=== PATIENT | male | born 1945 | race Caucasian/White ===

== ENCOUNTER → 2019-07-17 00:01 | Outpatient (RCR) | payer MEDICARE, OTHER, SELFPAY | LOC: ONCMED 06-28 06:11 | PROVIDERS: Family Provider Family Medicine; Visit Provider Nurse Practitioner | DX: Z51.12 Encounter for antineoplastic immunotherapy (principal); Z51.11 Encounter for antineoplastic chemotherapy; C83.33 Diffuse large B-cell lymphoma, intra-abdominal lymph nodes; D70.1 Agranulocytosis secondary to cancer chemotherapy; T45.1X5A Adverse effect of antineoplastic and immunosuppressive drugs, initial encounter; Z45.2 Encounter for adjustment and management of vascular access device; E78.5 Hyperlipidemia, unspecified; I10 Essential (primary) hypertension; E03.9 Hypothyroidism, unspecified; Z96.652 Presence of left artificial knee joint | CPT/HCPCS: 36415; 36592; 80053 ×3; 85025 ×3; 96367; 96368; 96372; 96411; 96413; 96415; 96417; 99214; J1100; J1453; J1642; J2469; J2505; J7040 ×2; J9000; J9070 ×2; J9312 ×2; J9370 ==

== ENCOUNTER → 2019-08-16 10:15 | Day surgery (SDC) | payer MEDICARE, OTHER, SELFPAY ==
--- NOTE | 2019-08-16 11:20 | XR_ITS ---
WS: [id number] CHEST XRAY TECHNIQUE: Portable chest. CLINICAL INFORMATION: picc placement COMPARISON: June 27, 2019 FINDINGS: Right PICC line in the proximal to mid SVC in good position. No pneumothorax. XR/XR chest 1V portable [id number] IMPRESSION: Right PICC line in the proximal to mid SVC in good position. No pneumothorax.
[2019-08-16 13:33] VITALS: PULSE 70; RESP 16; TEMP 36.7; O2SAT 97
== END ==
PROVIDERS: Family Provider Registered Nurse; PCP Registered Nurse; Visit Provider Internal Medicine Medical Oncology
DX: C83.33 Diffuse large B-cell lymphoma, intra-abdominal lymph nodes (principal)
CPT/HCPCS: 71045

== ENCOUNTER 2019-08-17 09:23 | Outpatient (RCR) | payer MEDICARE, OTHER, SELFPAY ==
[2019-07-19] MEDS: acetaminophen 325 mg Tablet 650 MG PO (11:09)
--- NOTE | 2019-07-19 17:18 | ONC FU_ITS ---
[facility] Patient Note Patient: Mauro Otero Unit #: [id number]: 1945 Dictated By: Silvano ElliottDate of Visit: Jul 19, 2019 Onc MED Follow-Up/Prog Note Chief Complaint: Lymphoma. History of Present Illness: Mr Otero is a 74-year-old man with diffuse large B-cell lymphoma. He has a known history of abdominal aortic aneurysm for which he underwent abdominal aortic aneurysm repair using bifurcation graft in 2015. On his surveillance CT angiogram in April 2019 he was incidentally noted to have left periaortic lymphadenopathy. He then underwent CT directed needle biopsy of the left periaortic lymph node on 06/05/2019. Pathology was consistent with diffuse large B-cell lymphoma. The tumor cells were noted to be positive for CD45, CD20, CD10, CD23, BCL-2, and BCL-6. They were negative for CD3, CD5, CD21, CD30, and cyclin D1. The staining pattern by IHC was found to be consistent with diffuse large B-cell lymphoma, germinal center type. He was seen by Dr Hoffman for further management. He indicated that he has been feeling pretty good, though his energy had been down a touch, and he had not been very active. It was recommended that he pursue treatment with R-CHOP. He began his first cycle on 06/28/2019. He did have chemo induced neutropenia with ANC of 600 on day 8 of cycle 1. He was given Neulasta support on day 2 and his ANC recovered by day 15 with an ANC of 4400. He did not have any fever during the neutropenic episode. He states he is feeling good overall. He did have some diarrhea after the last chemotherapy treatment. We reviewed when in how much Imodium to start with. Mrs. Otero believes to have some on hand at home. If not they are encouraged to obtain it. He states he is eating good. His energy is fair. He is able to do some activities outside when the weather is good . He denies any pain. He denies any nausea or vomiting. He denies any depression although his seems to disagree. There is some concern about whether he is actually taking the Celexa or not when asked directly if he is taking it, he states he is but when the medication review was obtained they are uncertain if he was taking it or not. He was encouraged to bring his medication bottles with him on his next visit. His ECOG is 2. Past Medical History: Abdominal aortic aneurysm Hyperlipidemia Hypertension Hypothyroidism Past Surgical History: Abdominal aortic aneurysm repair in 2015 Left total knee arthroplasty in 2011 Arthroscopic left knee surgery in 2010 Allergies: No Known Allergies. Medications: ALPRAZolam 1 Tablet (of 0.25 mg) Oral t.i.d. PRN amLODIPine Besylate 1 Tablet (of 5 mg) Oral daily CeleXA 1 Tablet (of 20 mg) Oral daily Levothyroxine Sodium 1 Tablet (of 50 mcg) Oral daily LORazepam 0.5 - 1 Tablet (of 1 mg) Oral t.i.d. PRN Prochlorperazine Maleate 1 Tablet (of 10 mg) Oral q 4 hours PRN Simvastatin 1 Tablet (of 40 mg) Oral daily Family History: Mr. Otero's mother at age 70: brain cancer. Mr. Otero's father at age 85. Mr. Otero has 2 brothers: 1 alive, 1 . He has 2 sisters: 1 alive, 1 . Father at 85 with old age. Mother of brain cancer at age 70. A sister of lung disease and brother from complications related to an aneurysm. His other brother also has a history of aneurysm. Several paternal uncles dropped over . Social History: Mr. Oteor is and he is retired. Mr. Otero has never smoked. He has no history of drinking. Mr. Otero reports the following support systems: lives with spouse, significant other, family, or friends, lives in own house, supportive family/friends willing to assist with needs, and transportation problems exist and will require assistance. His diet consists of regular meals. He indicates his activity level as: light exercise. He is a nonsmoker. He does not drink alcohol. Review Of Symptoms: Constitutional Denies fevers, chills, night sweats, excessive fatigue or weight loss. Allergic/Immunologic No reactions. Eyes Denies significant visual changes. No diplopia. No amaurosis. ENMT Denies changes in hearing, sore throat, mouth sores, difficulty or changes in swallowing ability, and/or sinus drainage. Endocrine No diabetes, thyroid disease or hormone replacement. Denies hot flashes or night sweats. Hematologic/Lymphatic Denies easy bruising or bleeding. The patient denies any tender or palpable lymph nodes. Respiratory Denies dyspnea on exertion, chest pain, cough or hemoptysis. Denies orthopnea. Cardiovascular Denies anginal chest pain, palpitations or orthopnea. Gastrointestinal Denies nausea, vomiting, GI bleeding, or constipation. Denies change in bowel habits and/or stool color, no heartburn or early satiety. He states he did have diarrhea after the last treatment but has not tried anything for it. His does think they have Imodium on hand at home Genitourinary (M) Denies hematuria, dysuria, increased frequency, urgency, hesitancy or incontinence. Musculoskeletal Denies joint pain, swelling or redness. No decreased range of motion. Integumentary Denies chronic rashes, inflammation, ulcerations or skin changes. Neurologic Denies headache, blurred vision, and no areas of focal weakness or numbness. Normal gait. No sensory problems. Psychiatric Denies insomnia, depression, mj or mood swings. When asked about depression or mood swings he states I am okay . He denies depression. His seems to disagree but he is adamant in that he is not having depression and I am okay . Vital Signs: Performed on Jul 19, 2019 09:35 Height - 71.00 in Weight - 204.4 lbs (LOW) BSA - 2.13 sq.m BMI - 28.51 Temperature - 97.4 F (LOW) Pulse - 74 /min Respiration - 22 /min BP - 125/74 mm(hg) O2 Sat - 97 % Pain - 0,2 - Ambulatory/capable of all self-care, unable to perform any work activities. Up and about more than 50% of waking hours. (ECOG) Physical Examination: Constitutional Alert, oriented, no acute distress. Skin pink, warm and dry. Head Normocephalic; atraumatic. Eyes Conjunctivae and sclerae are clear and without icterus. Pupils are reactive and equal. ENMT No oral exudates, ulcers, masses, thrush or mucositis. Oropharynx clear. Tongue normal. Neck Supple without masses or thyromegaly. No jugular venous distension. Hematologic/Lymphatic No petechiae or purpura. No tender or palpable lymph nodes in the cervical or supraclavicular areas. Respiratory Lungs are clear to auscultation without rhonchi or wheezing. Cardiovascular Regular rate and rhythm of heart without murmurs,clicks, gallops or rubs. Abdomen Non-tender, non-distended, no masses or ascites. Good bowel sounds noted in all quads. No guarding or rebound tenderness. No pulsatile masses. Back/Spine Non-tender to palpation. Extremities No visible deformities, no cyanosis, clubbing or edema. Musculoskeletal No tenderness or swelling, normal range of motion without obvious weakness. Integumentary No rashes or lesions. Neurologic No sensory or motor deficits, normal cerebellar function, normal gait. Psychiatric Alert and oriented times three. Coherent speech. Verbalizes understanding of our discussions today. Laboratory:Test performed on Jul 04, 2019 07:50 Sodium 138 mmol/L Potassium 4.2 mmol/L Chloride 101 mmol/L CO2 27 mmol/L Anion Gap 14.2 BUN 15 mg/dL Creatinine 0.6 mg/dL Cr Clearance (Est) 144.2100 mL/min Glucose 142 mg/dl Calcium 8.5 mg/dL Protein, Total 7.1 g/dL Albumin 4.2 g/dL Globulin 2.9 gm/dL Bilirubin, Total 0.4 mg/dL ALT (SGPT) 12 U/L AST (SGOT) 15 U/L Alkaline Phosphatase 77 U/L WBC 1.1 10 3/uL RBC 3.81 10 6/uL HGB 11.6 g/dL HCT 35.6 % MCV 93.4 fl MCH 30.4 pg MCHC 32.6 g/dl RDW 13.1 % Platelet Count 100 10 3/cmm MPV 9.7 fl Neutrophils 0.6 10 3/uL Lymphocytes 0.2 10 3/uL Monocytes 0.0 10 3/uL Eosinophils 0.0 10 3/uL Basophils 0.0 10 3/uL Neutrophil % 56.6 % Lymphocyte % 20.8 % Monocyte % 0.9 % Eosinophil % 1.9 % Basophils % 0.0 % CBC Slide Review SLIDE REVIEW PERFORM SLIDE REVIEW AGREES WITH AUTOMATED RESULTS ST Test performed on Jun 26, 2019 13:45 Hepatitis B Surf Antigen Non-Reactive Hepatitis B Surface Ab < 3.5 STATUS of IMMUINITY Inconsistent with Immunity 0.0 - 8.5 mIU/mL Consistent with Immunity >8.5 mIU/mL Hepatitis B Core Ab, Total Non-Reactive Test performed on Jun 20, 2019 16:05 LDH (Total) 302 U/L Uric Acid 5.2 mg/dl PT 14.2 SECONDS INR 1.06 Impression: 1. Patient with diffuse large B-cell lymphoma, germinal center subtype, presenting with CT evidence of left periaortic lymphadenopathy. Staging is incomplete. 2. He underwent CT-directed needle biopsy of a left periaortic lymph node on 06/05/2019. His other medical illnesses include: 3. Hypertension. 4. Hyperlipidemia. 5. Hypothyroidism. 6. He underwent abdominal aortic aneurysm repair with bifurcation graft in 2016. /The pathology results and clinical implications were reviewed with the patient and his . He has newly diagnosed diffuse large B-cell lymphoma. Thus far the only known site of involvement is a left periaortic lymph node, but he will need to complete staging with PET/CT and possibly bone marrow aspiration/biopsy. We discussed the fact that lymphomas /are generally responsive to chemotherapy and with an intermediate grade lymphoma the disease would potentially be curable. The major limitation in treating elderly patients is the potential for chemotherapy related toxicity, particularly the risk of neutropenic fever. The standard treatment, though, would be 6 cycles of CHOP chemotherapy in combination with rituximab. PiCC line insertion due unable to placement complications of port a cath. His first chemo stated on 06/28/19. Plan: 1. Proceed with cycle 2 R-CHOP. He will also continue growth factor. He also continue the same anti-medics as they are working well for him. 2. He was advised to make sure he has Imodium on hand in case he has recurrent diarrhea. He is advised to take it at the first loose stool and call if he is continues to have problems after 6-8 tablets in a day. He would need Lomotil at that time. 3. Labs from 07/17/2019 were reviewed in detail and discussed with and Mrs. Otero and a copy was given to them. WBC 6.1, hemoglobin 10.8, platelets 3 and 29,000 ANC is 4800 potassium 4.3 creatinine is 0.7 LFTs are normal. 4. He will need to refill his antibiotics and have them on hand if he use them at all last cycle. He had neutropenia on day 8 with an ANC of 600. He recovered well with an ANC of 4400 the following week. 5. We will plan for CBC/CMP weekly for chemo monitoring 6. . Mrs. Otero instructed to call in the interim if any questions or problems arise. 7. He states the Celexa to 20 mg po daily is controlling his depression. However when the medication review was obtained Mr. Mrs. Otero was uncertain if he was taking the Celexa at that time. He is adamant in denying that he is having any worsening of depression. Signed By: Silvano Elliott-, [facility] Murray Hoffman MD <<Signature on File>>
[2019-08-08 16:02] LABS: Basophils % 0.9 %; Eosinophils % 0.5 %; Hematocrit 34.7 % (42.0-52.0); Lymphocytes # 0.6 10^3/uL (0.8-4.8); Lymphocytes % 14.7 %; Mean Corpuscular HGB Conc 31.7 g/dL (30.0-36.0); Mean Corpuscular Hemoglobin 29.2 pg (28.0-34.0); Mean Platelet Volume 9.1 fL (7.4-10.4); Monocytes # 0.4 10^3/uL (0.2-0.9); Neutrophils # 3.1 10^3/uL (1.8-7.7); Nucleated Red Blood Cells % 0 %; Platelet Count 204 10^3/cmm (130-400); Red Blood Count 3.77 10^6/uL (4.1-5.3); Red Cell Distribution Width 16.3 % (12.1-15.1); White Blood Count 4.3 10^3/uL (4.0-10.0)
[2019-08-08 19:00] LABS: Alanine Aminotransferase 11 U/L (0-41); Albumin Level 3.9 g/dL (3.5-5.2); Alkaline Phosphatase 78 IU/L (40-130); Anion Gap 15.3 (5-19); Aspartate Amino Transferase 17 U/L (0-40); Blood Urea Nitrogen 9 mg/dL (8-23); Calcium 9.5 mg/Dl (8.8-10.2); Carbon Dioxide 26 mmol/L (22-29); Chloride 103 mmol/L (98-107); Globulin 3.1 g/dL (1.3-4.6); Glucose 85 mg/dL (74-106); Lactate Dehydrogenase 184 U/L (135-225); Potassium 4.3 mmol/L (3.5-5.1); Sodium 140 mmol/L (136-145); Total Bilirubin 0.3 mg/dL (0.15-1.2)
[2019-08-09] MEDS: acetaminophen 325 mg Tablet 650 MG PO (10:07)
[2019-08-09] MEDS: sodium chloride 0.9% 500 ML 999 ML IV (10:07)
--- NOTE | 2019-08-11 15:48 | ONC FU_ITS ---
Dr. Hoffman Patient Follow-Up Note Patient: Mauro Otero Unit #: [id number]: 1945 Dicatated By: Murray Hoffman M.D.Date of Visit:Aug 09, 2019 Onc Med Follow-up/Prog Note Chief Complaint: Lymphoma. History of Present Illness: This is a 74-year-old man with diffuse large B-cell lymphoma, by clinical evaluation at least stage III and IPI at least 3. He has a known history of abdominal aortic aneurysm for which he underwent abdominal aortic aneurysm repair using bifurcation graft in 2015. On his surveillance CT angiogram in April 2019 he was incidentally noted to have left periaortic lymphadenopathy. He then underwent CT directed needle biopsy of the left periaortic lymph node on 06/05/2019. Pathology was consistent with diffuse large B-cell lymphoma. The tumor cells were noted to be positive for CD45, CD20, CD10, CD23, BCL-2, and BCL-6. They were negative for CD3, CD5, CD21, CD30, and cyclin D1. The staining pattern by IHC was found to be consistent with diffuse large B-cell lymphoma, germinal center type. I had seen him initially on 06/18/2019. Staging PET/CT on 06/23/2019 showed a 1.9 x 1.3 cm left upper lobe pulmonary nodule with SUV 23.8, consistent with extranodal disease. Also noted were FDG positive lymph nodes in the posterior mediastinum and left hilar region with SUVs up to 9.4. Bilateral retrocrural lymph nodes were also FDG positive. A complex retroperitoneal mass was noted to envelop the aortic aneurysm, roughly measuring 12.9 x 9.9 cm with SUV 34.4. There were positive mesenteric lymph nodes, consistent with lymphoma. His baseline echocardiogram showed normal left ventricular systolic function with ejection fraction estimated at 65%. With those findings and with relatively good performance status, he was recommended to undergo treatment with R-CHOP chemotherapy. His other medical illnesses, in addition to the abdominal aortic aneurysm, include hypertension, hyperlipidemia, hypothyroidism, and degenerative arthritis. He is a non-smoker. INTERIM HISTORY: He began cycle 1 of R-CHOP chemotherapy on 06/28/2019. He tolerated the treatment with acceptable toxicity, and he was able to continue with cycle 2 on 07/19/2019. He is seen for a follow-up visit. He has been feeling good generally. He has been tolerating the chemotherapy surprisingly well. He says his energy has been good, and he is doing normal stuff . ECOG score is 1. He has good appetite. He has no fever or night sweats. He has had no mouth sores. He has no shortness of breath, cough, or chest pain. He has no GI complaints other than 1 or 2 episodes of diarrhea following his first treatment. He has had none since then. Bladder function has been okay. He has no significant joint or bone pain. He has no numbness/paresthesia or other focal neurologic symptoms. Medications: ALPRAZolam 1 Tablet (of 0.25 mg) Oral t.i.d. PRN, amLODIPine Besylate 1 Tablet (of 5 mg) Oral daily, CeleXA 1 Tablet (of 20 mg) Oral daily, Levothyroxine Sodium 1 Tablet (of 50 mcg) Oral daily, LORazepam 0.5 - 1 Tablet (of 1 mg) Oral t.i.d. PRN, Prochlorperazine Maleate 1 Tablet (of 10 mg) Oral q 4 hours PRN, Simvastatin 1 Tablet (of 40 mg) Oral daily Allergies: No Known Allergies. Review of Systems: Constitutional - His energy is pretty good. He is able to do light work. His appetite is good. He has lost weight. He has had no fever or night sweats. ECOG score is 1, ENMT - No sinus congestion/drainage. No mouth sores. No sore throat or difficulty swallowing, Hematologic/Lymphatic - No abnormal bruising or bleeding, Respiratory - No shortness of breath. No cough. No pleuritic pain or hemoptysis, Cardiovascular - No angina pain. No palpitations, Gastrointestinal - No nausea or vomiting. No heartburn or acid reflux. He had diarrhea once or twice after his first treatment, but none since then. No blood in the stool or black stools, Genitourinary (M) - No dysuria or hematuria. No urinary frequency. No urgency or incontinence, Musculoskeletal - He currently has no joint or bone pain, Integumentary - No skin complications, Neurologic - No headache or dizziness. No numbness/paresthesias or other focal neurologic symptoms, Psychiatric - No anxiety or depression. No insomnia. Vital Signs: Performed on Aug 09, 2019 09:05 Height - 71.00 in Weight - 203.2 lbs (LOW) BSA - 2.12 sq.m BMI - 28.34 Temperature - 98.1 F (LOW) Pulse - 68 /min Respiration - 16 /min BP - 121/70 mm(hg) O2 Sat - 98 % Pain - 0 Fatigue - 8 Physical Examination: Constitutional - He looks pretty good generally, Eyes - Sclerae nonicteric. Conjunctivae clear, ENMT - No lesions noted in the oral cavity, Hematologic/Lymphatic - No cervical, clavicular, or axillary adenopathy, Respiratory - Lungs are clear with good air movement bilaterally, Cardiovascular - Heart rhythm is regular. There is no murmur, gallop, or rub noted, Abdomen - Soft. He has a large ventral hernia. Liver and spleen are not enlarged. There is no abdominal mass or ascites noted and there is no inguinal adenopathy, Extremities - No edema, Neurologic - No focal neurologic deficits noted. Lab/Imaging: CBC shows hemoglobin 11.0 g, white blood cell count 4300, and platelet count 204,000. Comprehensive metabolic profile is unremarkable. LDH is normal at 184 U/L. Impression: 1. Patient with diffuse large B-cell lymphoma, germinal center subtype, presenting with CT evidence of left periaortic lymphadenopathy. By clinical evaluation his disease was at least stage III with IPI score 3. 2. There was also PET/CT evidence of FDG avid left upper lobe pulmonary nodule, possibly indicative of extranodal lymphoma (stage IV) versus other primary malignancy. 3. He underwent CT-directed needle biopsy of a left periaortic lymph node on 06/05/2019. His other medical illnesses include: 4. Hypertension. 5. Hyperlipidemia. 6. Hypothyroidism. 7. Degenerative arthritis. 8. He underwent abdominal aortic aneurysm repair with bifurcation graft in 2015. He began treatment with R-CHOP chemotherapy, cycle 1 day 1 on 06/28/2019. He tolerated the treatment well, and he continued with cycle 2 on 07/19/2019. Thus far he continues to have very minimal toxicity with the chemotherapy. He has not yet been evaluated for response. Plan: He will proceed now with cycle 3 of R-CHOP chemotherapy. The dosages will remain the same. He returns in 3 weeks. He will have a restaging PET/CT prior to that visit. Signed By: Murray Hoffman M.D. <<Signature on File>>
== END 2019-08-17 23:59 | disposition home or self-care (01) ==
LOC: ONCMED 09:23
PROVIDERS: Nurse Practitioner; Family Provider Registered Nurse; PCP Registered Nurse; Visit Provider Internal Medicine Medical Oncology
DX: Z51.12 Encounter for antineoplastic immunotherapy (principal); C83.33 Diffuse large B-cell lymphoma, intra-abdominal lymph nodes; D70.1 Agranulocytosis secondary to cancer chemotherapy; T45.1X5A Adverse effect of antineoplastic and immunosuppressive drugs, initial encounter; E78.5 Hyperlipidemia, unspecified; I10 Essential (primary) hypertension; E03.9 Hypothyroidism, unspecified; Z96.652 Presence of left artificial knee joint
CPT/HCPCS: 80053; 83615; 85025; 87070; 87205; 96367; 96372; 96411; 96413; 96415; 96417; 99214; J1100; J1200; J1453; J2469; J2505; J7040; J9000; J9070; J9312; J9370

== ENCOUNTER 2019-09-11 13:42 | Outpatient (RCR) | payer MEDICARE, OTHER, SELFPAY ==
[2019-08-29 12:39] LABS: Basophils % 0.3 %; Hematocrit 35.4 % (42.0-52.0); Hemoglobin 11.3 g/dL (11.7-16.6); Lymphocytes # 0.7 10^3/uL (0.8-4.8); Lymphocytes % 11.9 %; Mean Corpuscular HGB Conc 31.9 g/dL (30.0-36.0); Mean Corpuscular Hemoglobin 30.1 pg (28.0-34.0); Mean Corpuscular Volume 94.1 fL (80-94); Mean Platelet Volume 9.1 fL (7.4-10.4); Monocytes # 0.5 10^3/uL (0.2-0.9); Monocytes % 8.5 %; Neutrophils # 4.7 10^3/uL (1.8-7.7); Neutrophils % 77.8 %; Nucleated Red Blood Cells % 0 %; Platelet Count 209 10^3/cmm (130-400); Red Blood Count 3.76 10^6/uL (4.1-5.3); Red Cell Distribution Width 17.7 % (12.1-15.1)
[2019-08-29 12:49] LABS: Alanine Aminotransferase 15 U/L (0-41); Albumin Level 4.2 g/dL (3.5-5.2); Alkaline Phosphatase 63 IU/L (40-130); Aspartate Amino Transferase 16 U/L (0-40); Carbon Dioxide 28 mmol/L (22-29); Chloride 104 mmol/L (98-107); Globulin 2.8 g/dL (1.3-4.6); Glucose 73 mg/dL (65-115); Lactate Dehydrogenase 171 U/L (135-225); Sodium 141 mmol/L (136-145); Total Bilirubin 0.2 mg/dL (0.15-1.2)
[2019-08-29 13:36] LABS: Blood Urea Nitrogen 17 mg/dL (8-23)
[2019-08-29 14:15] LABS: Calcium 9.3 mg/dL (8.5-10.5)
[2019-09-05] MEDS: sodium chloride 0.9% 1,000 ML 999 ML IV (10:54)
[2019-09-05] MEDS: acetaminophen 325 mg Tablet 650 MG PO (11:14)
--- NOTE | 2019-09-09 16:57 | ONC FU_ITS ---
Dr. Hoffman Patient Follow-Up Note Patient: Mauro Otero Unit #: [id number]: 1945 Dicatated By: Murray Hoffman M.D.Date of Visit:Sep 05, 2019 Onc Med Follow-up/Prog Note Chief Complaint: Lymphoma. History of Present Illness: This is a 74-year-old man with diffuse large B-cell lymphoma, by clinical evaluation at least stage III and IPI at least 3. He has a known history of abdominal aortic aneurysm for which he underwent abdominal aortic aneurysm repair using bifurcation graft in 2015. On his surveillance CT angiogram in April 2019 he was incidentally noted to have left periaortic lymphadenopathy. He then underwent CT directed needle biopsy of the left periaortic lymph node on 06/05/2019. Pathology was consistent with diffuse large B-cell lymphoma. The tumor cells were noted to be positive for CD45, CD20, CD10, CD23, BCL-2, and BCL-6. They were negative for CD3, CD5, CD21, CD30, and cyclin D1. The staining pattern by IHC was found to be consistent with diffuse large B-cell lymphoma, germinal center type. I had seen him initially on 06/18/2019. Staging PET/CT on 06/23/2019 showed a 1.9 x 1.3 cm left upper lobe pulmonary nodule with SUV 23.8, consistent with extranodal disease. Also noted were FDG positive lymph nodes in the posterior mediastinum and left hilar region with SUVs up to 9.4. Bilateral retrocrural lymph nodes were also FDG positive. A complex retroperitoneal mass was noted to envelop the aortic aneurysm, roughly measuring 12.9 x 9.9 cm with SUV 34.4. There were positive mesenteric lymph nodes, consistent with lymphoma. His baseline echocardiogram showed normal left ventricular systolic function with ejection fraction estimated at 65%. With those findings and with relatively good performance status, he was recommended to undergo treatment with R-CHOP chemotherapy. His other medical illnesses, in addition to the abdominal aortic aneurysm, include hypertension, hyperlipidemia, hypothyroidism, and degenerative arthritis. He is a non-smoker. INTERIM HISTORY: He began cycle 1 of R-CHOP chemotherapy on 06/28/2019. He tolerated the treatment with acceptable toxicity. He was then able to continue with cycle 2 on 07/19/2019 and with cycle 3 on 08/09/2019. Restaging PET/CT on 09/01/2019 showed residual abdominal mass encasing the aorta measuring 8.6 x 8.7 cm but with only minimal FDG activity. Mediastinal lymph nodes were noted to be subcentimeter in size and FDG negative. Retrocrural and lymph nodes were also subcentimeter in size and FDG negative. The left upper lobe pulmonary nodule was noted to measure 1.0 cm and it was no longer clearly solid. It was entirely FDG negative. Overall, the findings were consistent with a near complete response to therapy (Deauville Criteria 2). He is seen for a scheduled visit. He says he is feeling pretty good, though his family indicates that he has had a definite decline in his activity since his last treatment. They also have noticed significant changes in memory and cognitive function. He is still up and around. His ECOG score is 2. He has good appetite. His weight is stable. He has no fever or night sweats. He has had no mouth sores. He does have some hoarseness. He does not complain of shortness of breath, cough, or chest pain. He has had no nausea/vomiting. He has had some loose stools, and he occasionally has had difficulty controlling them, but he has been insistent on taking a laxative every day. He has frequent urination. He has no significant joint or bone pain. He does not complain of headache. He has having some difficulty with balance. He has no numbness/paresthesia or other focal neurologic symptoms. Medications: ALPRAZolam 1 Tablet (of 0.25 mg) Oral t.i.d. PRN, amLODIPine Besylate 1 Tablet (of 5 mg) Oral daily, CeleXA 1 Tablet (of 20 mg) Oral daily, Levothyroxine Sodium 1 Tablet (of 50 mcg) Oral daily, LORazepam 0.5 - 1 Tablet (of 1 mg) Oral t.i.d. PRN, Prochlorperazine Maleate 1 Tablet (of 10 mg) Oral q 4 hours PRN, Simvastatin 1 Tablet (of 40 mg) Oral daily Allergies: No Known Allergies. Review of Systems: Constitutional - His energy is pretty good generally. He does not do much physical activity, but he is up and around at home. His appetite is good and his weight is holding stable. No fever, chills, hot flashes, or night sweats. ECOG score is 2, ENMT - No sinus congestion/drainage. No mouth sores. No sore throat or difficulty swallowing, Hematologic/Lymphatic - No abnormal bruising or bleeding, Respiratory - No shortness of breath. No cough. No pleuritic pain or hemoptysis, Cardiovascular - No angina pain. No palpitations, Gastrointestinal - No nausea or vomiting. No heartburn or acid reflux. No diarrhea or constipation. He sometimes has incontinence. No blood in the stool or black stools, Genitourinary (M) - No dysuria or hematuria. He has urinary frequency. No urgency or incontinence, Musculoskeletal - No joint or bone pain, Integumentary - No skin complications, Neurologic - No headache. His balance is worse. No numbness/paresthesias or other focal neurologic symptoms. He has trouble with his memory, Psychiatric - No anxiety or depression. No insomnia. Vital Signs: Performed on Sep 05, 2019 09:48 Height - 71.00 in Weight - 201.2 lbs (HIGH) BSA - 2.11 sq.m BMI - 28.06 Temperature - 98.4 F Pulse - 74 /min Respiration - 24 /min BP - 134/80 mm(hg) O2 Sat - 99 % Pain - 0 Physical Examination: Constitutional - He appears somewhat weaker generally, Eyes - Sclerae nonicteric. Conjunctivae clear, ENMT - No lesions noted in the oral cavity, Hematologic/Lymphatic - No cervical, clavicular, or axillary adenopathy, Respiratory - Lungs are clear with good air movement bilaterally, Cardiovascular - Heart rhythm is regular. There is no murmur, gallop, or rub noted, Abdomen - Soft. He has a large ventral hernia. Liver and spleen are not enlarged. There is no abdominal mass or ascites noted and there is no inguinal adenopathy, Extremities - No edema, Neurologic - He does appear to have some decline in cognitive function, and he has somewhat of a shuffling gait. There are no focal neurologic deficits noted. Lab/Imaging: Test performed on Aug 29, 2019 07:50 LDH (Total) 171 U/L Sodium 141 mmol/L Potassium 4.0 mmol/L Chloride 104 mmol/L CO2 28 mmol/L Anion Gap 13.0 BUN 17 mg/dL Creatinine 0.7 mg/dL Cr Clearance (Est) 121.5400 mL/min Glucose 73 mg/dL Calcium 9.3 mg/dL Protein, Total 7.0 g/dL Albumin 4.2 g/dL Globulin 2.8 g/dL Bilirubin, Total 0.2 mg/dL ALT (SGPT) 15 U/L AST (SGOT) 16 U/L Alkaline Phosphatase 63 IU/L WBC 6.0 10 3/uL RBC 3.76 10 6/uL HGB 11.3 g/dL HCT 35.4 % MCV 94.1 fL MCH 30.1 pg MCHC 31.9 g/dL RDW 17.7 % Platelet Count 209 10 3/cmm MPV 9.1 fL Neutrophils 4.7 10 3/uL Lymphocytes 0.7 10 3/uL Monocytes 0.5 10 3/uL Eosinophils 0.0 10 3/uL Basophils 0.0 10 3/uL Neutrophil % 77.8 % Lymphocyte % 11.9 % Monocyte % 8.5 % Eosinophil % 0.0 % Basophils % 0.3 % Impression: 1. Patient with diffuse large B-cell lymphoma, germinal center subtype, presenting with CT evidence of left periaortic lymphadenopathy. By clinical evaluation his disease was at least stage III with IPI score 3. 2. There was also PET/CT evidence of FDG avid left upper lobe pulmonary nodule, possibly indicative of extranodal lymphoma (stage IV) versus other primary malignancy. 3. He underwent CT-directed needle biopsy of a left periaortic lymph node on 06/05/2019. His other medical illnesses include: 4. Hypertension. 5. Hyperlipidemia. 6. Hypothyroidism. 7. Degenerative arthritis. 8. He underwent abdominal aortic aneurysm repair with bifurcation graft in 2015. He began treatment with R-CHOP chemotherapy, cycle 1 day 1 on 06/28/2019. He tolerated the treatment well. He continued with cycle 2 on 07/19/2019 and with cycle 3 on 08/09/2019. Following his last cycle of treatment there has been definite decline in his performance status and a significant change in his cognitive function and memory. He does have a very good response by restaging PET/CT. Plan: I reviewed the PET/CT findings with the patient and his family. We discussed the clinical implications. He has had a very good response to the chemotherapy, but it does not appear to be a complete response. Ideally he should complete 6 cycles of treatment. However, he has had a significant decline in his performance status and his cognitive function following his last treatment, and I feel that there will be significant risks with continuing further chemotherapy. However, at a minimum, I think he should complete 1 more cycle, as he is otherwise tolerating it well. They are agreeable, so that he will proceed today with cycle 4 of R-CHOP. He will then be followed on observation/expectant management. Signed By: Murray Hoffman M.D. <<Signature on File>>
[2019-09-11 14:47] LABS: Basophils % 1.1 %; Eosinophils # 0.1 10^3/uL (0.0-0.8); Eosinophils % 1.8 %; Hematocrit 33.1 % (42.0-52.0); Hemoglobin 10.6 g/dL (11.7-16.6); Lymphocytes # 0.4 10^3/uL (0.8-4.8); Lymphocytes % 12.7 %; Mean Corpuscular Hemoglobin 30.4 pg (28.0-34.0); Mean Corpuscular Volume 94.8 fL (80-94); Mean Platelet Volume 9.8 fL (7.4-10.4); Monocytes # 0.1 10^3/uL (0.2-0.9); Monocytes % 4.2 %; Neutrophils # 2.2 10^3/uL (1.8-7.7); Neutrophils % 78.8 %; Nucleated Red Blood Cells % 0 %; Platelet Count 79 10^3/cmm (130-400); Red Blood Count 3.49 10^6/uL (4.1-5.3); Red Cell Distribution Width 16.7 % (12.1-15.1); White Blood Count 2.8 10^3/uL (4.0-10.0)
[2019-09-11 15:23] LABS: Slide Review Slide Review Perform
== END 2019-09-15 23:59 | disposition home or self-care (01) ==
LOC: ONCMED 13:42
PROVIDERS: Family Provider Registered Nurse; PCP Registered Nurse; Visit Provider Internal Medicine Medical Oncology
DX: Z51.12 Encounter for antineoplastic immunotherapy (principal); C83.33 Diffuse large B-cell lymphoma, intra-abdominal lymph nodes; D70.1 Agranulocytosis secondary to cancer chemotherapy; T45.1X5A Adverse effect of antineoplastic and immunosuppressive drugs, initial encounter; I10 Essential (primary) hypertension; E78.5 Hyperlipidemia, unspecified; E03.9 Hypothyroidism, unspecified; M19.90 Unspecified osteoarthritis, unspecified site; Z79.899 Other long term (current) drug therapy
CPT/HCPCS: 36592; 80053; 83615; 85025; 96367; 96372; 96411; 96413; 96415; 96417; 99214; J1100; J1200; J1453; J2469; J2505; J7030; J7040; J9000; J9070; J9312; J9370

== ENCOUNTER 2019-09-20 06:08 | Outpatient (RCR) | payer MEDICARE, OTHER, SELFPAY ==
--- NOTE | 2019-09-20 08:22 | MR_ITS ---
WS: [id number] MRI HEAD WITH CONTRAST TECHNIQUE: Sagittal T1, T2 axial, T2 axial FLAIR, axial susceptibility weighted imaging, axial diffus ion weighted images, and coronal T2 images were obtained. Pre and post-T1 axial and post T1 coronal i mages. ADC and FSPGR images. CLINICAL INFORMATION: CONFUSION;MEMORY LOSS;EVAL OF NEW SYMPTOMS;HX OF CANCER COMPARISON: None. FINDINGS: Large heterogeneous enhancing left frontal mass. Large left frontal mass with internal necrosis and c ystic change. Left frontal mass measures approximately 7.1 x 3.3 x 5.5 CM. Large amount of surroundin g edema and mass effect on the left lateral ventricle. Left to right midline shift measures approxima tely 1.7 CM. No significant hydrocephalus. No significant ventricular trapping. Additional peripheral enhancement involving the left frontal mass extending to the left ventricular m argin with ependymal enhancement. Suspect leptomeningeal and CSF dissemination of disease. Mass effec t and flattening of the adjacent corpus callosum. Small amount of enhancement crosses midline along t he right frontal horn. In addition peripheral enhancement extends to the cortical surface with leptom eningeal involvement. A few small foci of hemosiderin within the left frontal mass. No large hematoma . No evidence of acute ischemia. Moderate parenchymal volume loss. Mild small vessel changes. Normal va scular flow voids at the skull base. Heterogeneous bone marrow signal in the upper cervical spine and clivus consistent with history of lymphoma. No other abnormal foci of enhancement. Paranasal sinuses and mastoid air cells are well aerated. Notified Rosita ALVARADO at 09/20/2019 10:00 AM MR/MR head wo/w con [id number] IMPRESSION: 1. Large heterogeneously enhancing left frontal mass consistent with metastati c disease measuring 7.1 x 3.3 x 5.5 cm described above. Large amount of surroun ding edema. 2. Left to right midline shift measuring 1.7 CM. 3. Enhancement extends to the ventricular surface and cortical surface suspici ous for leptomeningeal spread of disease 4. Effacement of the left lateral ventricle and partial effacement right later al ventricle. No significant trapping or hydrocephalus. 5. Heterogeneous bone marrow signal in the upper cervical spine and clivus con sistent with history of lymphoma. 6. No other abnormal intracranial enhancing foci.
[2019-09-20] MEDS: sodium chloride 0.9% 1,000 ML 999 ML IV (09:00)
[2019-09-20 09:19] LABS: Basophils % 0.3 %; Eosinophils # 0.1 10^3/uL (0.0-0.8); Eosinophils % 0.9 %; Hematocrit 33.5 % (42.0-52.0); Hemoglobin 10.8 g/dL (11.7-16.6); Lymphocytes # 0.6 10^3/uL (0.8-4.8); Lymphocytes % 9.4 %; Mean Corpuscular HGB Conc 32.2 g/dL (30.0-36.0); Mean Corpuscular Hemoglobin 30.6 pg (28.0-34.0); Mean Corpuscular Volume 94.9 fL (80-94); Monocytes # 0.6 10^3/uL (0.2-0.9); Monocytes % 8.8 %; Neutrophils # 5.1 10^3/uL (1.8-7.7); Neutrophils % 79.5 %; Nucleated Red Blood Cells % 0 %; Platelet Count 155 10^3/cmm (130-400); Red Blood Count 3.53 10^6/uL (4.1-5.3); Red Cell Distribution Width 16.8 % (12.1-15.1); White Blood Count 6.4 10^3/uL (4.0-10.0)
[2019-09-20 11:24] LABS: Alanine Aminotransferase 9 U/L (0-41); Albumin Level 3.9 g/dL (3.5-5.2); Alkaline Phosphatase 87 IU/L (40-130); Anion Gap 15.2 (5-19); Aspartate Amino Transferase 18 U/L (0-40); Blood Urea Nitrogen 13 mg/dL (8-23); Calcium 9.6 mg/dL (8.5-10.5); Carbon Dioxide 25 mmol/L (22-29); Chloride 103 mmol/L (98-107); Globulin 3.5 g/dL (1.3-4.6); Glucose 90 mg/dL (65-115); Potassium 4.2 mmol/L (3.5-5.1); Sodium 139 mmol/L (136-145); Total Bilirubin 0.2 mg/dL (0.15-1.2); Total Protein 7.4 g/dL (6.6-8.7)
--- NOTE | 2019-10-10 17:18 | N.ONRAD NP_ITS ---
Radiation Oncology New Patient Visit Patient: Mauor Otero MR#: [id number] : 1945> Age: 74> Sex: Male> Dictated by: Dr. Xavier Lewis Date of Service: 10/10/2019 Referring Physician(s) : Dr. Murray Hoffman Diagnosis: 1) C83.33 - diffuse large b-cell lymphoma, intra-abdominal lymph nodes, Diagnosed 06/18/2019 (active), stage iiia, iii, a. 2) Brain, Glioblastoma Radiotherapy to date: Summary > No prior radiation therapy. Chief Complaint / History of Present Illness: Mr. Otero is a 74-year-old man who was undergoing chemotherapy for diffuse large B-cell lymphoma. He developed neurologic symptoms and an MRI of the brain showed a large left frontal lobe mass. He was referred to [facility]. He underwent surgery 09/24/2019. A gross resection was accomplished. The pathology is returned glioblastoma. Mr. Otero spent several days in rehab. His artemio removed and he was discharged today. He is referred for evaluation for postoperative radiation. At this time Mr. Otero denies headaches, nausea, dizziness, double vision, altered vision, or lack of coordination. He is experiencing some weakness and his gait is more stable if he uses a walker. However, he can walk without a walker. He has no troublesome pulmonary symptoms such as dyspnea, cough, sputum production, or chest discomfort. He is eating well and has no troublesome upper GI or lower GI symptoms. Current Medications: Acetaminophen, aLPRAZolam, aLPRAZolam, amLODIPine Besylate, celeXA, celeXA, cyclophosphamide, dexamethasone Sodium Phosphate, diphenhydrAMINE HCl, dOXOrubicin HCl, emend, hYDROcodone-Acetaminophen, levothyroxine Sodium, lORazepam, lORazepam, neulasta, palonosetron HCl, predniSONE, prochlorperazine Maleate, prochlorperazine Maleate, riTUXimab, simvastatin, sodium Chloride, vinCRIStine Sulfate, zithromax Z-Ronn. Allergies: No Known Allergies Medical History: - Abdominal aortic aneurysm, - hyperlipidemia, - hypertension, - hypothyroidism. No history of collagen vascular disease. No previous radiation therapy. Surgical History: Abdominal aortic aneurysm repair in 2015, arthroscopic left knee surgery in 2010 and left total knee arthroplasty in 2011. Family History: Father is at age 85. Mother is at age 70 having experienced brain cancer. Brother is alive. Brother is . Sister is alive. Sister is . Father at 85 with old age. Mother of brain cancer at age 70. A sister of lung disease and brother from complications related to an aneurysm. His other brother also has a history of aneurysm. Several paternal uncles dropped over . Social History: Last screened on 08/30/2019 - Never smoked. Last screened on 08/30/2019 - Never drank. Patient indicated access to the following support systems: lives with spouse, significant other, family, or friends, lives in own house, supportive family/friends willing to assist with needs, and transportation problems exist and will require assistance. Patient indicated the following nutritional habits: regular meals. Patient indicated participation in the following forms of activity: light exercise. Current Complaints / Review of Systems: . Vital Signs: Physical Exam: Alert, oriented, in no acute distress. The incision on the left side of his scalp is intact. There is no evidence of infection. Cranial nerves are intact. Motor strength is diminished in the right upper extremity, particularly with proofsheet corrector. There is slight weakness in the right lower extremity on flexion at the hip. Otherwise strength is symmetrical. Finger-nose exam intact. Irdt-ci-glip intact. He has a slightly unsteady gait, though part of that was judged to be related to generalized weakness. Neck is supple. No cervical or supraclavicular lymphadenopathy. Lungs clear to percussion. On auscultation no rales, rhonchi, or wheezes. Heart rhythm regular. No murmur or gallop. Abdomen no distention. No organomegaly or mass or tenderness. Performance Status: KPS 40/100 Pathology: Primary, c83.33 - diffuse large b-cell lymphoma, intra-abdominal lymph nodes, Diagnosed 06/18/2019 (active) stage iiia, iii, a. Lab: Test performed on 09/20/2019 8:57 AM RBC - 3.53 10 6/ul (low), HGB - 10.8 g/dl (low), HCT - 33.5 % (low), MCV - 94.9 fl (high), RDW - 16.8 % (high) and Lymphocytes - 0.6 10 3/ul (low). Imaging: Preop and postop MRI is reviewed. The preop MRI showed a large left frontal lobe mass with significant edema and midline shift. The postop MR continued to show edema and midline shift. There has been a significant reduction in the bulk from the tumor mass, though the degree of resection was difficult to juvenile court judge. Impression: Mr. Otero is a 74-year-old man who is approximately 2 weeks postop from resection of a left frontal lobe glioblastoma. He is a candidate for postoperative radiation. I discussed his case with Dr. Hoffman and he is going to give concomitant Temodar. The patient is aware of that. We discussed a 6-week course of radiation. Reviewed side effects and possible complications. I discussed that the critical structures that we will need to protect are the optic chiasm, optic nerve, and brainstem. I discussed there is a small risk of debilitating brain injury. I discussed the acute side effects of treatment. I reviewed that sometimes worsening edema requires reinitiation or increasing the dose of steroids. I reviewed that these tumors almost always return. Mr. Otero wishes to proceed with simulation. Plan: We will attempt to schedule simulation for this week. Signed by: 10/10/2019 5:17:03 PM <<Signature on File>> Time spent with patient: CPT Code: CPT Code:
--- NOTE | 2019-10-10 19:17 | ONC FU_ITS ---
Dr. Hoffman Patient Follow-Up Note Patient: Mauro Otero Unit #: [id number]: 1945 Dicatated By: Murray Hoffman M.D.Date of Visit:Oct 10, 2019 Onc Med Follow-up/Prog Note Chief Complaint: Lymphoma/glioblastoma multiforme. History of Present Illness: This is a 74-year-old man with diffuse large B-cell lymphoma, by clinical evaluation at least stage III and IPI at least 3. He has now been found to have glioblastoma multiforme involving the left frontal lobe of the brain. He has a known history of abdominal aortic aneurysm for which he underwent abdominal aortic aneurysm repair using bifurcation graft in 2016. On his surveillance CT angiogram in April 2019 he was incidentally noted to have left periaortic lymphadenopathy. He then underwent CT directed needle biopsy of the left periaortic lymph node on 06/05/2019. Pathology was consistent with diffuse large B-cell lymphoma. The tumor cells were noted to be positive for CD45, CD20, CD10, CD23, BCL-2, and BCL-6. They were negative for CD3, CD5, CD21, CD30, and cyclin D1. The staining pattern by IHC was found to be consistent with diffuse large B-cell lymphoma, germinal center type. I had seen him initially on 06/18/2019. Staging PET/CT on 06/23/2019 showed a 1.9 x 1.3 cm left upper lobe pulmonary nodule with SUV 23.8, consistent with extranodal disease. Also noted were FDG positive lymph nodes in the posterior mediastinum and left hilar region with SUVs up to 9.4. Bilateral retrocrural lymph nodes were also FDG positive. A complex retroperitoneal mass was noted to envelop the aortic aneurysm, roughly measuring 12.9 x 9.9 cm with SUV 34.4. There were positive mesenteric lymph nodes, consistent with lymphoma. His baseline echocardiogram showed normal left ventricular systolic function with ejection fraction estimated at 65%. With those findings and with relatively good performance status, he was recommended to undergo treatment with R-CHOP chemotherapy. He began cycle 1 of R-CHOP chemotherapy on 06/28/2019. He tolerated the treatment with acceptable toxicity. He was then able to continue with cycle 2 on 07/19/2019 and with cycle 3 on 08/09/2019. Restaging PET/CT on 09/01/2019 showed residual abdominal mass encasing the aorta measuring 8.6 x 8.7 cm but with only minimal FDG activity. Mediastinal lymph nodes were noted to be subcentimeter in size and FDG negative. Retrocrural and lymph nodes were also subcentimeter in size and FDG negative. The left upper lobe pulmonary nodule was noted to measure 1.0 cm and it was no longer clearly solid. It was entirely FDG negative. Overall, the findings were consistent with a near complete response to therapy (Deauville Criteria 2). At that point he had reported increased memory loss and cognitive dysfunction, which I had assumed that it was chemotherapy related. I had encouraged him, though, to complete a least 1 more cycle of treatment, and he then continued with cycle 4 of R-CHOP on 09/05/2019. His cognitive function continued to worsen fairly dramatically. He then had evaluation with head MRI on 09/20/2019. It showed a large heterogeneously enhancing left frontal mass measuring 7.1 x 3.3 x 5.5 cm. There was a large amount of surrounding edema and there was associated left to right midline shift measuring 1.7 cm. Enhancement was noted to extend to the ventricular surface and cortical surface, suspicious for leptomeningeal spread of disease. There was effacement of the left lateral ventricle and partial effacement of the right lateral ventricle. He was transferred to [facility] for admission and on 09/24/2019 he underwent left frontal craniotomy with resection of the tumor. Pathology was consistent with glioblastoma multiforme. He tolerated the surgery well. He subsequently was transferred to the [facility] rehab facility in [place], and he is just now returning home today. His other medical illnesses, in addition to the abdominal aortic aneurysm, include hypertension, hyperlipidemia, hypothyroidism, and degenerative arthritis. He is a non-smoker. He has being seen today for radiation oncology consultation by Dr. Lewis, as he has been advised to have postoperative chemoradiation. He does appear to be recovering very well from his surgery. Medications: ALPRAZolam 1 Tablet (of 0.25 mg) Oral t.i.d. PRN, amLODIPine Besylate 1 Tablet (of 5 mg) Oral daily, CeleXA 1 Tablet (of 20 mg) Oral daily, Levothyroxine Sodium 1 Tablet (of 50 mcg) Oral daily, LORazepam 0.5 - 1 Tablet (of 1 mg) Oral t.i.d. PRN, Prochlorperazine Maleate 1 Tablet (of 10 mg) Oral q 4 hours PRN, Simvastatin 1 Tablet (of 40 mg) Oral daily Allergies: No Known Allergies. Vital Signs: Performed on Oct 10, 2019 16:52 Height - 71.00 in Weight - 191.6 lbs Temperature - 97.4 F Pulse - 84 Respiration - 18 BP - 112/70 mm(hg) O2 Sat - 96 % Pain - 0 Performed on Oct 10, 2019 16:52 BMI - 26.723 kg/m2 (HIGH) Impression: 1. Patient with diffuse large B-cell lymphoma, germinal center subtype, presenting with CT evidence of left periaortic lymphadenopathy. By clinical evaluation his disease was at least stage III with IPI score 3. He underwent CT-directed needle biopsy of a left periaortic lymph node on 06/05/2019. 2. There was also PET/CT evidence of FDG avid left upper lobe pulmonary nodule, possibly indicative of extranodal lymphoma (stage IV) versus other primary malignancy. 3. He underwent treatment with 4 cycles of R-CHOP chemotherapy from 06/28/2019 thru 09/05/2019. He had evidence of very good response by restaging PET/CT after 2 cycles. 4. He had worsening memory loss and cognitive dysfunction following his third and fourth cycles of chemotherapy. He was then found by brain MRI on 09/20/2019 to have a large left frontal lobe brain mass. 5. He underwent craniotomy/excision of the brain mass on 09/24/2019 with pathology consistent with glioblastoma multiforme. His other medical illnesses include: 6. Hypertension. 7. Hyperlipidemia. 8. Hypothyroidism. 9. Degenerative arthritis. 10. He underwent abdominal aortic aneurysm repair with bifurcation graft in 2015. Plan: Patient has been advised to undergo postoperative radiation concurrently with temozolomide chemotherapy. I reviewed anticipated side effects with the chemotherapy which may include nausea, fatigue, alopecia, and low blood counts, among others. The temozolomide will be administered at a standard dosage of 75 mg/m??? daily during radiation followed by temozolomide at 150 to 200 mg/m??? days 1 through 5 every 4 weeks for 6 cycles. Signed By: Murray Hoffman M.D. <<Signature on File>>
== END 2019-10-16 23:59 | disposition home or self-care (01) ==
LOC: ONCMED 06:08
PROVIDERS: Family Provider Registered Nurse; PCP Registered Nurse; Visit Provider Internal Medicine Medical Oncology
DX: C71.1 Malignant neoplasm of frontal lobe (principal); C83.33 Diffuse large B-cell lymphoma, intra-abdominal lymph nodes; I10 Essential (primary) hypertension; E78.5 Hyperlipidemia, unspecified; E03.9 Hypothyroidism, unspecified; M19.90 Unspecified osteoarthritis, unspecified site; Z86.79 Personal history of other diseases of the circulatory system
CPT/HCPCS: 70553; 80053; 85025; 96360; 99204; 99214; A9579; J7030

== ENCOUNTER 2019-09-20 11:08 | Emergency (ER) | payer MEDICARE, OTHER, SELFPAY ==
[2019-09-20 11:09] VITALS: BP 106/63; PULSE 71; RESP 16; TEMP 36.3; O2SAT 98; BMI 27.8
[2019-09-20 11:13] VITALS: BP 106/63; PULSE 65; RESP 17; O2SAT 98
--- NOTE | 2019-09-20 11:23 | ED_ITS ---
Entered by Roshni Reid, acting as scribe for Rick Arreola DO HPI - General Adult General: Chief complaint: General Medical Stated complaint: brain mass Time Seen by Provider: 09/20/19 11:22 Source: patient and family Mode of arrival: ambulatory Limitations: no limitations History of Present Illness: HPI narrative: 74 yo male presents with abnormal MRI. pt was seen yesterday for a MRI of the brain by Dr. Hoffman. pt was seen today and sent to the ED by Dr. Hoffman for abnormal findings with brain mets with midline shift. pt has lymphoma cancer. MD complaint: abnormal MRI Onset (ago): day(s) (yesterday) Location: head Radiation: non-radiation Severity: mild Pain Consistency: constant Relieving factors: none Exacerbating factors: none Associated symptoms: Reports headache(s); Deny chest pain, dyspnea, malaise, nausea, rash or vomiting Treatments prior to arrival: other (seen Dr. Hoffman sent to ED) Review of Systems General: Reports: 10 or more systems reviewed and unremarkable except in HPI and below Const: Denies: fever, chills, body aches, change in appetite, fatigue or malaise ENMT: Denies: throat pain, ear pain, nasal discharge or nasal congestion Card: Denies: chest pain, edema, shortness of breath on exertion or shortness of breath when lying down Resp: Denies: shortness of breath, productive cough or non-productive cough GI: Denies: abdominal pain, nausea, vomiting, vomiting blood, coffee grounds in vomit, diarrhea, constipation, bloating, blood in stool or black tarry stool : Denies: flank pain, painful urination, urinary frequency or urinary urgency Skin/Breast: Denies: rash or itching Neuro: Reports: headache PFS ED PFSH: Social History Smoking and tobacco status: former smoker Physical Exam Const: COMMON NORMALS: no apparent distress GENERAL APPEARANCE: cooperative and comfortable ORIENTATION/CONSCIOUSNESS: Yes awake, Yes oriented to person, Yes oriented to place and Yes oriented to time HENMT: COMMON NORMALS: normocephalic, head/scalp atraumatic, hearing grossly normal bilaterally, external ears normal, EAC's normal, TM's normal bilaterally, nasal mucous membranes and turbinates normal, moist oral mucous membranes and oropharynx normal HEAD & SCALP: normocephalic and atraumatic NOSE: nasal mucous membranes and turbinates normal EXTERNAL EAR: Yes external ears normal EXTERNAL AUDITORY CANAL: EAC's normal TYMPANIC MEMBRANE: TM's normal bilaterally Eye: COMMON NORMALS: PERRL, EOMs intact bilaterally, conjunctivae normal and no scleral icterus CONJUNCTIVA: Yes conjunctivae normal PUPIL: Yes PERRL Neck/C-Spine: COMMON NORMALS: full ROM, no lymphadenopathy, supple and no JVD Lymph: LYMPHATIC: no lymphadenopathy noted and no lymphedema noted Resp: COMMON NORMALS: normal respiratory effort, no retractions, no use of accessory muscles and clear to auscultation bilaterally AUSCULTATION: clear to auscultation bilaterally Cardio: COMMON NORMALS: no JVD, regular rate, regular rhythm and no murmurs RATE: regular rate RHYTHM: regular rhythm GI: COMMON NORMALS: soft to palpation and no hepatosplenomegaly AUSCULTATION: Yes normoactive bowel sounds PALPATION: Yes soft, No tender, No guarding and Yes no hepatosplenomegaly Extremity: COMMON NORMALS: normal to inspection, normal capillary refill, no clubbing, cyanosis or edema, no calf tenderness and no pedal edema Neuro: SENSORIUM/ORIENTATION: Yes oriented to person, Yes oriented to place and Yes oriented to time Skin: COMMON NORMALS: no rashes or lesions noted GENERAL SKIN EXAM: no rashes or lesions noted Course ED course: Patient is not having any focal neurologic deficits family reports is not having any personality changes. When he was given 10 of Decadron put him on some maintenance IV fluids and will transfer him to [facility] talk to the neurosurgeon they prefer to have him sent to ER to ER he will be transferred by ambulance. No further labs were done as they were done earlier today through Dr. Hoffman's office. Vital Signs: Vital signs: Vital Signs Temperature 97.4 F L 09/20/19 11:09 Pulse Rate 64 09/20/19 12:53 Respiratory Rate 17 09/20/19 12:53 Blood Pressure 121/68 09/20/19 12:53 Pulse Oximetry 97 09/20/19 12:53 Discharge Plan Discharge Patient Disposition: Xfer Short-Term Hosp Clinical Impression: Lymphoma, Brain metastases Referrals: Lisa Payne [Primary Care Provider] - Interventions: ED Discharge Assessment Last Done: 09/20/19 12:53 Discharge Date/Time: 09/20/19 13:35 Coding Level of Care Code ED Stamp Classifier for Chg Fwd Exam Comprehensive The documentation recorded by the Franklin chou Bridget Annette, accurately reflects the service I personally performed and the decisions made by Elba godinez Curtis L, DO Sep 20, 2019 11:08
[2019-09-20 11:38] VITALS: BP 106/63; PULSE 71; RESP 18; O2SAT 98
[2019-09-20 12:01] VITALS: BP 106/63; PULSE 67; RESP 17; O2SAT 96
[2019-09-20 12:41] VITALS: BP 121/68; PULSE 64; RESP 17; O2SAT 97
[2019-09-20] MEDS: dexamethasone 10 mg/mL INJ IVP (12:48)
[2019-09-20 12:53] VITALS: BP 121/68; PULSE 64; RESP 17; O2SAT 97
[2019-09-20] MEDS: sodium chlor 0.9% + KCl 20 mEq 20 MEQ/1,000 ML BAG 100 MEQ IV (13:16)
== END 2019-09-20 13:35 | disposition short-term general hospital (02) ==
PROVIDERS: Emergency Provider Family Medicine; Family Provider Registered Nurse; PCP Registered Nurse
DX: C85.90 Non-Hodgkin lymphoma, unspecified, unspecified site (principal); C79.31 Secondary malignant neoplasm of brain; Z87.891 Personal history of nicotine dependence; C71.1 Malignant neoplasm of frontal lobe; C83.33 Diffuse large B-cell lymphoma, intra-abdominal lymph nodes; E78.5 Hyperlipidemia, unspecified; E03.9 Hypothyroidism, unspecified; M19.90 Unspecified osteoarthritis, unspecified site; Z86.79 Personal history of other diseases of the circulatory system
CPT/HCPCS: 12345; 70553; 80053; 85025; 96360; 96365; 96374; 96375; 99282; 99285; A9579; J1100; J7030

== ENCOUNTER 2019-11-15 06:49 | Outpatient (RCR) | payer MEDICARE, OTHER, SELFPAY ==
--- NOTE | 2019-10-22 | CT_ITS ---
Radiation Therapy Planning CT images; total exam DLP: 730.27 mGy-cm MTDD
[2019-11-07 09:59] LABS: Basophils % 0.1 %; Eosinophils % 0.2 %; Hematocrit 41.3 % (42.0-52.0); Hemoglobin 13.3 g/dL (11.7-16.6); Lymphocytes # 0.5 10^3/uL (0.8-4.8); Lymphocytes % 6.4 %; Mean Corpuscular HGB Conc 32.2 g/dL (30.0-36.0); Mean Corpuscular Hemoglobin 32.2 pg (28.0-34.0); Mean Platelet Volume 8.7 fL (7.4-10.4); Monocytes # 0.3 10^3/uL (0.2-0.9); Neutrophils # 7.3 10^3/uL (1.8-7.7); Neutrophils % 88.1 %; Nucleated Red Blood Cells % 0 %; Platelet Count 112 10^3/cmm (130-400); Red Blood Count 4.13 10^6/uL (4.1-5.3); Red Cell Distribution Width 14.7 % (12.1-15.1); White Blood Count 8.3 10^3/uL (4.0-10.0)
[2019-11-07 10:18] LABS: Alanine Aminotransferase 19 U/L (0-41); Albumin Level 4.1 g/dL (3.5-5.2); Alkaline Phosphatase 68 IU/L (40-130); Anion Gap 15.1 (5-19); Aspartate Amino Transferase 18 U/L (0-40); Blood Urea Nitrogen 15 mg/dL (8-23); Calcium 9.4 mg/dL (8.5-10.5); Carbon Dioxide 27 mmol/L (22-29); Chloride 102 mmol/L (98-107); Glucose 64 mg/dL (65-115); Osmolality Calculated 284 mOsm/kg (285-295); Potassium 4.1 mmol/L (3.5-5.1); Sodium 140 mmol/L (136-145); Total Bilirubin 0.4 mg/dL (0.15-1.2); Total Protein 7.1 g/dL (6.6-8.7)
--- NOTE | 2019-11-07 13:57 | ONCRAD TMN_ITS ---
Radiation Oncology Weekly Treatment Management Patient: Mauro Otero MR#: [id number] : 1945> Age: 74> Sex: Male Dictated by: Shoaib Krishnamurthy Date of Service: 11/07/2019 Referring Physician(s) : Murray Hoffman M.D. 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 ID: [id number], Energy: 6X, Dose/Fx (cGy): 200, #Fx: , Dose Correction (cGy): 0, Total Dose (cGy): 1,200, Start Date: 10/31/2019, Elapsed Days: 7 Current Complaints/Interval History: He has irregular sleeping habits. Sleeps 9 pm to 1 am and then naps during the day. Prior trial of temazepam was unsuccessful. Tolerating Temodar well. NON,V, F,or C. No BAUER. Eating well. Modest activity at home. Currently on no steroid treatment. PE modest scalp erythema and tanning Constitutional Complains of mild fatigue. Denies lack of appetite, fever, night sweats and change in weight. Eyes Denies blurred vision and double vision. Integumentary Has no redness to the scalp Gastrointestinal Denies nausea and vomiting. Neurologic Complains of insomnia characterized by waking frequently during the night. Denies dizziness, headaches and seizure. Current Medications: Acetaminophen, aLPRAZolam, aLPRAZolam, amLODIPine Besylate, celeXA, celeXA, cyclophosphamide, decadron, dexamethasone Sodium Phosphate, diphenhydrAMINE HCl, dOXOrubicin HCl, emend, hYDROcodone-Acetaminophen, levothyroxine Sodium, lORazepam, lORazepam, neulasta, ondansetron, palonosetron HCl, predniSONE, prochlorperazine Maleate, prochlorperazine Maleate, riTUXimab, senna-S, simvastatin, sodium Chloride, vinCRIStine Sulfate, zithromax Z-Ronn. Allergies: No Known Allergies Vital Signs: Performed on 11/07/2019 9:59 AM BMI - 27.002 kg/m2 (high), Height - 71.00 in, Weight - 193.6 lbs, Temperature - 97.6 f, Pulse - 71, Respiration - 20, O2 Sat - 98 %, Pain - 0 and BP - 110/ 69 mm(hg). Physical Exam: Appears stable, no skin erythema or desquamation. Performance Status: 2 - Ambulatory/capable of all self-care, unable to perform any work activities. Up and about more than 50% of waking hours. (ECOG) Lab: None pending in Radiation Oncology. Test performed on 09/20/2019 8:57 AM RBC - 3.53 10 6/ul (low), HGB - 10.8 g/dl (low), HCT - 33.5 % (low), MCV - 94.9 fl (high), RDW - 16.8 % (high) and Lymphocytes - 0.6 10 3/ul (low). Imaging: No new diagnostic imaging was performed since the last weekly treatment visit. All radiation therapy related imaging (including but not limited to kV, MV, and CBCT generated images) was reviewed. Appropriate changes, if any, were made to assure accurate target localization. Impression/Plan: Tolerating treatment well with expected side effects. Continue treatment as planned. Will not add additional medications as he is doing well with current odd sleep pattern. CPT: 54886 Signed by: Dr. Shoaib Krishnamurthy>11/07/2019 1:55:51 PM <<Signature on File>>
--- NOTE | 2019-11-10 10:38 | ONC FU_ITS ---
Dr. Hoffman Patient Follow-Up Note Patient: Mauro Otero Unit #: [id number]: 1945 Dicatated By: Murray Hoffman M.D.Date of Visit:Nov 08, 2019 Onc Med Follow-up/Prog Note Chief Complaint: Lymphoma/glioblastoma multiforme. History of Present Illness: This is a 74-year-old man with diffuse large B-cell lymphoma, by clinical evaluation at least stage III and IPI at least 3. He has now been found to have glioblastoma multiforme involving the left frontal lobe of the brain. He has a known history of abdominal aortic aneurysm for which he underwent abdominal aortic aneurysm repair using bifurcation graft in 2016. On his surveillance CT angiogram in April 2019 he was incidentally noted to have left periaortic lymphadenopathy. He then underwent CT directed needle biopsy of the left periaortic lymph node on 06/05/2019. Pathology was consistent with diffuse large B-cell lymphoma. The tumor cells were noted to be positive for CD45, CD20, CD10, CD23, BCL-2, and BCL-6. They were negative for CD3, CD5, CD21, CD30, and cyclin D1. The staining pattern by IHC was found to be consistent with diffuse large B-cell lymphoma, germinal center type. I had seen him initially on 06/18/2019. Staging PET/CT on 06/23/2019 showed a 1.9 x 1.3 cm left upper lobe pulmonary nodule with SUV 23.8, consistent with extranodal disease. Also noted were FDG positive lymph nodes in the posterior mediastinum and left hilar region with SUVs up to 9.4. Bilateral retrocrural lymph nodes were also FDG positive. A complex retroperitoneal mass was noted to envelop the aortic aneurysm, roughly measuring 12.9 x 9.9 cm with SUV 34.4. There were positive mesenteric lymph nodes, consistent with lymphoma. His baseline echocardiogram showed normal left ventricular systolic function with ejection fraction estimated at 65%. With those findings and with relatively good performance status, he was recommended to undergo treatment with R-CHOP chemotherapy. He began cycle 1 of R-CHOP chemotherapy on 06/28/2019. He tolerated the treatment with acceptable toxicity. He was then able to continue with cycle 2 on 07/19/2019 and with cycle 3 on 08/09/2019. Restaging PET/CT on 09/01/2019 showed residual abdominal mass encasing the aorta measuring 8.6 x 8.7 cm but with only minimal FDG activity. Mediastinal lymph nodes were noted to be subcentimeter in size and FDG negative. Retrocrural and lymph nodes were also subcentimeter in size and FDG negative. The left upper lobe pulmonary nodule was noted to measure 1.0 cm and it was no longer clearly solid. It was entirely FDG negative. Overall, the findings were consistent with a near complete response to therapy (Deauville Criteria 2). At that point he had reported increased memory loss and cognitive dysfunction, which I had assumed that it was chemotherapy related. I had encouraged him, though, to complete a least 1 more cycle of treatment, and he then continued with cycle 4 of R-CHOP on 09/05/2019. His cognitive function continued to worsen fairly dramatically. He then had evaluation with head MRI on 09/20/2019. It showed a large heterogeneously enhancing left frontal mass measuring 7.1 x 3.3 x 5.5 cm. There was a large amount of surrounding edema and there was associated left to right midline shift measuring 1.7 cm. Enhancement was noted to extend to the ventricular surface and cortical surface, suspicious for leptomeningeal spread of disease. There was effacement of the left lateral ventricle and partial effacement of the right lateral ventricle. He was transferred to [facility] for admission and on 09/24/2019 he underwent left frontal craniotomy with resection of the tumor. Pathology was consistent with glioblastoma multiforme. He tolerated the surgery well. He subsequently was transferred to the [facility] rehab facility in [place]. He returned home on 10/10/2019. He was then seen here for postoperative chemoradiation. His other medical illnesses, in addition to the abdominal aortic aneurysm, include hypertension, hyperlipidemia, hypothyroidism, and degenerative arthritis. He is a non-smoker. INTERIM HISTORY: He began radiation, concurrently with temozolomide chemotherapy on 10/31/2019. Prior to that, he had recurrence of HOUSEFELLOW symptoms after being tapered off dexamethasone, and I did have him restart it at 4 mg daily. He is seen for a scheduled visit. He has been feeling pretty good generally. Says he has good energy. He still has limited activity. He is able to do a little bit of light work at home. His ECOG score is 2. He has good appetite on the dexamethasone. He does not have fever or night sweats. He has had no mouth sores. He has no shortness of breath, cough, or chest pain. He has not been having any nausea. He is having some constipation. He has no complaints. He has no significant joint or bone pain. He does not complain of headache. He says his balance is okay, though he does have some difficulty walking. He has no numbness/paresthesia or other focal neurologic symptoms. His son indicates that he is still having problems with cognitive function. Medications: ALPRAZolam 1 Tablet (of 0.25 mg) Oral t.i.d. PRN, amLODIPine Besylate 1 Tablet (of 5 mg) Oral daily, Levothyroxine Sodium 1 Tablet (of 50 mcg) Oral daily, LORazepam 0.5 - 1 Tablet (of 1 mg) Oral t.i.d. PRN, Spearman-3 Fatty Acids 1 Capsule (of 1000 mg) Oral daily, Ondansetron 1 Tablet (of 8 mg) Tablet Dispersable Oral t.i.d. PRN, Prochlorperazine Maleate 1 Tablet (of 10 mg) Oral q 4 hours PRN, Senna 2 Capsule (of 8.6 mg) Oral b.i.d., Simvastatin 1 Tablet (of 40 mg) Oral daily, Temozolomide (5 mg) Capsule Oral Take as Directed, Vitamin D3 2 Tablet (of 1000 Units) Oral daily Allergies: No Known Allergies. Review of Systems: Constitutional - His energy is good. He does a little bit of light work around the house. His appetite is good and weight is stable. No fever, chills, hot flashes, or night sweats. ECOG score is 2, ENMT - No sinus congestion/drainage. No mouth sores. No sore throat or difficulty swallowing, Hematologic/Lymphatic - No abnormal bruising or bleeding, Respiratory - No shortness of breath. No cough. No pleuritic pain or hemoptysis, Cardiovascular - No angina pain. No palpitations, Gastrointestinal - No nausea or vomiting. No heartburn or acid reflux. No diarrhea. He is having constipation. He is currently taking Senna-S 1 tablet twice daily without complete relief. No blood in the stool or black stools, Genitourinary (M) - No dysuria or hematuria. No urinary frequency. No urgency or incontinence, Musculoskeletal - No joint or bone pain, Integumentary - No skin complications, Neurologic - No headache or dizziness. No numbness/paresthesias or other focal neurologic symptoms, Psychiatric - No anxiety or depression. He has some difficulty sleeping. Vital Signs: Performed on Nov 08, 2019 11:20 Height - 71.00 in Weight - 194.6 lbs (HIGH) BSA - 2.08 sq.m BMI - 27.14 Temperature - 97.3 F (LOW) Pulse - 62 /min Respiration - 22 /min BP - 127/71 mm(hg) O2 Sat - 98 % Pain - 0 Physical Examination: Constitutional - He appears somewhat weak generally, Eyes - Sclerae nonicteric. Conjunctivae clear, ENMT - No lesions noted in the oral cavity, Hematologic/Lymphatic - No cervical, clavicular, or axillary adenopathy, Respiratory - Lungs are clear with good air movement bilaterally, Cardiovascular - Heart rhythm is regular. There is no murmur, gallop, or rub noted, Abdomen - Soft. Liver and spleen are not enlarged. There is no abdominal mass or ascites noted and there is no inguinal adenopathy, Extremities - No edema, Neurologic - He still has some difficulty with balance/gait. He does not appear to have any focal neurologic deficit. Lab/Imaging: CBC shows hemoglobin 13.3 g, white blood cell count 8300, and platelet count 112,000. Comprehensive metabolic profile is unremarkable. Impression: 1. Patient with diffuse large B-cell lymphoma, germinal center subtype, presenting with CT evidence of left periaortic lymphadenopathy. By clinical evaluation his disease was at least stage III with IPI score 3. He underwent CT-directed needle biopsy of a left periaortic lymph node on 06/05/2019. 2. There was also PET/CT evidence of FDG avid left upper lobe pulmonary nodule, possibly indicative of extranodal lymphoma (stage IV) versus other primary malignancy. 3. He underwent treatment with 4 cycles of R-CHOP chemotherapy from 06/28/2019 thru 09/05/2019. He had evidence of very good response by restaging PET/CT after 2 cycles. 4. He had worsening memory loss and cognitive dysfunction following his third and fourth cycles of chemotherapy. He was then found by brain MRI on 09/20/2019 to have a large left frontal lobe brain mass. 5. He underwent craniotomy/excision of the brain mass on 09/24/2019 with pathology consistent with glioblastoma multiforme. His other medical illnesses include: 6. Hypertension. 7. Hyperlipidemia. 8. Hypothyroidism. 9. Degenerative arthritis. 10. He underwent abdominal aortic aneurysm repair with bifurcation graft in 2015. He had significant improvement in his neurologic symptoms following the surgery. On 10/31/2019 he began postoperative radiation concurrently with temozolomide chemotherapy. Thus far he has been tolerating the treatment extremely well. Plan: He continues radiation concurrennlty with temozolomide at 75 mg/m??? daily. I will recheck a blood count in 1 week and I will plan a follow-up visit in 2 weeks. In the meantime, he is to increase senna/docusate to 2 tablets twice daily. Signed By: Murray Hoffman M.D. <<Signature on File>>
--- NOTE | 2019-11-13 13:49 | ONCRAD TMN_ITS ---
Radiation Oncology Weekly Treatment Management Patient: Mauro Otero MR#: [id number] : 1945> Age: 74> Sex: Male Dictated by: Dr. Shoaib Krishnamurthy Date of Service: 11/13/2019 Referring Physician(s) : Murray Hoffman M.D. 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 ID: [id number], Energy: 6X, Dose/Fx (cGy): 200, #Fx: , Dose Correction (cGy): 0, Total Dose (cGy): 2,000, Start Date: 10/31/2019, Elapsed Days: 13 Current Complaints/Interval History: He had stool urgency here today and had some stool incontinence on way to toilet. No BAUER, N or v. Eating ok. Sleeping ok. He did well over the weekend. Living independently with his . Constitutional Complains of mild fatigue. Denies lack of appetite, fever and night sweats. Eyes Denies blurred vision and double vision. ENMT Denies ear pain and altered taste. Gastrointestinal Denies nausea and vomiting. Neurologic Denies disorientation, dizziness but will feel off balanced with walking at times., headaches, insomnia, motor weakness and sensory problems. Current Medications: Acetaminophen, aLPRAZolam, aLPRAZolam, amLODIPine Besylate, celeXA, cyclophosphamide, decadron, dexamethasone Sodium Phosphate, diphenhydrAMINE HCl, dOXOrubicin HCl, emend, hYDROcodone-Acetaminophen, levothyroxine Sodium, lORazepam, lORazepam, neulasta, omega-3 Fatty Acids, ondansetron, ondansetron, palonosetron HCl, predniSONE, prochlorperazine Maleate, prochlorperazine Maleate, riTUXimab, senna, senna-S, simvastatin, sodium Chloride, temozolomide, traZODone HCl, vinCRIStine Sulfate, vitamin D3, zithromax Z-Ronn. Allergies: No Known Allergies Vital Signs: Performed on 11/13/2019 9:49 AM BMI - 27.504 kg/m2 (high), Height - 71.00 in, Weight - 197.2 lbs, Temperature - 97.7 f, Pulse - 80, Respiration - 20, O2 Sat - 96 %, Pain - 6 and BP - 102/ 67 mm(hg). Physical Exam: Appears stable, no skin erythema or desquamation. Minimal scalp tanning and erythema. Chronically bald. Performance Status: 2 - Ambulatory/capable of all self-care, unable to perform any work activities. Up and about more than 50% of waking hours. (ECOG) Lab: None pending in Radiation Oncology. Test performed on 09/20/2019 8:57 AM RBC - 3.53 10 6/ul (low), HGB - 10.8 g/dl (low), HCT - 33.5 % (low), MCV - 94.9 fl (high), RDW - 16.8 % (high) and Lymphocytes - 0.6 10 3/ul (low). Imaging: No new diagnostic imaging was performed since the last weekly treatment visit. All radiation therapy related imaging (including but not limited to kV, MV, and CBCT generated images) was reviewed. Appropriate changes, if any, were made to assure accurate target localization. Impression/Plan: Tolerating treatment well with expected side effects. Continue treatment as planned. CPT: 86897 Signed by: Dr. Shoaib Krishnamurthy>11/13/2019 1:47:51 PM <<Signature on File>>
[2019-11-14 10:13] LABS: Basophils % 0.2 %; Eosinophils % 0.6 %; Hematocrit 35.3 % (42.0-52.0); Hemoglobin 11.4 g/dL (11.7-16.6); Lymphocytes # 0.4 10^3/uL (0.8-4.8); Lymphocytes % 8.2 %; Mean Corpuscular HGB Conc 32.3 g/dL (30.0-36.0); Mean Corpuscular Hemoglobin 32.1 pg (28.0-34.0); Mean Corpuscular Volume 99.4 fL (80-94); Monocytes # 0.2 10^3/uL (0.2-0.9); Monocytes % 3.9 %; Neutrophils # 4.1 10^3/uL (1.8-7.7); Neutrophils % 84.8 %; Nucleated Red Blood Cells % 0 %; Platelet Count 88 10^3/cmm (130-400); Red Blood Count 3.55 10^6/uL (4.1-5.3); Red Cell Distribution Width 14.5 % (12.1-15.1); White Blood Count 4.9 10^3/uL (4.0-10.0)
== END 2019-11-15 23:59 | disposition home or self-care (01) ==
LOC: ONCMED 06:49
PROVIDERS: Internal Medicine Medical Oncology; Nurse Practitioner; Absent Provider Radiology Radiation Oncology; Family Provider Registered Nurse; PCP Family Medicine; Visit Provider Radiology Radiation Oncology
DX: Z51.0 Encounter for antineoplastic radiation therapy (principal); C71.1 Malignant neoplasm of frontal lobe; C83.33 Diffuse large B-cell lymphoma, intra-abdominal lymph nodes; R15.2 Fecal urgency; K59.00 Constipation, unspecified; I10 Essential (primary) hypertension; E78.5 Hyperlipidemia, unspecified; E03.9 Hypothyroidism, unspecified; M19.90 Unspecified osteoarthritis, unspecified site; Z86.79 Personal history of other diseases of the circulatory system; Z79.899 Other long term (current) drug therapy
CPT/HCPCS: 36415; 77300; 77301; 77334; 77336; 77338; 77386; 77470; 80053; 85025; 99214

== ENCOUNTER 2019-12-06 06:46 | Outpatient (RCR) | payer MEDICARE, OTHER, SELFPAY ==
--- NOTE | 2019-11-21 10:22 | ONCRAD TMN_ITS ---
Radiation Oncology Weekly Treatment Management Patient: Mauro Otero MR#: [id number] : 1945> Age: 74> Sex: Male Dictated by: Dr. Shoaib Krishnamurthy Date of Service: 11/21/2019 Referring Physician(s) : Murray Hoffman M.D. 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 ID: [id number], Energy: 6X, Dose/Fx (cGy): 200, #Fx: , Dose Correction (cGy): 0, Total Dose (cGy): 3,200, Start Date: 10/31/2019, Elapsed Days: 21 Current Complaints/Interval History: Tolerating Temodar and radiation well. No BAUER, N., V. Eating well. Mild fatigue after treatment. Constitutional Complains of mild fatigue. Denies lack of appetite, fever, night sweats and change in weight. Eyes Denies blurred vision. ENMT Denies altered taste. Gastrointestinal Denies nausea and vomiting. Neurologic Complains of abnormal gait in which occasionally feels off balanced with walking. Denies dizziness, headaches and insomnia. Current Medications: Acetaminophen, aLPRAZolam, aLPRAZolam, amLODIPine Besylate, celeXA, cyclophosphamide, decadron, dexamethasone Sodium Phosphate, diphenhydrAMINE HCl, dOXOrubicin HCl, emend, hYDROcodone-Acetaminophen, levothyroxine Sodium, lORazepam, lORazepam, neulasta, omega-3 Fatty Acids, ondansetron, ondansetron, palonosetron HCl, predniSONE, prochlorperazine Maleate, prochlorperazine Maleate, riTUXimab, senna, senna-S, simvastatin, sodium Chloride, temozolomide, traZODone HCl, vinCRIStine Sulfate, vitamin D3, zithromax Z-Ronn. Allergies: No Known Allergies Vital Signs: Performed on 11/21/2019 9:58 AM BMI - 27.197 kg/m2 (high), Height - 71.00 in, Weight - 195.0 lbs, Temperature - 97.4 f, Pulse - 58, Respiration - 18, O2 Sat - 99 %, Pain - 0 and BP - 120/ 76 mm(hg). Physical Exam: Erythema and tanning of left frontal scalp. Performance Status: 1 - No physically strenuous activity, but ambulatory and able to carry out light or sedentary work (e.g. office work, light house work). (ECOG) Lab: None pending in Radiation Oncology. Test performed on 09/20/2019 8:57 AM RBC - 3.53 10 6/ul (low), HGB - 10.8 g/dl (low), HCT - 33.5 % (low), MCV - 94.9 fl (high), RDW - 16.8 % (high) and Lymphocytes - 0.6 10 3/ul (low). Imaging: No new diagnostic imaging was performed since the last weekly treatment visit. All radiation therapy related imaging (including but not limited to kV, MV, and CBCT generated images) was reviewed. Appropriate changes, if any, were made to assure accurate target localization. Impression/Plan: Tolerating treatment well with expected side effects. Continue treatment as planned. CPT: 35247 Signed by: Dr. Shoaib Krishnamurthy>11/21/2019 10:20:23 AM <<Signature on File>>
[2019-11-21 11:26] LABS: Alanine Aminotransferase 19 U/L (0-41); Albumin Level 4.1 g/dL (3.5-5.2); Alkaline Phosphatase 54 IU/L (40-130); Anion Gap 13.5 (5-19); Aspartate Amino Transferase 19 U/L (0-40); Blood Urea Nitrogen 20 mg/dL (8-23); Calcium 9.2 mg/dL (8.5-10.5); Carbon Dioxide 27 mmol/L (22-29); Chloride 103 mmol/L (98-107); Globulin 2.8 g/dL (1.3-4.6); Glucose 124 mg/dL (65-115); Osmolality Calculated 286 mOsm/kg (285-295); Potassium 4.5 mmol/L (3.5-5.1); Sodium 139 mmol/L (136-145); Total Bilirubin 0.4 mg/dL (0.15-1.2); Total Protein 6.9 g/dL (6.6-8.7)
[2019-11-21 11:45] LABS: Basophils % 0.2 %; Hematocrit 38.3 % (42.0-52.0); Hemoglobin 12.5 g/dL (11.7-16.6); Lymphocytes # 0.6 10^3/uL (0.8-4.8); Lymphocytes % 10.6 %; Mean Corpuscular HGB Conc 32.6 g/dL (30.0-36.0); Mean Corpuscular Hemoglobin 32.5 pg (28.0-34.0); Mean Corpuscular Volume 99.5 fL (80-94); Monocytes # 0.2 10^3/uL (0.2-0.9); Monocytes % 3.4 %; Neutrophils # 4.5 10^3/uL (1.8-7.7); Neutrophils % 84.5 %; Nucleated Red Blood Cells % 0 %; Platelet Count 128 10^3/cmm (130-400); Red Blood Count 3.85 10^6/uL (4.1-5.3); Red Cell Distribution Width 14.4 % (12.1-15.1); White Blood Count 5.3 10^3/uL (4.0-10.0)
--- NOTE | 2019-11-25 12:56 | ONC FU_ITS ---
Dr. Hoffman Patient Follow-Up Note Patient: Mauro Otero Unit #: [id number]: 1945 Dicatated By: Murray Hoffman M.D.Date of Visit:November 22, 2019 Onc Med Follow-up/Prog Note Chief Complaint: Lymphoma/glioblastoma multiforme. History of Present Illness: This is a 74-year-old man with diffuse large B-cell lymphoma, by clinical evaluation at least stage III and IPI at least 3. He has now been found to have glioblastoma multiforme involving the left frontal lobe of the brain. He has a known history of abdominal aortic aneurysm for which he underwent abdominal aortic aneurysm repair using bifurcation graft in 2016. On his surveillance CT angiogram in April 2019 he was incidentally noted to have left periaortic lymphadenopathy. He then underwent CT directed needle biopsy of the left periaortic lymph node on 06/05/2019. Pathology was consistent with diffuse large B-cell lymphoma. The tumor cells were noted to be positive for CD45, CD20, CD10, CD23, BCL-2, and BCL-6. They were negative for CD3, CD5, CD21, CD30, and cyclin D1. The staining pattern by IHC was found to be consistent with diffuse large B-cell lymphoma, germinal center type. I had seen him initially on 06/18/2019. Staging PET/CT on 06/23/2019 showed a 1.9 x 1.3 cm left upper lobe pulmonary nodule with SUV 23.8, consistent with extranodal disease. Also noted were FDG positive lymph nodes in the posterior mediastinum and left hilar region with SUVs up to 9.4. Bilateral retrocrural lymph nodes were also FDG positive. A complex retroperitoneal mass was noted to envelop the aortic aneurysm, roughly measuring 12.9 x 9.9 cm with SUV 34.4. There were positive mesenteric lymph nodes, consistent with lymphoma. His baseline echocardiogram showed normal left ventricular systolic function with ejection fraction estimated at 65%. With those findings and with relatively good performance status, he was recommended to undergo treatment with R-CHOP chemotherapy. He began cycle 1 of R-CHOP chemotherapy on 06/28/2019. He tolerated the treatment with acceptable toxicity. He was then able to continue with cycle 2 on 07/19/2019 and with cycle 3 on 08/09/2019. Restaging PET/CT on 09/01/2019 showed residual abdominal mass encasing the aorta measuring 8.6 x 8.7 cm but with only minimal FDG activity. Mediastinal lymph nodes were noted to be subcentimeter in size and FDG negative. Retrocrural and lymph nodes were also subcentimeter in size and FDG negative. The left upper lobe pulmonary nodule was noted to measure 1.0 cm and it was no longer clearly solid. It was entirely FDG negative. Overall, the findings were consistent with a near complete response to therapy (Deauville Criteria 2). At that point he had reported increased memory loss and cognitive dysfunction, which I had assumed that it was chemotherapy related. I had encouraged him, though, to complete a least 1 more cycle of treatment, and he then continued with cycle 4 of R-CHOP on 09/05/2019. His cognitive function continued to worsen fairly dramatically. He then had evaluation with head MRI on 09/20/2019. It showed a large heterogeneously enhancing left frontal mass measuring 7.1 x 3.3 x 5.5 cm. There was a large amount of surrounding edema and there was associated left to right midline shift measuring 1.7 cm. Enhancement was noted to extend to the ventricular surface and cortical surface, suspicious for leptomeningeal spread of disease. There was effacement of the left lateral ventricle and partial effacement of the right lateral ventricle. He was transferred to [facility] for admission and on 09/24/2019 he underwent left frontal craniotomy with resection of the tumor. Pathology was consistent with glioblastoma multiforme. He tolerated the surgery well. He subsequently was transferred to the [facility] rehab facility in [place]. He returned home on 10/10/2019. He was then seen here for postoperative chemoradiation. His other medical illnesses, in addition to the abdominal aortic aneurysm, include hypertension, hyperlipidemia, hypothyroidism, and degenerative arthritis. He is a non-smoker. INTERIM HISTORY: He began radiation, concurrently with temozolomide chemotherapy on 10/31/2019. Prior to that, he had recurrence of [employer] M113 symptoms after being tapered off dexamethasone, and I did have him restart it at 4 mg daily. He is seen for a scheduled visit. He has been feeling good generally. He has had no nausea with the temozolomide. He says he has missed a couple of doses. He has pretty good energy, and he is able to do light work now. ECOG score is 1. He has good appetite. He has no fever or night sweats. He has had no mouth sores. He has no shortness of breath, cough, or chest pain. He currently has no GI/ complaints. His constipation is being managed adequately. He has no significant joint or bone pain. He does not complain of headache. He still has some balance issues. He has no focal neurologic symptoms. Medications: ALPRAZolam 1 Tablet (of 0.25 mg) Oral t.i.d. PRN, amLODIPine Besylate 1 Tablet (of 5 mg) Oral daily, Levothyroxine Sodium 1 Tablet (of 50 mcg) Oral daily, LORazepam 0.5 - 1 Tablet (of 1 mg) Oral t.i.d. PRN, [place]-3 Fatty Acids 1 Capsule (of 1000 mg) Oral daily, Ondansetron 1 Tablet (of 8 mg) Tablet Dispersable Oral t.i.d. PRN, Prochlorperazine Maleate 1 Tablet (of 10 mg) Oral q 4 hours PRN, Senna 2 Capsule (of 8.6 mg) Oral b.i.d., Simvastatin 1 Tablet (of 40 mg) Oral daily, Temozolomide (5 mg) Capsule Oral Take as Directed, traZODone HCl 1 - 2 Tablet (of 50 mg) Oral at bedtime, Vitamin D3 2 Tablet (of 1000 Units) Oral daily Allergies: No Known Allergies. Review of Systems: Constitutional - He is feeling pretty good. His energy is good. He is able to do light work. His appetite is good and weight is stable. No fever, chills, hot flashes, or night sweats. ECOG score is 1, ENMT - No sinus congestion/drainage. No mouth sores. No sore throat or difficulty swallowing, Hematologic/Lymphatic - No abnormal bruising or bleeding, Respiratory - No shortness of breath. No cough. No pleuritic pain or hemoptysis, Cardiovascular - No angina pain. No palpitations, Gastrointestinal - No nausea or vomiting. No heartburn or acid reflux. He is taking Senna-S for constipation, which is working. No blood in the stool or black stools, Genitourinary (M) - No dysuria or hematuria. No urinary frequency. No urgency or incontinence, Musculoskeletal - No joint or bone pain, Integumentary - No skin complications, Neurologic - No headache or dizziness. He feels a little off balance. No numbness/paresthesias or other focal neurologic symptoms, Psychiatric - No anxiety or depression. No insomnia. Vital Signs: Performed on November 22, 2019 10:00 Height - 71.00 in Weight - 194.8 lbs (LOW) BSA - 2.09 sq.m BMI - 27.17 Temperature - 97.8 F (LOW) Pulse - 57 /min (LOW) Respiration - 18 /min BP - 104/66 mm(hg) O2 Sat - 99 % Pain - 0 Physical Examination: Constitutional - He looks pretty good generally, Eyes - Sclerae nonicteric. Conjunctivae clear, ENMT - No lesions noted in the oral cavity, Hematologic/Lymphatic - No cervical, clavicular, or axillary adenopathy, Respiratory - Lungs are clear with good air movement bilaterally, Cardiovascular - Heart rhythm is regular. There is no murmur, gallop, or rub noted, Abdomen - Soft. Liver and spleen are not enlarged. There is no abdominal mass or ascites noted and there is no inguinal adenopathy, Extremities - No edema, Neurologic - He still has some difficulty with postural instability and gait. He does not appear to have any focal neurologic deficit. Lab/Imaging: Test performed on November 21, 2019 10:35 Sodium 139 mmol/L Potassium 4.5 mmol/L Chloride 103 mmol/L CO2 27 mmol/L Anion Gap 13.5 BUN 20 mg/dL Creatinine 0.8 mg/dL Cr Clearance (Est) 101.4000 mL/min Glucose 124 mg/dL Calcium 9.2 mg/dL Protein, Total 6.9 g/dL Albumin 4.1 g/dL Globulin 2.8 g/dL Bilirubin, Total 0.4 mg/dL ALT (SGPT) 19 U/L AST (SGOT) 19 U/L Alkaline Phosphatase 54 IU/L WBC 5.3 10 3/uL RBC 3.85 10 6/uL HGB 12.5 g/dL HCT 38.3 % MCV 99.5 fL MCH 32.5 pg MCHC 32.6 g/dL RDW 14.4 % Platelet Count 128 10 3/cmm MPV 9.0 fL Neutrophils 4.5 10 3/uL Lymphocytes 0.6 10 3/uL Monocytes 0.2 10 3/uL Eosinophils 0.0 10 3/uL Basophils 0.0 10 3/uL Neutrophil % 84.5 % Lymphocyte % 10.6 % Monocyte % 3.4 % Eosinophil % 0.0 % Basophils % 0.2 % Impression: 1. Patient with diffuse large B-cell lymphoma, germinal center subtype, presenting with CT evidence of left periaortic lymphadenopathy. By clinical evaluation his disease was at least stage III with IPI score 3. He underwent CT-directed needle biopsy of a left periaortic lymph node on 06/05/2019. 2. There was also PET/CT evidence of FDG avid left upper lobe pulmonary nodule, possibly indicative of extranodal lymphoma (stage IV) versus other primary malignancy. 3. He underwent treatment with 4 cycles of R-CHOP chemotherapy from 06/28/2019 thru 09/05/2019. He had evidence of very good response by restaging PET/CT after 2 cycles. 4. He had worsening memory loss and cognitive dysfunction following his third and fourth cycles of chemotherapy. He was then found by brain MRI on 09/20/2019 to have a large left frontal lobe brain mass. 5. He underwent craniotomy/excision of the brain mass on 09/24/2019 with pathology consistent with glioblastoma multiforme. His other medical illnesses include: 6. Hypertension. 7. Hyperlipidemia. 8. Hypothyroidism. 9. Degenerative arthritis. 10. He underwent abdominal aortic aneurysm repair with bifurcation graft in 2016. He had significant improvement in his neurologic symptoms following the surgery. On 10/31/2019 he began postoperative radiation concurrently with temozolomide chemotherapy. Thus far he has been tolerating the treatment extremely well. Plan: He continues radiation concurrently with temozolomide at 75 mg/m??? daily. His blood counts are being monitored weekly. He will be scheduled for a follow-up visit in 1 week. In the meantime, I will have him stop amlodipine, as his blood pressure is relatively low now. I also will have him try reducing the dexamethasone to 2 mg daily. Signed By: Murray Hoffman M.D. <<Signature on File>>
--- NOTE | 2019-11-27 13:44 | ONCRAD TMN_ITS ---
Radiation Oncology Weekly Treatment Management Patient: Mauro Otero MR#: [id number] : 1945> Age: 74> Sex: Male Dictated by: Dr. Shoaib Krishnamurthy Date of Service: 11/27/2019 Referring Physician(s) : Murray Hoffman M.D. 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 ID: [id number], Energy: 6X, Dose/Fx (cGy): 200, #Fx: 20 / 20, Dose Correction (cGy): 0, Total Dose (cGy): 4,000, Start Date: 10/31/2019, End Date: 11/27/2019, Elapsed Days: 27 Current Complaints/Interval History: Currently has no headache nausea or vomiting. He feels well. He did drive by himself to [place] over the weekend which he felt was a mistake as he was drifting and he plans not to drive again. He is eating well. Constitutional Complains of mild fatigue. Denies lack of appetite, fever, night sweats and change in weight. Eyes Denies blurred vision and double vision. Gastrointestinal Denies heartburn / dyspepsia, nausea and vomiting. Neurologic Complains of disorientation to time and place. Complains of abnormal gait in which he feels off balanced at times with walking. Denies dizziness and headaches. Current Medications: Acetaminophen, aLPRAZolam, aLPRAZolam, amLODIPine Besylate, celeXA, cyclophosphamide, decadron, dexamethasone Sodium Phosphate, diphenhydrAMINE HCl, dOXOrubicin HCl, emend, hYDROcodone-Acetaminophen, levothyroxine Sodium, lORazepam, lORazepam, neulasta, omega-3 Fatty Acids, ondansetron, ondansetron, palonosetron HCl, predniSONE, prochlorperazine Maleate, prochlorperazine Maleate, riTUXimab, senna, senna-S, simvastatin, sodium Chloride, temozolomide, traZODone HCl, vinCRIStine Sulfate, vitamin D3, zithromax Z-Ronn. Allergies: No Known Allergies Vital Signs: Performed on 11/27/2019 9:48 AM BMI - 27.365 kg/m2 (high), Height - 71.00 in, Weight - 196.2 lbs, Temperature - 98.0 f, Pulse - 76, Respiration - 20, O2 Sat - 97 %, Pain - 0 and BP - 113/ 69 mm(hg). Physical Exam: He had generalized scalp erythema and modest tanning no desquamation seen. Oral cavity was clear no oral candidiasis Performance Status: 1 - No physically strenuous activity, but ambulatory and able to carry out light or sedentary work (e.g. office work, light house work). (ECOG) Lab: None pending in Radiation Oncology. Test performed on 11/21/2019 10:35 AM RBC - 3.85 10 6/ul (low), HCT - 38.3 % (low), MCV - 99.5 fl (high), Platelet Count - 128 10 3/cmm (low), Lymphocytes - 0.6 10 3/ul (low) and Glucose - 124 mg/dl (high). Imaging: No new diagnostic imaging was performed since the last weekly treatment visit. All radiation therapy related imaging (including but not limited to kV, MV, and CBCT generated images) was reviewed. Appropriate changes, if any, were made to assure accurate target localization. Impression/Plan: Tolerating treatment well with expected side effects. Continue treatment as planned. We cautioned him to stop driving at this time. CPT: 72733 Signed by: Dr. Shoaib Krishnamurthy>11/27/2019 12:50:25 PM <<Signature on File>>
[2019-11-29 11:19] LABS: Basophils % 0.3 %; Eosinophils # 0.1 10^3/uL (0.0-0.8); Eosinophils % 1.3 %; Hematocrit 38.4 % (42.0-52.0); Hemoglobin 12.7 g/dL (11.7-16.6); Lymphocytes # 0.4 10^3/uL (0.8-4.8); Lymphocytes % 10.8 %; Mean Corpuscular HGB Conc 33.1 g/dL (30.0-36.0); Mean Corpuscular Hemoglobin 32.7 pg (28.0-34.0); Mean Platelet Volume 8.9 fL (7.4-10.4); Monocytes # 0.2 10^3/uL (0.2-0.9); Monocytes % 5.6 %; Neutrophils # 2.9 10^3/uL (1.8-7.7); Neutrophils % 77.5 %; Nucleated Red Blood Cells % 0 %; Platelet Count 113 10^3/cmm (130-400); Red Blood Count 3.88 10^6/uL (4.1-5.3); Red Cell Distribution Width 14.6 % (12.1-15.1); White Blood Count 3.8 10^3/uL (4.0-10.0)
--- NOTE | 2019-12-02 18:47 | ONC FU_ITS ---
[facility] Patient Note Patient: Mauro Otero Unit #: [id number]: 1945 Dictated By: Silvano ElliottDate of Visit: November 29, 2019 Onc MED Follow-Up/Prog Note Chief Complaint: Lymphoma/glioblastoma multiforme. History of Present Illness: Mr Otero is a 74-year-old man with diffuse large B-cell lymphoma, by clinical evaluation at least stage III and IPI at least 3. He has now been found to have glioblastoma multiforme involving the left frontal lobe of the brain. He has a known history of abdominal aortic aneurysm for which he underwent abdominal aortic aneurysm repair using bifurcation graft in 2016. On his surveillance CT angiogram in April 2019 he was incidentally noted to have left periaortic lymphadenopathy. He then underwent CT directed needle biopsy of the left periaortic lymph node on 06/05/2019. Pathology was consistent with diffuse large B-cell lymphoma. The tumor cells were noted to be positive for CD45, CD20, CD10, CD23, BCL-2, and BCL-6. They were negative for CD3, CD5, CD21, CD30, and cyclin D1. The staining pattern by IHC was found to be consistent with diffuse large B-cell lymphoma, germinal center type. Dr Hoffman had seen him initially on 06/18/2019. Staging PET/CT on 06/23/2019 showed a 1.9 x 1.3 cm left upper lobe pulmonary nodule with SUV 23.8, consistent with extranodal disease. Also noted were FDG positive lymph nodes in the posterior mediastinum and left hilar region with SUVs up to 9.4. Bilateral retrocrural lymph nodes were also FDG positive. A complex retroperitoneal mass was noted to envelop the aortic aneurysm, roughly measuring 12.9 x 9.9 cm with SUV 34.4. There were positive mesenteric lymph nodes, consistent with lymphoma. His baseline echocardiogram showed normal left ventricular systolic function with ejection fraction estimated at 65%. With those findings and with relatively good performance status, he was recommended to undergo treatment with R-CHOP chemotherapy. He began cycle 1 of R-CHOP chemotherapy on 06/28/2019. He tolerated the treatment with acceptable toxicity. He was then able to continue with cycle 2 on 07/19/2019 and with cycle 3 on 08/09/2019. Restaging PET/CT on 09/01/2019 showed residual abdominal mass encasing the aorta measuring 8.6 x 8.7 cm but with only minimal FDG activity. Mediastinal lymph nodes were noted to be subcentimeter in size and FDG negative. Retrocrural and lymph nodes were also subcentimeter in size and FDG negative. The left upper lobe pulmonary nodule was noted to measure 1.0 cm and it was no longer clearly solid. It was entirely FDG negative. Overall, the findings were consistent with a near complete response to therapy (Deauville Criteria 2). At that point he had reported increased memory loss and cognitive dysfunction, which had been assumed that it was chemotherapy related. Dr Hoffman had encouraged him, though, to complete a least 1 more cycle of treatment, and he then continued with cycle 4 of R-CHOP on 09/05/2019. His cognitive function continued to worsen fairly dramatically. He then had evaluation with head MRI on 09/20/2019. It showed a large heterogeneously enhancing left frontal mass measuring 7.1 x 3.3 x 5.5 cm. There was a large amount of surrounding edema and there was associated left to right midline shift measuring 1.7 cm. Enhancement was noted to extend to the ventricular surface and cortical surface, suspicious for leptomeningeal spread of disease. There was effacement of the left lateral ventricle and partial effacement of the right lateral ventricle. He was transferred to [facility] for admission and on 09/24/2019 he underwent left frontal craniotomy with resection of the tumor. Pathology was consistent with glioblastoma multiforme. He tolerated the surgery well. He subsequently was transferred to the [facility] rehab facility in [place]. He returned home on 10/10/2019. He was then seen here for postoperative chemoradiation. His other medical illnesses, in addition to the abdominal aortic aneurysm, include hypertension, hyperlipidemia, hypothyroidism, and degenerative arthritis. He is a non-smoker. INTERIM HISTORY: He began radiation, concurrently with temozolomide chemotherapy on 10/31/2019. 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 Mr. Otero is here today for follow-up. He is nearing completion of his radiation he thinks within the next week. He states he continues to do well overall. He admits to driving to [place] with just him and his over the weekend and states that he tolerated this poorly and we will try that again . He states that he was just washed out and worn out and did not feel safe driving. He denies any concerns today. He denies headaches or vision changes. He is tolerating the dexamethasone 2 mg well. He states he is eating good. His energy is fair. He has had no diarrhea or constipation. He denies any recurrent headaches or vision changes. He denies any chest pain, palpitations or any neuropathy symptoms. Overall he states that he is doing well. His ECOG is 2 just due to his generalized weakness. Past Medical History: Abdominal aortic aneurysm Hyperlipidemia Hypertension Hypothyroidism Past Surgical History: Craniotomy for excision of brain tumor in 2019 - left frontal Abdominal aortic aneurysm repair in 2015 Left total knee arthroplasty in 2011 Arthroscopic left knee surgery in 2010 Allergies: No Known Allergies. Medications: amLODIPine Besylate 1 Tablet (of 5 mg) Oral daily Levothyroxine Sodium 1 Tablet (of 50 mcg) Oral daily Grace-3 Fatty Acids 1 Capsule (of 1000 mg) Oral daily Ondansetron 1 Tablet (of 8 mg) Tablet Dispersable Oral t.i.d. PRN Senna 2 Capsule (of 8.6 mg) Oral b.i.d. Simvastatin 1 Tablet (of 40 mg) Oral daily Temozolomide (5 mg) Capsule Oral Take as Directed traZODone HCl 1 - 2 Tablet (of 50 mg) Oral at bedtime Vitamin D3 2 Tablet (of 1000 Units) Oral daily Family History: Mr. Otero's mother at age 70: brain cancer. Mr. Otero's father at age 85. Mr. Otero has 2 brothers: 1 alive, 1 . He has 2 sisters: 1 alive, 1 . Father at 85 with old age. Mother of brain cancer at age 70. A sister of lung disease and brother from complications related to an aneurysm. His other brother also has a history of aneurysm. Several paternal uncles dropped over . Social History: Mr. Otero is and he is retired. Mr. Otero has never smoked. He has no history of drinking. Mr. Otero reports the following support systems: lives with spouse, significant other, family, or friends, lives in own house, supportive family/friends willing to assist with needs, and transportation problems exist and will require assistance. His diet consists of regular meals. He indicates his activity level as: light exercise. He is a nonsmoker. He does not drink alcohol. Review Of Symptoms: Constitutional Denies fevers, chills, night sweats, excessive fatigue or weight loss. Allergic/Immunologic No reactions. Eyes Denies significant visual changes. No diplopia. No amaurosis. ENMT Denies changes in hearing, sore throat, mouth sores, difficulty or changes in swallowing ability, and/or sinus drainage. Endocrine No diabetes, thyroid disease or hormone replacement. Denies hot flashes or night sweats. Hematologic/Lymphatic Denies easy bruising or bleeding. The patient denies any tender or palpable lymph nodes. Respiratory Denies dyspnea on exertion, chest pain, cough or hemoptysis. Denies orthopnea. Cardiovascular Denies anginal chest pain, palpitations or orthopnea. Gastrointestinal Denies nausea, vomiting, GI bleeding, or constipation. Denies change in bowel habits and/or stool color, no heartburn or early satiety. Genitourinary (M) Denies hematuria, dysuria, increased frequency, urgency, hesitancy or incontinence. Musculoskeletal Denies joint pain, swelling or redness. No decreased range of motion. Integumentary Denies chronic rashes, inflammation, ulcerations or skin changes. Neurologic Denies headache, blurred vision, and no areas of focal weakness or numbness. Normal gait. No sensory problems. Psychiatric Denies insomnia, depression, mj or mood swings. Vital Signs: Performed on November 29, 2019 10:30 Height - 71.00 in Weight - 193.2 lbs (LOW) BSA - 2.08 sq.m BMI - 26.95 Temperature - 98.0 F (LOW) Pulse - 71 /min Respiration - 21 /min BP - 114/72 mm(hg) O2 Sat - 96 % Pain - 0,2 - Ambulatory/capable of all self-care, unable to perform any work activities. Up and about more than 50% of waking hours. (ECOG) Physical Examination: Constitutional Alert, oriented, no acute distress. Skin pink, warm and dry. Head Normocephalic; atraumatic. Eyes Conjunctivae and sclerae are clear and without icterus. Pupils are reactive and equal. ENMT No oral exudates, ulcers, masses, thrush or mucositis. Oropharynx clear. Tongue normal. Neck Supple without masses or thyromegaly. No jugular venous distension. Hematologic/Lymphatic No petechiae or purpura. No tender or palpable lymph nodes in the cervical or supraclavicular areas. Respiratory Lungs are clear to auscultation without rhonchi or wheezing. Cardiovascular Regular rate and rhythm of heart without murmurs,clicks, gallops or rubs. Abdomen Non-tender, non-distended, no masses or ascites. Good bowel sounds noted in all quads. No guarding or rebound tenderness. No pulsatile masses. Back/Spine Non-tender to palpation. Extremities No visible deformities, no cyanosis, clubbing or edema. Musculoskeletal No tenderness or swelling, normal range of motion without obvious weakness. Integumentary No rashes or lesions. Neurologic No sensory or motor deficits, normal cerebellar function, normal gait. Psychiatric Alert and oriented times three. Coherent speech. Verbalizes understanding of our discussions today. Laboratory:Test performed on November 29, 2019 11:00 WBC 3.8 10 3/uL RBC 3.88 10 6/uL HGB 12.7 g/dL HCT 38.4 % MCV 99.0 fL MCH 32.7 pg MCHC 33.1 g/dL RDW 14.6 % Platelet Count 113 10 3/cmm MPV 8.9 fL Neutrophils 2.9 10 3/uL Lymphocytes 0.4 10 3/uL Monocytes 0.2 10 3/uL Eosinophils 0.1 10 3/uL Basophils 0.0 10 3/uL Neutrophil % 77.5 % Lymphocyte % 10.8 % Monocyte % 5.6 % Eosinophil % 1.3 % Basophils % 0.3 % Test performed on November 21, 2019 10:35 Sodium 139 mmol/L Potassium 4.5 mmol/L Chloride 103 mmol/L CO2 27 mmol/L Anion Gap 13.5 BUN 20 mg/dL Creatinine 0.8 mg/dL Cr Clearance (Est) 101.4000 mL/min Glucose 124 mg/dL Calcium 9.2 mg/dL Protein, Total 6.9 g/dL Albumin 4.1 g/dL Globulin 2.8 g/dL Bilirubin, Total 0.4 mg/dL ALT (SGPT) 19 U/L AST (SGOT) 19 U/L Alkaline Phosphatase 54 IU/L Test performed on Sep 11, 2019 14:17 CBC Slide Review Slide Review Perform Test performed on Aug 29, 2019 07:50 LDH (Total) 171 U/L Impression: 1. Patient with diffuse large B-cell lymphoma, germinal center subtype, presenting with CT evidence of left periaortic lymphadenopathy. By clinical evaluation his disease was at least stage III with IPI score 3. He underwent CT-directed needle biopsy of a left periaortic lymph node on 06/05/2019. 2. There was also PET/CT evidence of FDG avid left upper lobe pulmonary nodule, possibly indicative of extranodal lymphoma (stage IV) versus other primary malignancy. 3. He underwent treatment with 4 cycles of R-CHOP chemotherapy from 06/28/2019 thru 09/05/2019. He had evidence of very good response by restaging PET/CT after 2 cycles. 4. He had worsening memory loss and cognitive dysfunction following his third and fourth cycles of chemotherapy. He was then found by brain MRI on 09/20/2019 to have a large left frontal lobe brain mass. 5. He underwent craniotomy/excision of the brain mass on 09/24/2019 with pathology consistent with glioblastoma multiforme. His other medical illnesses include: 6. Hypertension. 7. Hyperlipidemia. 8. Hypothyroidism. 9. Degenerative arthritis. 10. He underwent abdominal aortic aneurysm repair with bifurcation graft in 2016. He had significant improvement in his neurologic symptoms following the surgery. On 10/31/2019 he began postoperative radiation concurrently with temozolomide chemotherapy. Thus far he has been tolerating the treatment extremely well. Plan: 1. Proceed [facility] radiation concurrently with temozolomide at 75 mg/m??? daily as planned. 2. Continue dexamethasone to 2 mg daily until evaluation next week. 3. Labs from November 20 were reviewed. He did not have labs drawn prior to this visit today even though he was requested to do that several times yesterday at his radiation appointment. His labs from November 20 were stable. I did ask him to stop and have his labs drawn on the way out. 4. We will plan to see him back in 1 week as scheduled at which time he will have repeat CBC CMP. He should have his radiation complete at that time. We will be able to set up further appointments for monitoring after radiation and when or if he needs to resume Tem[place]ar post radiation. 5. . Mrs. Otero were instructed to contact us in the interim should questions or problems arise. 6. He has been cautioned against driving and advised not to do so. Signed By: Silvano Elliott-, [facility] Murray Hoffman MD <<Signature on File>>
[2019-12-05 11:06] LABS: Basophils % 0.7 %; Eosinophils % 1.4 %; Hematocrit 37.3 % (42.0-52.0); Hemoglobin 12.1 g/dL (11.7-16.6); Lymphocytes # 0.3 10^3/uL (0.8-4.8); Lymphocytes % 11.6 %; Mean Corpuscular HGB Conc 32.4 g/dL (30.0-36.0); Mean Corpuscular Hemoglobin 31.9 pg (28.0-34.0); Mean Corpuscular Volume 98.4 fL (80-94); Mean Platelet Volume 9.2 fL (7.4-10.4); Monocytes # 0.2 10^3/uL (0.2-0.9); Monocytes % 6.8 %; Neutrophils # 2.3 10^3/uL (1.8-7.7); Neutrophils % 76.8 %; Nucleated Red Blood Cells % 0 %; Platelet Count 149 10^3/cmm (130-400); Red Blood Count 3.79 10^6/uL (4.1-5.3); Red Cell Distribution Width 14.7 % (12.1-15.1); White Blood Count 2.9 10^3/uL (4.0-10.0)
[2019-12-05 11:19] LABS: Alanine Aminotransferase 19 U/L (0-41); Alkaline Phosphatase 63 IU/L (40-130); Anion Gap 15.7 (5-19); Aspartate Amino Transferase 27 U/L (0-40); Blood Urea Nitrogen 14 mg/dL (8-23); Calcium 10.2 mg/dL (8.5-10.5); Carbon Dioxide 27 mmol/L (22-29); Chloride 103 mmol/L (98-107); Globulin 2.7 g/dL (1.3-4.6); Glucose 84 mg/dL (65-115); Osmolality Calculated 289 mOsm/kg (285-295); Potassium 3.7 mmol/L (3.5-5.1); Sodium 142 mmol/L (136-145); Total Bilirubin 0.4 mg/dL (0.15-1.2); Total Protein 6.7 g/dL (6.6-8.7)
--- NOTE | 2019-12-05 11:19 | ONCRAD TMN_ITS ---
Radiation Oncology Weekly Treatment Management Patient: Mauro Otero MR#: [id number] : 1945> Age: 74> Sex: Male Dictated by: Dr. Shoaib Krishnamurthy Date of Service: 12/05/2019 Referring Physician(s) : Murray Hoffman M.D. 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 ID: [id number], Energy: 6X, Dose/Fx (cGy): 200, #Fx: 20 / 20, Dose Correction (cGy): 0, Total Dose (cGy): 4,000, Start Date: 10/31/2019, End Date: 11/27/2019, Elapsed Days: 27 Treatment Site: GBM 54Gy, Ref. ID: [id number], Energy: 6X, Dose/Fx (cGy): 200, #Fx: 6 / 7, Dose , Correction (cGy): 0, Total Dose (cGy): 1,200, Start Date: 11/28/2019, Elapsed Days: 7 Current Complaints/Interval History: He is eating well with no headaches nausea vomiting. His unsteady gait is unchanged. He has had no falls, energy level is good. He is using topical Aquaphor for his scalp erythema. Constitutional Complains of mild fatigue. Denies lack of appetite, fever, night sweats and change in weight. Eyes Denies blurred vision and double vision. Integumentary Has redness to the scalp Gastrointestinal Denies nausea and vomiting. Neurologic Complains of disorientation and abnormal gait with walking. Denies dizziness and headaches. Current Medications: Acetaminophen, aLPRAZolam, amLODIPine Besylate, celeXA, cyclophosphamide, decadron, dexamethasone Sodium Phosphate, diphenhydrAMINE HCl, dOXOrubicin HCl, emend, hYDROcodone-Acetaminophen, levothyroxine Sodium, lORazepam, neulasta, omega-3 Fatty Acids, ondansetron, ondansetron, palonosetron HCl, predniSONE, prochlorperazine Maleate, riTUXimab, senna, senna-S, simvastatin, sodium Chloride, temozolomide, traZODone HCl, vinCRIStine Sulfate, vitamin D3, zithromax Z-Ronn. Allergies: No Known Allergies Vital Signs: Performed on 12/05/2019 9:35 AM BMI - 27.281 kg/m2 (high), Height - 71.00 in, Weight - 195.6 lbs, Temperature - 97.8 f, Pulse - 78, Respiration - 20, O2 Sat - 99 %, Pain - 0 and BP - 111/ 73 mm(hg). Physical Exam: . Generalized scalp erythema and tanning no desquamation seen. Oral cavity was clear no candidiasis was seen Performance Status: 2 - Ambulatory/capable of all self-care, unable to perform any work activities. Up and about more than 50% of waking hours. (ECOG) Lab: None pending in Radiation Oncology. Test performed on 11/21/2019 10:35 AM Glucose - 124 mg/dl (high), Test performed on 11/29/2019 11:00 AM WBC - 3.8 10 3/ul (low), RBC - 3.88 10 6/ul (low), HCT - 38.4 % (low), MCV - 99.0 fl (high), Platelet Count - 113 10 3/cmm (low) and Lymphocytes - 0.4 10 3/ul (low). Imaging: No new diagnostic imaging was performed since the last weekly treatment visit. All radiation therapy related imaging (including but not limited to kV, MV, and CBCT generated images) was reviewed. Appropriate changes, if any, were made to assure accurate target localization. Impression/Plan: Tolerating treatment well with expected side effects. Continue treatment as planned. CPT: 02561 Signed by: Dr. Shoaib Krishnamurthy>12/05/2019 11:18:22 AM <<Signature on File>>
[2019-12-05 11:49] LABS: Slide Review Slide Review Perform
--- NOTE | 2019-12-09 13:28 | ONC FU_ITS ---
Dr. Hoffman Patient Follow-Up Note Patient: Mauro Otero Unit #: [id number]: 1945 Dicatated By: Murray Hoffman M.D.Date of Visit:December 06, 2019 Onc Med Follow-up/Prog Note Chief Complaint: Lymphoma/glioblastoma multiforme. History of Present Illness: This is a 74-year-old man with diffuse large B-cell lymphoma, by clinical evaluation at least stage III and IPI at least 3. He has now been found to have glioblastoma multiforme involving the left frontal lobe of the brain. He has a known history of abdominal aortic aneurysm for which he underwent abdominal aortic aneurysm repair using bifurcation graft in 2016. On his surveillance CT angiogram in April 2019 he was incidentally noted to have left periaortic lymphadenopathy. He then underwent CT directed needle biopsy of the left periaortic lymph node on 06/05/2019. Pathology was consistent with diffuse large B-cell lymphoma. The tumor cells were noted to be positive for CD45, CD20, CD10, CD23, BCL-2, and BCL-6. They were negative for CD3, CD5, CD21, CD30, and cyclin D1. The staining pattern by IHC was found to be consistent with diffuse large B-cell lymphoma, germinal center type. I had seen him initially on 06/18/2019. Staging PET/CT on 06/23/2019 showed a 1.9 x 1.3 cm left upper lobe pulmonary nodule with SUV 23.8, consistent with extranodal disease. Also noted were FDG positive lymph nodes in the posterior mediastinum and left hilar region with SUVs up to 9.4. Bilateral retrocrural lymph nodes were also FDG positive. A complex retroperitoneal mass was noted to envelop the aortic aneurysm, roughly measuring 12.9 x 9.9 cm with SUV 34.4. There were positive mesenteric lymph nodes, consistent with lymphoma. His baseline echocardiogram showed normal left ventricular systolic function with ejection fraction estimated at 65%. With those findings and with relatively good performance status, he was recommended to undergo treatment with R-CHOP chemotherapy. He began cycle 1 of R-CHOP chemotherapy on 06/28/2019. He tolerated the treatment with acceptable toxicity. He was then able to continue with cycle 2 on 07/19/2019 and with cycle 3 on 08/09/2019. Restaging PET/CT on 09/01/2019 showed residual abdominal mass encasing the aorta measuring 8.6 x 8.7 cm but with only minimal FDG activity. Mediastinal lymph nodes were noted to be subcentimeter in size and FDG negative. Retrocrural and lymph nodes were also subcentimeter in size and FDG negative. The left upper lobe pulmonary nodule was noted to measure 1.0 cm and it was no longer clearly solid. It was entirely FDG negative. Overall, the findings were consistent with a near complete response to therapy (Deauville Criteria 2). At that point he had reported increased memory loss and cognitive dysfunction, which I had assumed that it was chemotherapy related. I had encouraged him, though, to complete a least 1 more cycle of treatment, and he then continued with cycle 4 of R-CHOP on 09/05/2019. His cognitive function continued to worsen fairly dramatically. He then had evaluation with head MRI on 09/20/2019. It showed a large heterogeneously enhancing left frontal mass measuring 7.1 x 3.3 x 5.5 cm. There was a large amount of surrounding edema and there was associated left to right midline shift measuring 1.7 cm. Enhancement was noted to extend to the ventricular surface and cortical surface, suspicious for leptomeningeal spread of disease. There was effacement of the left lateral ventricle and partial effacement of the right lateral ventricle. He was transferred to [facility] for admission and on 09/24/2019 he underwent left frontal craniotomy with resection of the tumor. Pathology was consistent with glioblastoma multiforme. He tolerated the surgery well. He subsequently was transferred to the [facility] rehab facility in [place]. He returned home on 10/10/2019. He was then seen here for postoperative chemoradiation. His other medical illnesses, in addition to the abdominal aortic aneurysm, include hypertension, hyperlipidemia, hypothyroidism, and degenerative arthritis. He is a non-smoker. INTERIM HISTORY: He began radiation, concurrently with temozolomide chemotherapy on 10/31/2019. 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 His symptoms did improve, and during subsequent follow-up he was able to tolerate the temozolomide with no apparent adverse effects. He is seen for a scheduled visit. He is completing his radiation today to a total dose of 5400 cGy. During the past week or so he has not been feeling as good. He has been weaker generally and he has had some decline in his activity tolerance. His ECOG score is 2. He still has good appetite. He has no fever or night sweats. He has had no mouth sores. He has no shortness of breath, cough, or chest pain. He has no GI or complaints. He has been having pain in his left knee and in his left foot. He does not complain of headache or dizziness. He has no numbness/paresthesia or other focal neurologic symptoms. Medications: amLODIPine Besylate 1 Tablet (of 5 mg) Oral daily, Levothyroxine Sodium 1 Tablet (of 50 mcg) Oral daily, [place]-3 Fatty Acids 1 Capsule (of 1000 mg) Oral daily, Ondansetron 1 Tablet (of 8 mg) Tablet Dispersable Oral t.i.d. PRN, Senna 2 Capsule (of 8.6 mg) Oral b.i.d. PRN, Simvastatin 1 Tablet (of 40 mg) Oral daily, Temozolomide (5 mg) Capsule Oral Take as Directed, traZODone HCl 1 - 2 Tablet (of 50 mg) Oral at bedtime, Vitamin D3 1 Tablet (of 1500 Units) Oral daily Allergies: No Known Allergies. Review of Systems: Constitutional - He is not feeling as good generally. He is weaker and there has been decline in his activity. He still has good appetite. His weight is stable. He has no fever or night sweats. ECOG score is 2, ENMT - No sinus congestion/drainage. No mouth sores. No sore throat or difficulty swallowing, Hematologic/Lymphatic - No abnormal bruising or bleeding, Respiratory - No shortness of breath. No cough. No pleuritic pain or hemoptysis, Cardiovascular - No angina pain. No palpitations, Gastrointestinal - No nausea or vomiting. No heartburn or acid reflux. No diarrhea or constipation. No blood in the stool or black stools, Genitourinary (M) - No dysuria or hematuria. No urinary frequency. No urgency or incontinence, Musculoskeletal - He has been having pain in his left knee and foot, Integumentary - No skin complications, Neurologic - No headache or dizziness. No numbness/paresthesias or other focal neurologic symptoms, Psychiatric - No anxiety or depression. He is mostly sleeping okay. Vital Signs: Performed on December 06, 2019 08:41 Height - 71.00 in Weight - 195.8 lbs (HIGH) BSA - 2.09 sq.m BMI - 27.31 Temperature - 98.5 F Pulse - 85 /min Respiration - 20 /min BP - 99/61 mm(hg) O2 Sat - 95 % (LOW) Pain - 7 Physical Examination: Constitutional - He appears somewhat weak generally, Eyes - Sclerae nonicteric. Conjunctivae clear, ENMT - No lesions noted in the oral cavity, Hematologic/Lymphatic - No cervical, clavicular, or axillary adenopathy, Respiratory - Lungs are clear with good air movement bilaterally, Cardiovascular - Heart rhythm is regular. There is no murmur, gallop, or rub noted, Abdomen - Soft. Liver and spleen are not enlarged. There is no abdominal mass or ascites noted and there is no inguinal adenopathy, Extremities - No edema, Neurologic - He has some difficulty with ambulating. There are no focal neurologic deficits noted. Lab/Imaging: CBC shows hemoglobin 12.1 g, white blood cell count 2900, and platelet count 149,000. Comprehensive metabolic profile is unremarkable. Impression: 1. Patient with diffuse large B-cell lymphoma, germinal center subtype, presenting with CT evidence of left periaortic lymphadenopathy. By clinical evaluation his disease was at least stage III with IPI score 3. He underwent CT-directed needle biopsy of a left periaortic lymph node on 06/05/2019. 2. There was also PET/CT evidence of FDG avid left upper lobe pulmonary nodule, possibly indicative of extranodal lymphoma (stage IV) versus other primary malignancy. 3. He underwent treatment with 4 cycles of R-CHOP chemotherapy from 06/28/2019 thru 09/05/2019. He had evidence of very good response by restaging PET/CT after 2 cycles. 4. He had worsening memory loss and cognitive dysfunction following his third and fourth cycles of chemotherapy. He was then found by brain MRI on 09/20/2019 to have a large left frontal lobe brain mass. 5. He underwent craniotomy/excision of the brain mass on 09/24/2019 with pathology consistent with glioblastoma multiforme. His other medical illnesses include: 6. Hypertension. 7. Hyperlipidemia. 8. Hypothyroidism. 9. Degenerative arthritis. 10. He underwent abdominal aortic aneurysm repair with bifurcation graft in 2016. He had significant improvement in his neurologic symptoms following the surgery. On 10/31/2019 he began postoperative radiation concurrently with temozolomide chemotherapy. He had been tolerating the temozolomide with no apparent adverse effects until the past 1 to 2 weeks, during which time he has had some decline in his activity tolerance and in his blood counts. Overall, though, he has tolerated the treatment very well. He is completing radiation today to a total dose of 5400 cGy. Plan: He will take his final dose of daily temozolomide today. He will be scheduled for a follow-up visit in 4 weeks, at which time he will be due to start monthly cycles of temozolomide. In the meantime, his dexamethasone dosage will be further reduced to 1 mg daily. He also will be given a prescription for meloxicam 15 mg daily. I will coordinate the scheduling of his follow-up MRI with Dr. Krishnamurthy. Signed By: Murray Hoffman M.D. <<Signature on File>>
== END 2019-12-16 23:59 | disposition home or self-care (01) ==
LOC: ONCMED 06:46
PROVIDERS: Nurse Practitioner; Absent Provider Radiology Radiation Oncology; PCP Family Medicine; Visit Provider Internal Medicine Medical Oncology
DX: Z51.0 Encounter for antineoplastic radiation therapy (principal); C83.33 Diffuse large B-cell lymphoma, intra-abdominal lymph nodes; C71.1 Malignant neoplasm of frontal lobe; E78.5 Hyperlipidemia, unspecified; I10 Essential (primary) hypertension; E03.9 Hypothyroidism, unspecified; Z79.899 Other long term (current) drug therapy
CPT/HCPCS: 36415; 77336; 77386; 80053; 85025; 99214

== ENCOUNTER 2020-01-07 08:45 | Outpatient (RCR) | payer MEDICARE, OTHER, SELFPAY ==
[2019-12-24 08:56] LABS: Basophils % 0.3 %; Eosinophils % 0.2 %; Hematocrit 37.6 % (42.0-52.0); Hemoglobin 12.2 g/dL (11.7-16.6); Lymphocytes # 1.5 10^3/uL (0.8-4.8); Lymphocytes % 24.7 %; Mean Corpuscular HGB Conc 32.4 g/dL (30.0-36.0); Mean Corpuscular Hemoglobin 31.9 pg (28.0-34.0); Mean Corpuscular Volume 98.4 fL (80-94); Mean Platelet Volume 9.3 fL (7.4-10.4); Monocytes # 0.5 10^3/uL (0.2-0.9); Monocytes % 7.8 %; Neutrophils # 3.9 10^3/uL (1.8-7.7); Neutrophils % 65.7 %; Nucleated Red Blood Cells % 0 %; Platelet Count 140 10^3/cmm (130-400); Red Blood Count 3.82 10^6/uL (4.1-5.3); Red Cell Distribution Width 14.6 % (12.1-15.1)
[2019-12-24 09:08] LABS: Chloride 106 mmol/L (98-107); Potassium 3.9 mmol/L (3.5-5.1); Sodium 142 mmol/L (136-145)
[2019-12-24 09:34] LABS: Alanine Aminotransferase 14 U/L (0-41); Alkaline Phosphatase 56 IU/L (40-130); Anion Gap 15.9 (5-19); Aspartate Amino Transferase 17 U/L (0-40); Blood Urea Nitrogen 11 mg/dL (8-23); Calcium 9.8 mg/dL (8.5-10.5); Carbon Dioxide 24 mmol/L (22-29); Glucose 109 mg/dL (65-115); Lactate Dehydrogenase 203 U/L (135-225); Osmolality Calculated 291 mOsm/kg (285-295); Total Bilirubin 0.4 mg/dL (0.15-1.2); Total Protein 6.5 g/dL (6.6-8.7)
[2019-12-24 10:04] LABS: Albumin Level 4.2 g/dL (3.5-5.2); Globulin 2.3 g/dL (1.3-4.6)
--- NOTE | 2019-12-25 08:06 | ONC FU_ITS ---
Dr. Hoffman Patient Follow-Up Note Patient: Mauro Otero Unit #: [id number]: 1945 Dicatated By: Murray Hofmfan M.D.Date of Visit:Dec 24, 2019 Onc Med Follow-up/Prog Note Chief Complaint: Lymphoma/glioblastoma multiforme. History of Present Illness: This is a 74-year-old man with diffuse large B-cell lymphoma, by clinical evaluation at least stage III and IPI at least 3. He has now been found to have glioblastoma multiforme involving the left frontal lobe of the brain. He has a known history of abdominal aortic aneurysm for which he underwent abdominal aortic aneurysm repair using bifurcation graft in 2016. On his surveillance CT angiogram in April 2019 he was incidentally noted to have left periaortic lymphadenopathy. He then underwent CT directed needle biopsy of the left periaortic lymph node on 06/05/2019. Pathology was consistent with diffuse large B-cell lymphoma. The tumor cells were noted to be positive for CD45, CD20, CD10, CD23, BCL-2, and BCL-6. They were negative for CD3, CD5, CD21, CD30, and cyclin D1. The staining pattern by IHC was found to be consistent with diffuse large B-cell lymphoma, germinal center type. I had seen him initially on 06/18/2019. Staging PET/CT on 06/23/2019 showed a 1.9 x 1.3 cm left upper lobe pulmonary nodule with SUV 23.8, consistent with extranodal disease. Also noted were FDG positive lymph nodes in the posterior mediastinum and left hilar region with SUVs up to 9.4. Bilateral retrocrural lymph nodes were also FDG positive. A complex retroperitoneal mass was noted to envelop the aortic aneurysm, roughly measuring 12.9 x 9.9 cm with SUV 34.4. There were positive mesenteric lymph nodes, consistent with lymphoma. His baseline echocardiogram showed normal left ventricular systolic function with ejection fraction estimated at 65%. With those findings and with relatively good performance status, he was recommended to undergo treatment with R-CHOP chemotherapy. He began cycle 1 of R-CHOP chemotherapy on 06/28/2019. He tolerated the treatment with acceptable toxicity. He was then able to continue with cycle 2 on 07/19/2019 and with cycle 3 on 08/09/2019. Restaging PET/CT on 09/01/2019 showed residual abdominal mass encasing the aorta measuring 8.6 x 8.7 cm but with only minimal FDG activity. Mediastinal lymph nodes were noted to be subcentimeter in size and FDG negative. Retrocrural and lymph nodes were also subcentimeter in size and FDG negative. The left upper lobe pulmonary nodule was noted to measure 1.0 cm and it was no longer clearly solid. It was entirely FDG negative. Overall, the findings were consistent with a near complete response to therapy (Deauville Criteria 2). At that point he had reported increased memory loss and cognitive dysfunction, which I had assumed that it was chemotherapy related. I had encouraged him, though, to complete a least 1 more cycle of treatment, and he then continued with cycle 4 of R-CHOP on 09/05/2019. His cognitive function continued to worsen fairly dramatically. He then had evaluation with head MRI on 09/20/2019. It showed a large heterogeneously enhancing left frontal mass measuring 7.1 x 3.3 x 5.5 cm. There was a large amount of surrounding edema and there was associated left to right midline shift measuring 1.7 cm. Enhancement was noted to extend to the ventricular surface and cortical surface, suspicious for leptomeningeal spread of disease. There was effacement of the left lateral ventricle and partial effacement of the right lateral ventricle. He was transferred to [facility] for admission and on 09/24/2019 he underwent left frontal craniotomy with resection of the tumor. Pathology was consistent with glioblastoma multiforme. He tolerated the surgery well. He subsequently was transferred to the [facility] rehab facility in [place]. He returned home on 10/10/2019. He was then seen here for postoperative chemoradiation. His other medical illnesses, in addition to the abdominal aortic aneurysm, include hypertension, hyperlipidemia, hypothyroidism, and degenerative arthritis. He is a non-smoker. INTERIM HISTORY: He began radiation, concurrently with temozolomide chemotherapy on 10/31/2019. 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 His symptoms did improve, and during subsequent follow-up he was able to tolerate the temozolomide with no apparent adverse effects. He completed radiation on 12/06/2019 to a total dose of 5400 cGy. At that point his dexamethasone dosage was further tapered to 1 mg daily. He is seen for an unplanned visit. Llast he had reported that he was feeling a lot worse, mainly due to weakness/fatigue and to loss of appetite. As of Tuesday I had him try increasing the dexamethasone back up to 4 mg daily. He is really not feeling much better, though. He continues to have fatigue, and his says he sleeps a lot. His appetite is still not good, but his weight is stable. His balance is not real good, and he says he feels a little jumpy. He has no other specific complaints. Medications: Levothyroxine Sodium 1 Tablet (of 50 mcg) Oral daily, Meloxicam 1 Tablet (of 15 mg) Oral daily, [place]-3 Fatty Acids 1 Capsule (of 1000 mg) Oral daily, Ondansetron 1 Tablet (of 8 mg) Tablet Dispersable Oral t.i.d. PRN, Senna 2 Capsule (of 8.6 mg) Oral b.i.d. PRN, Simvastatin 1 Tablet (of 40 mg) Oral daily, Temozolomide (5 mg) Capsule Oral Take as Directed, traZODone HCl 1 - 2 Tablet (of 50 mg) Oral at bedtime, Vitamin D3 1 Tablet (of 1500 Units) Oral daily Allergies: No Known Allergies. Review of Systems: Constitutional - His energy was worsened, and he is sleeping more. He is still able to do some light work. His appetite is poor, but his weight is stable. No fever, night sweats, or hot flashes. ECOG score is 2, ENMT - No sinus congestion/drainage. No mouth sores. No sore throat or difficulty swallowing, Hematologic/Lymphatic - No abnormal bruising or bleeding, Respiratory - No shortness of breath. No cough. No pleuritic pain or hemoptysis, Cardiovascular - No angina pain. No palpitations, Gastrointestinal - No nausea or vomiting. No heartburn or acid reflux. No diarrhea or constipation. No blood in the stool or black stools, Genitourinary (M) - No dysuria or hematuria. No urinary frequency. No urgency or incontinence, Musculoskeletal - No joint or bone pain, Integumentary - No skin complications, Neurologic - No headache or dizziness. He has episodes of feeling off balance. No numbness or tingling. No other focal neurologic symptoms, Psychiatric - No anxiety or depression. No insomnia. He does feel a little jumpy. Vital Signs: Performed on Dec 24, 2019 08:16 Height - 71.00 in Weight - 196.2 lbs (HIGH) BSA - 2.09 sq.m BMI - 27.36 Temperature - 98.0 F (LOW) Pulse - 58 /min (LOW) Respiration - 20 /min BP - 144/88 mm(hg) (HIGH) O2 Sat - 98 % Pain - 0 Physical Examination: Constitutional - He appears somewhat weak generally, Eyes - Sclerae nonicteric. Conjunctivae clear, ENMT - No lesions noted in the oral cavity, Hematologic/Lymphatic - No cervical, clavicular, or axillary adenopathy, Respiratory - Lungs are clear with good air movement bilaterally, Cardiovascular - Heart rhythm is regular. There is no murmur, gallop, or rub noted, Abdomen - Soft. Liver and spleen are not enlarged. There is no abdominal mass or ascites noted and there is no inguinal adenopathy, Extremities - No edema, Neurologic - He still has a shuffling gait. He does not appear to have any focal neurologic deficit. Lab/Imaging: Test performed on Dec 24, 2019 08:05 LDH (Total) 203 U/L Sodium 142 mmol/L Potassium 3.9 mmol/L Chloride 106 mmol/L CO2 24 mmol/L Anion Gap 15.9 BUN 11 mg/dL Creatinine 0.7 mg/dL Cr Clearance (Est) 115.8900 mL/min Glucose 109 mg/dL Calcium 9.8 mg/dL Protein, Total 6.5 g/dL Albumin 4.2 g/dL Globulin 2.3 g/dL Bilirubin, Total 0.4 mg/dL ALT (SGPT) 14 U/L AST (SGOT) 17 U/L Alkaline Phosphatase 56 IU/L WBC 6.0 10 3/uL RBC 3.82 10 6/uL HGB 12.2 g/dL HCT 37.6 % MCV 98.4 fL MCH 31.9 pg MCHC 32.4 g/dL RDW 14.6 % Platelet Count 140 10 3/cmm MPV 9.3 fL Neutrophils 3.9 10 3/uL Lymphocytes 1.5 10 3/uL Monocytes 0.5 10 3/uL Eosinophils 0.0 10 3/uL Basophils 0.0 10 3/uL Neutrophil % 65.7 % Lymphocyte % 24.7 % Monocyte % 7.8 % Eosinophil % 0.2 % Basophils % 0.3 % Impression: 1. Patient with diffuse large B-cell lymphoma, germinal center subtype, presenting with CT evidence of left periaortic lymphadenopathy. By clinical evaluation his disease was at least stage III with IPI score 3. He underwent CT-directed needle biopsy of a left periaortic lymph node on 06/05/2019. 2. There was also PET/CT evidence of FDG avid left upper lobe pulmonary nodule, possibly indicative of extranodal lymphoma (stage IV) versus other primary malignancy. 3. He underwent treatment with 4 cycles of R-CHOP chemotherapy from 06/28/2019 thru 09/05/2019. He had evidence of very good response by restaging PET/CT after 2 cycles. 4. He had worsening memory loss and cognitive dysfunction following his third and fourth cycles of chemotherapy. He was then found by brain MRI on 09/20/2019 to have a large left frontal lobe brain mass. 5. He underwent craniotomy/excision of the brain mass on 09/24/2019 with pathology consistent with glioblastoma multiforme. His other medical illnesses include: 6. Hypertension. 7. Hyperlipidemia. 8. Hypothyroidism. 9. Degenerative arthritis. 10. He underwent abdominal aortic aneurysm repair with bifurcation graft in 2016. He had significant improvement in his neurologic symptoms following the surgery. On 10/31/2019 he began postoperative radiation concurrently with temozolomide chemotherapy. He completed radiation on 12/06/2019 to a total dose of 5400 cGy. Overall, he tolerated the treatment well, and he was able to continue the temozolomide with no dose reductions or interruptions. Recently has been showing some decline in performance status, mainly due to fatigue and anorexia. He continues to have some difficulty with balance and gait. His symptoms thus far have not improved significantly with an increase in his dexamethasone dosage, though he does complain of feeling a little jumpy on the higher steroid dosage. Plan: He will decrease the dexamethasone back to 4 mg daily. He will be scheduled for follow-up visit with repeat brain MRI in 2 weeks. Depending on the results, we will determine then whether to continue with the monthly temozolomide. Signed By: Murray Hoffman M.D. <<Signature on File>>
--- NOTE | 2020-01-07 08:38 | MR_ITS ---
WS: [id number] MRI BRAIN WITH AND WITHOUT CONTRAST HISTORY: BRAIN TUMOR, LYMPHOMA, status post radiation treatment and surgical excision. COMPARISON: 09/20/2019 and 09/25/2019 TECHNIQUE: Multiplanar imaging performed through the brain with Prohance 17 ml's IV. Significant improvement in the postsurgical changes in the LEFT frontal brain since 09/25/2019. Post o perative subdural collection with a maximum diameter of 8 mm over the LEFT frontal lobe significantly improved since 09/25/2019. There is marked improvement in the peritumoral edema and midline shift or mass effect. Less than 2 mm bowing of the midline structures to the RIGHT of midline. There is still a significant amount of edema which may be in part be postradiation. Postoperative collection in the center of the LEFT frontal lobe contains hemosiderin and necrosis with a maximum diameter 3.0 cm. On the post contrast imaging there are numerous foci of abnormal patchy enhancement at the resection site highly suspicious for additional tumor. There are numerous patchy areas of enhancement surroundi ng the postoperative cavity. The largest area measures 11 mm posterior and lateral to the resection c avity. There is an additional nodular enhancement extending towards the LEFT ventricle. No ependymal enhancement is identified. No hydrocephalus. Paranasal sinuses: Well aerated with no significant disease. Mastoid air cells: Normal. Calvarium and scalp: LEFT frontal craniectomy. MR/MR head wo/w con [id number] IMPRESSION: 1. Status post radiation therapy and surgical removal of the LEFT frontal lobe mass. 2. Postsurgical cavity with necrosis and volume loss involving the LEFT fronta l lobe. 3. Multifocal areas of enhancement surrounding the resection cavity suspicious for recurrent and/or residual tumor. The largest area measures 11 mm along the posterior lateral site. 4. No hydrocephalus or midline shift persisting. 5. Improving postoperative subdural collection over the LEFT frontal lobe.
[2020-01-07 08:57] LABS: Basophils % 0.2 %; Eosinophils % 0.8 %; Hematocrit 37.9 % (42.0-52.0); Hemoglobin 12.3 g/dL (11.7-16.6); Lymphocytes # 0.9 10^3/uL (0.8-4.8); Mean Corpuscular HGB Conc 32.5 g/dL (30.0-36.0); Mean Corpuscular Hemoglobin 31.9 pg (28.0-34.0); Mean Corpuscular Volume 98.2 fL (80-94); Monocytes # 0.4 10^3/uL (0.2-0.9); Monocytes % 7.3 %; Neutrophils # 3.5 10^3/uL (1.8-7.7); Neutrophils % 72.7 %; Nucleated Red Blood Cells % 0 %; Platelet Count 143 10^3/cmm (130-400); Red Blood Count 3.86 10^6/uL (4.1-5.3); Red Cell Distribution Width 14.8 % (12.1-15.1); White Blood Count 4.8 10^3/uL (4.0-10.0)
[2020-01-07 09:16] LABS: Alanine Aminotransferase 19 U/L (0-41); Albumin Level 4.2 g/dL (3.5-5.2); Alkaline Phosphatase 46 IU/L (40-130); Anion Gap 14.2 (5-19); Aspartate Amino Transferase 18 U/L (0-40); Blood Urea Nitrogen 17 mg/dL (8-23); Calcium 9.3 mg/dL (8.5-10.5); Carbon Dioxide 27 mmol/L (22-29); Chloride 110 mmol/L (98-107); Globulin 1.8 g/dL (1.3-4.6); Glucose 79 mg/dL (65-115); Lactate Dehydrogenase 177 U/L (135-225); Osmolality Calculated 299 mOsm/kg (285-295); Potassium 4.2 mmol/L (3.5-5.1); Sodium 147 mmol/L (136-145); Total Bilirubin 0.3 mg/dL (0.15-1.2)
--- NOTE | 2020-01-08 07:35 | ONC FU_ITS ---
Dr. Hoffman Patient Follow-Up Note Patient: Mauro Otero Unit #: [id number]: 1945 Dicatated By: Murray Hoffman M.D.Date of Visit:Jan 07, 2020 Onc Med Follow-up/Prog Note Chief Complaint: Lymphoma/glioblastoma multiforme. History of Present Illness: This is a 74-year-old man with diffuse large B-cell lymphoma, by clinical evaluation at least stage III and IPI at least 3. He has now been found to have glioblastoma multiforme involving the left frontal lobe of the brain. He has a known history of abdominal aortic aneurysm for which he underwent abdominal aortic aneurysm repair using bifurcation graft in 2016. On his surveillance CT angiogram in April 2019 he was incidentally noted to have left periaortic lymphadenopathy. He then underwent CT directed needle biopsy of the left periaortic lymph node on 06/05/2019. Pathology was consistent with diffuse large B-cell lymphoma. The tumor cells were noted to be positive for CD45, CD20, CD10, CD23, BCL-2, and BCL-6. They were negative for CD3, CD5, CD21, CD30, and cyclin D1. The staining pattern by IHC was found to be consistent with diffuse large B-cell lymphoma, germinal center type. I had seen him initially on 06/18/2019. Staging PET/CT on 06/23/2019 showed a 1.9 x 1.3 cm left upper lobe pulmonary nodule with SUV 23.8, consistent with extranodal disease. Also noted were FDG positive lymph nodes in the posterior mediastinum and left hilar region with SUVs up to 9.4. Bilateral retrocrural lymph nodes were also FDG positive. A complex retroperitoneal mass was noted to envelop the aortic aneurysm, roughly measuring 12.9 x 9.9 cm with SUV 34.4. There were positive mesenteric lymph nodes, consistent with lymphoma. His baseline echocardiogram showed normal left ventricular systolic function with ejection fraction estimated at 65%. With those findings and with relatively good performance status, he was recommended to undergo treatment with R-CHOP chemotherapy. He began cycle 1 of R-CHOP chemotherapy on 06/28/2019. He tolerated the treatment with acceptable toxicity. He was then able to continue with cycle 2 on 07/19/2019 and with cycle 3 on 08/09/2019. Restaging PET/CT on 09/01/2019 showed residual abdominal mass encasing the aorta measuring 8.6 x 8.7 cm but with only minimal FDG activity. Mediastinal lymph nodes were noted to be subcentimeter in size and FDG negative. Retrocrural and lymph nodes were also subcentimeter in size and FDG negative. The left upper lobe pulmonary nodule was noted to measure 1.0 cm and it was no longer clearly solid. It was entirely FDG negative. Overall, the findings were consistent with a near complete response to therapy (Deauville Criteria 2). At that point he had reported increased memory loss and cognitive dysfunction, which I had assumed that it was chemotherapy related. I had encouraged him, though, to complete a least 1 more cycle of treatment, and he then continued with cycle 4 of R-CHOP on 09/05/2019. His cognitive function continued to worsen fairly dramatically. He then had evaluation with head MRI on 09/20/2019. It showed a large heterogeneously enhancing left frontal mass measuring 7.1 x 3.3 x 5.5 cm. There was a large amount of surrounding edema and there was associated left to right midline shift measuring 1.7 cm. Enhancement was noted to extend to the ventricular surface and cortical surface, suspicious for leptomeningeal spread of disease. There was effacement of the left lateral ventricle and partial effacement of the right lateral ventricle. He was transferred to [facility] for admission and on 09/24/2019 he underwent left frontal craniotomy with resection of the tumor. Pathology was consistent with glioblastoma multiforme. He tolerated the surgery well. He subsequently was transferred to the [facility] rehab facility in [place]. He returned home on 10/10/2019. He was then seen here for postoperative chemoradiation. His other medical illnesses, in addition to the abdominal aortic aneurysm, include hypertension, hyperlipidemia, hypothyroidism, and degenerative arthritis. He is a non-smoker. INTERIM HISTORY: He began radiation, concurrently with temozolomide chemotherapy on 10/31/2019. Prior to that, he had recurrence of [employer] symptoms after being tapered off dexamethasone, and I did have him restart it at 4 mg daily. His symptoms did improve, and during subsequent follow-up he was able to tolerate the temozolomide with no apparent adverse effects. He completed radiation on 12/06/2019 to a total dose of 5400 cGy. At that point his dexamethasone dosage was further tapered to 1 mg daily, but subsequently increased back to 2 mg daily. Repeat brain MRI on 01/07/2020 showed significant improvement in the postsurgical changes in the left frontal lobe compared to the 09/25/2019 visit. A postoperative subdural collection over the left frontal lobe had a maximum diameter of 8 mm, significantly improved. There was marked improvement in the peritumoral edema and midline shift or mass-effect. There was still a significant amount of residual edema which was felt to be in part post radiation. A postoperative collection in the center of the left frontal lobe was noted to contain hemosiderin and necrosis with a maximum diameter of 3.0 cm. On the postcontrast imaging there were numerous foci of abnormal patchy enhancement at the resection site, felt to be highly suspicious for additional tumor. Also noted were numerous patchy areas of enhancement surrounding the postoperative cavity, the largest located posterior and lateral to the resection cavity measuring 11 mm. There was additional nodular enhancement extending towards the left ventricle. He is seen for a followup visit. He still has limited activity, as he does tire easily. He also complains that he is a little shaky. He has difficulty with balance, but he is up and around pretty well at home. He does just a little bit of light work. His ECOG score is 2. His appetite is not as good as it had been, but his weight is stable. He does not have fever or night sweats. He has no shortness of breath, cough, or chest pain. He has no GI or complaints. He has pain in his left knee and in his left foot, but that is not new. He does not complain of headache, and he has no focal neurologic symptoms. Medications: Levothyroxine Sodium 1 Tablet (of 50 mcg) Oral daily, Meloxicam 1 Tablet (of 15 mg) Oral daily, [place]-3 Fatty Acids 1 Capsule (of 1000 mg) Oral daily, Ondansetron 1 Tablet (of 8 mg) Tablet Dispersable Oral t.i.d. PRN, Senna 2 Capsule (of 8.6 mg) Oral b.i.d. PRN, Simvastatin 1 Tablet (of 40 mg) Oral daily, Temozolomide (5 mg) Capsule Oral Take as Directed, traZODone HCl 1 - 2 Tablet (of 50 mg) Oral at bedtime, Vitamin D3 1 Tablet (of 1500 Units) Oral daily Allergies: No Known Allergies. Review of Systems: Constitutional - He is feeling good. He has good energy, but he tries easily. He does a little bit of light work around the house. His appetite is improved and weight is stable. No fever, night sweats, or hot flashes. ECOG score is 2, ENMT - No sinus congestion/drainage. No mouth sores. No sore throat or difficulty swallowing, Hematologic/Lymphatic - No abnormal bruising or bleeding, Respiratory - No shortness of breath. No cough. No pleuritic pain or hemoptysis, Cardiovascular - No angina pain. No palpitations, Gastrointestinal - No nausea or vomiting. No heartburn or acid reflux. No diarrhea or constipation. No blood in the stool or black stools, Genitourinary (M) - No dysuria or hematuria. No urinary frequency. No urgency or incontinence, Musculoskeletal - He has pain in his left knee and in his left foot, Integumentary - No skin complications, Neurologic - No headache. He continues to have some alteration his balance. No numbness or tingling. No other focal neurologic symptoms, Psychiatric - No anxiety or depression. He sleeps well for the most part. Vital Signs: Performed on Jan 07, 2020 10:15 Height - 71.00 in Weight - 196.0 lbs (LOW) BSA - 2.09 sq.m BMI - 27.34 Temperature - 97.6 F (LOW) Pulse - 54 /min (LOW) Respiration - 24 /min BP - 150/96 mm(hg) (HIGH) O2 Sat - 99 % Pain - 0 Physical Examination: Constitutional - He looks pretty good generally, Eyes - Sclerae nonicteric. Conjunctivae clear, ENMT - No lesions noted in the oral cavity, Hematologic/Lymphatic - No cervical, clavicular, or axillary adenopathy, Respiratory - Lungs are clear with good air movement bilaterally, Cardiovascular - Heart rhythm is regular. There is no murmur, gallop, or rub noted, Abdomen - Soft. Liver and spleen are not enlarged. There is no abdominal mass or ascites noted and there is no inguinal adenopathy, Extremities - No edema, Neurologic - He has postural instability. He has pretty good muscle strength. He does not appear to have any focal neurologic deficit. Lab/Imaging: Test performed on Jan 07, 2020 08:25 LDH (Total) 177 U/L Sodium 147 mmol/L Potassium 4.2 mmol/L Chloride 110 mmol/L CO2 27 mmol/L Anion Gap 14.2 BUN 17 mg/dL Creatinine 0.8 mg/dL Cr Clearance (Est) 101.4000 mL/min Glucose 79 mg/dL Calcium 9.3 mg/dL Protein, Total 6.0 g/dL Albumin 4.2 g/dL Globulin 1.8 g/dL Bilirubin, Total 0.3 mg/dL ALT (SGPT) 19 U/L AST (SGOT) 18 U/L Alkaline Phosphatase 46 IU/L WBC 4.8 10 3/uL RBC 3.86 10 6/uL HGB 12.3 g/dL HCT 37.9 % MCV 98.2 fL MCH 31.9 pg MCHC 32.5 g/dL RDW 14.8 % Platelet Count 143 10 3/cmm MPV 9.0 fL Neutrophils 3.5 10 3/uL Lymphocytes 0.9 10 3/uL Monocytes 0.4 10 3/uL Eosinophils 0.0 10 3/uL Basophils 0.0 10 3/uL Neutrophil % 72.7 % Lymphocyte % 18.0 % Monocyte % 7.3 % Eosinophil % 0.8 % Basophils % 0.2 % NRBC % 0 % Impression: 1. Patient with diffuse large B-cell lymphoma, germinal center subtype, presenting with CT evidence of left periaortic lymphadenopathy. By clinical evaluation his disease was at least stage III with IPI score 3. He underwent CT-directed needle biopsy of a left periaortic lymph node on 06/05/2019. 2. There was also PET/CT evidence of FDG avid left upper lobe pulmonary nodule, possibly indicative of extranodal lymphoma (stage IV) versus other primary malignancy. 3. He underwent treatment with 4 cycles of R-CHOP chemotherapy from 06/28/2019 thru 09/05/2019. He had evidence of very good response by restaging PET/CT after 2 cycles. 4. He had worsening memory loss and cognitive dysfunction following his third and fourth cycles of chemotherapy. He was then found by brain MRI on 09/20/2019 to have a large left frontal lobe brain mass. 5. He underwent craniotomy/excision of the brain mass on 09/24/2019 with pathology consistent with glioblastoma multiforme. His other medical illnesses include: 6. Hypertension. 7. Hyperlipidemia. 8. Hypothyroidism. 9. Degenerative arthritis. 10. He underwent abdominal aortic aneurysm repair with bifurcation graft in 2016. He had significant improvement in his neurologic symptoms following the surgery. On 10/31/2019 he began postoperative radiation concurrently with temozolomide chemotherapy. He completed radiation on 12/06/2019 to a total dose of 5400 cGy. Overall, he tolerated the treatment well, and he was able to continue the temozolomide with no dose reductions or interruptions. At that point I had attempted to reduce the dexamethasone to 1 mg daily, but he did not seem to tolerate it, and the dosage was then increased back to 2 mg daily. His repeat brain MRI on 01/07/2020 showed residual postoperative collection containing hemosiderin and necrosis in the left frontal lobe with a maximum diameter of 3.0 cm. There was some residual edema and there were foci of abnormal patchy enhancement at the resection site which were felt to be highly suspicious for residual tumor. Overall, though, there was dramatic improvement in the appearance of the left frontal lobe compared to the pretreatment study. Plan: He will now begin his first of 6 planned cycles of monthly temozolomide, administered days 1 through 5 at 150 mg/m??? daily. He is to take the dosage at bedtime, and he is to take ondansetron 30 minutes prior to each dosage. Patient and family are advised that he may experience worsening fatigue and/or anorexia with the treatment. He will be scheduled for a follow-up visit in 4 weeks. In the meantime, I also am going to schedule restaging PET/CT for the lymphoma, as he is also at risk for recurrence/progression of that disease. Signed By: Murray Hoffman M.D. <<Signature on File>>
== END 2020-01-15 23:59 | disposition home or self-care (01) ==
LOC: RADSHAW 08:45
PROVIDERS: Absent Provider Radiology Radiation Oncology; PCP Family Medicine; Visit Provider Internal Medicine Medical Oncology
DX: C71.1 Malignant neoplasm of frontal lobe (principal); C83.33 Diffuse large B-cell lymphoma, intra-abdominal lymph nodes; I10 Essential (primary) hypertension; E78.5 Hyperlipidemia, unspecified; M19.90 Unspecified osteoarthritis, unspecified site; Z92.3 Personal history of irradiation; Z79.899 Other long term (current) drug therapy; Z98.890 Other specified postprocedural states
CPT/HCPCS: 36415; 70553; 80053; 83615; 85025; 99214; A9579; G0463

== ENCOUNTER 2020-02-06 07:06 | Outpatient (RCR) | payer MEDICARE, OTHER, SELFPAY ==
[2020-02-06 09:07] LABS: Eosinophils % 0.3 %; Hematocrit 39.9 % (42.0-52.0); Hemoglobin 12.7 g/dL (11.7-16.6); Lymphocytes % 28.6 %; Mean Corpuscular HGB Conc 31.8 g/dL (30.0-36.0); Mean Corpuscular Hemoglobin 31.8 pg (28.0-34.0); Mean Corpuscular Volume 99.8 fL (80-94); Monocytes # 0.3 10^3/uL (0.2-0.9); Monocytes % 10.1 %; Neutrophils # 2.02 10^3/uL (1.8-7.7); Neutrophils % 60.1 %; Nucleated Red Blood Cells % 0 %; Platelet Count 110 10^3/cmm (130-400); Red Cell Distribution Width 14.4 % (12.1-15.1); White Blood Count 3.4 10^3/uL (4.0-10.0)
[2020-02-06 09:19] LABS: Alanine Aminotransferase 30 U/L (0-41); Albumin Level 4.2 g/dL (3.5-5.2); Alkaline Phosphatase 42 IU/L (40-130); Aspartate Amino Transferase 21 U/L (0-40); Blood Urea Nitrogen 17 mg/dL (8-23); Calcium 9.2 mg/dL (8.5-10.5); Carbon Dioxide 26 mmol/L (22-29); Chloride 108 mmol/L (98-107); Globulin 1.9 g/dL (1.3-4.6); Glucose 73 mg/dL (65-115); Osmolality Calculated 293 mOsm/kg (285-295); Sodium 144 mmol/L (136-145); Total Bilirubin 0.6 mg/dL (0.15-1.2); Total Protein 6.1 g/dL (6.6-8.7)
[2020-02-06 09:38] LABS: Anion Gap 13.7 (5-19); Lactate Dehydrogenase 217 U/L (135-225); Potassium 3.7 mmol/L (3.5-5.1)
--- NOTE | 2020-02-07 06:42 | ONC FU_ITS ---
Dr. Hoffman Patient Follow-Up Note Patient: Mauro Otero Unit #: [id number]: 1945 Dicatated By: Murray Hoffman M.D.Date of Visit:Feb 06, 2020 Onc Med Follow-up/Prog Note Chief Complaint: Lymphoma/glioblastoma multiforme. History of Present Illness: This is a 74-year-old man with diffuse large B-cell lymphoma, by clinical evaluation at least stage III and IPI at least 3. He subsequently was found to have glioblastoma multiforme involving the left frontal lobe of the brain. He has a known history of abdominal aortic aneurysm for which he underwent abdominal aortic aneurysm repair using bifurcation graft in 2016. On his surveillance CT angiogram in April 2019 he was incidentally noted to have left periaortic lymphadenopathy. He then underwent CT directed needle biopsy of the left periaortic lymph node on 06/05/2019. Pathology was consistent with diffuse large B-cell lymphoma. The tumor cells were noted to be positive for CD45, CD20, CD10, CD23, BCL-2, and BCL-6. They were negative for CD3, CD5, CD21, CD30, and cyclin D1. The staining pattern by IHC was found to be consistent with diffuse large B-cell lymphoma, germinal center type. I had seen him initially on 06/18/2019. Staging PET/CT on 06/23/2019 showed a 1.9 x 1.3 cm left upper lobe pulmonary nodule with SUV 23.8, consistent with extranodal disease. Also noted were FDG positive lymph nodes in the posterior mediastinum and left hilar region with SUVs up to 9.4. Bilateral retrocrural lymph nodes were also FDG positive. A complex retroperitoneal mass was noted to envelop the aortic aneurysm, roughly measuring 12.9 x 9.9 cm with SUV 34.4. There were positive mesenteric lymph nodes, consistent with lymphoma. His baseline echocardiogram showed normal left ventricular systolic function with ejection fraction estimated at 65%. With those findings and with relatively good performance status, he was recommended to undergo treatment with R-CHOP chemotherapy. He began cycle 1 of R-CHOP chemotherapy on 06/28/2019. He tolerated the treatment with acceptable toxicity. He was then able to continue with cycle 2 on 07/19/2019 and with cycle 3 on 08/09/2019. Restaging PET/CT on 09/01/2019 showed residual abdominal mass encasing the aorta measuring 8.6 x 8.7 cm but with only minimal FDG activity. Mediastinal lymph nodes were noted to be subcentimeter in size and FDG negative. Retrocrural and lymph nodes were also subcentimeter in size and FDG negative. The left upper lobe pulmonary nodule was noted to measure 1.0 cm and it was no longer clearly solid. It was entirely FDG negative. Overall, the findings were consistent with a near complete response to therapy (Deauville Criteria 2). At that point he had reported increased memory loss and cognitive dysfunction, which I had assumed that it was chemotherapy related. I had encouraged him, though, to complete a least 1 more cycle of treatment, and he then continued with cycle 4 of R-CHOP on 09/05/2019. His cognitive function continued to worsen fairly dramatically. He then had evaluation with head MRI on 09/20/2019. It showed a large heterogeneously enhancing left frontal mass measuring 7.1 x 3.3 x 5.5 cm. There was a large amount of surrounding edema and there was associated left to right midline shift measuring 1.7 cm. Enhancement was noted to extend to the ventricular surface and cortical surface, suspicious for leptomeningeal spread of disease. There was effacement of the left lateral ventricle and partial effacement of the right lateral ventricle. He was transferred to [facility] for admission and on 09/24/2019 he underwent left frontal craniotomy with resection of the tumor. Pathology was consistent with glioblastoma multiforme. He tolerated the surgery well. He subsequently was transferred to the [facility] rehab facility in [place]. He returned home on 10/10/2019. He was then seen here for postoperative chemoradiation. His other medical illnesses, in addition to the abdominal aortic aneurysm, include hypertension, hyperlipidemia, hypothyroidism, and degenerative arthritis. He is a non-smoker. INTERIM HISTORY: He began radiation, concurrently with temozolomide chemotherapy on 10/31/2019. Prior to that, he had recurrence of [employer] symptoms after being tapered off dexamethasone, and I did have him restart it at 4 mg daily. His symptoms did improve, and during subsequent follow-up he was able to tolerate the temozolomide with no apparent adverse effects. He completed radiation on 12/06/2019 to a total dose of 5400 cGy. At that point his dexamethasone dosage was further tapered to 1 mg daily, but subsequently increased back to 2 mg daily. Repeat brain MRI on 01/07/2020 showed significant improvement in the postsurgical changes in the left frontal lobe compared to the 09/25/2019 visit. A postoperative subdural collection over the left frontal lobe had a maximum diameter of 8 mm, significantly improved. There was marked improvement in the peritumoral edema and midline shift or mass-effect. There was still a significant amount of residual edema which was felt to be in part post radiation. A postoperative collection in the center of the left frontal lobe was noted to contain hemosiderin and necrosis with a maximum diameter of 3.0 cm. On the postcontrast imaging there were numerous foci of abnormal patchy enhancement at the resection site, felt to be highly suspicious for additional tumor. Also noted were numerous patchy areas of enhancement surrounding the postoperative cavity, the largest located posterior and lateral to the resection cavity measuring 11 mm. There was additional nodular enhancement extending towards the left ventricle. With that finding he began his 1st of 6 planned cycles of monthly temozolamide at 150 mg/m??? daily for 5 days. He tolerated it without acute toxicity. A restaging PET/CT on 01/12/2020 showed further regression in the size of the mass which was previously encasing the abdominal aortic aneurysm. On the current study the mass was present as discrete, and large nodes without FDG activity indicative of ongoing positive response to therapy. There was no evidence of recurrence of mediastinal or abdominal adenopathy or of the left upper lobe pulmonary nodule. He is seen for a followup visit. Over the weekend he had increased dexamethasone to 4 mg daily, has his symptoms have begun to worsen again with increased weakness/fatigue and decreased appetite. He has been sleeping more and family noted that his memory was getting worse again. The increase in the dexamethasone dosage did not seem to have a significant impact on his symptoms. He did opt to go ahead and start his 2nd cycle of monthly temozolomide at 150 mg/m??? daily for 5 days. He complains that he feels a little shaky. He says he is really tired and that he sleeps a lot. Appetite is still not very good. He has limited activity. ECOG score is 2. He has not had fever or night sweats. He says he feels cold all the time. He has no shortness of breath, cough, or chest pain. He has no GI or complaints. He has no significant joint or bone pain. He does not complain of headache. He does have a little trouble with balance. He has no numbness/tingling or other focal neurologic symptoms. Medications: Dexamethasone 1 Tablet (of 4 mg) Oral, Levothyroxine Sodium 1 Tablet (of 50 mcg) Oral daily, Meloxicam 1 Tablet (of 15 mg) Oral daily, Davenport-3 Fatty Acids 1 Capsule (of 1200 mg) Oral daily, Ondansetron 1 Tablet (of 8 mg) Tablet Dispersable Oral t.i.d. PRN, Senna 2 Capsule (of 8.6 mg) Oral b.i.d. PRN, Simvastatin 1 Tablet (of 40 mg) Oral daily, Temozolomide (5 mg) Capsule Oral Take as Directed, traZODone HCl 1 - 2 Tablet (of 50 mg) Oral at bedtime, Vitamin D3 1 Tablet (of 1500 Units) Oral daily Allergies: No Known Allergies. Review of Systems: Constitutional - She is feeling weak and shaky and his enery is lower. He has been sleeping more during the day, and his memory has gotten worse again. His appetite has decreased, but his weight is stable. No fever, night sweats, or hot flashes. ECOG score is 2, ENMT - No sinus congestion/drainage. No mouth sores. No sore throat or difficulty swallowing, Hematologic/Lymphatic - No abnormal bruising or bleeding, Respiratory - No shortness of breath. No cough. No pleuritic pain or hemoptysis, Cardiovascular - No angina pain. No palpitations, Gastrointestinal - No nausea or vomiting. No heartburn or acid reflux. No diarrhea or constipation. No blood in the stool or black stools, Genitourinary (M) - No dysuria or hematuria. No urinary frequency. No urgency or incontinence, Musculoskeletal - No joint or bone pain, Integumentary - No skin complications, Neurologic - No headache. He has been feeling dizziness/off balance. No numbness or tingling. No other focal neurologic symptoms, Psychiatric - He has some anxiety. His feels that he is more depressed. No insomnia. Vital Signs: Performed on Feb 06, 2020 09:53 Height - 71.00 in Weight - 197.0 lbs (HIGH) BSA - 2.10 sq.m BMI - 27.48 Temperature - 97.9 F (LOW) Pulse - 61 /min Respiration - 22 /min BP - 142/84 mm(hg) (HIGH) O2 Sat - 100 % Pain - 6 Physical Examination: Constitutional - He appears somewhat weak generally, Eyes - Sclerae nonicteric. Conjunctivae clear, ENMT - No lesions noted in the oral cavity, Hematologic/Lymphatic - No cervical, clavicular, or axillary adenopathy, Respiratory - Lungs are clear with good air movement bilaterally, Cardiovascular - Heart rhythm is regular. There is no murmur, gallop, or rub noted, Abdomen - Soft. Liver and spleen are not enlarged. There is no abdominal mass or ascites noted and there is no inguinal adenopathy, Extremities - No edema, Neurologic - He has postural instability, and he has somewhat of a shuffling gait. There is some weakness in the proximal leg musculature. It is slightly worse on the right. He otherwise does not appear to have any focal neurologic deficit. Lab/Imaging: Test performed on Feb 06, 2020 08:45 LDH (Total) 217 U/L Sodium 144 mmol/L Potassium 3.7 mmol/L Chloride 108 mmol/L CO2 26 mmol/L Anion Gap 13.7 BUN 17 mg/dL Creatinine 0.7 mg/dL Cr Clearance (Est) 115.8900 mL/min Glucose 73 mg/dL Calcium 9.2 mg/dL Protein, Total 6.1 g/dL Albumin 4.2 g/dL Globulin 1.9 g/dL Bilirubin, Total 0.6 mg/dL ALT (SGPT) 30 U/L AST (SGOT) 21 U/L Alkaline Phosphatase 42 IU/L WBC 3.4 10 3/uL RBC 4.00 10 6/uL HGB 12.7 g/dL HCT 39.9 % MCV 99.8 fL MCH 31.8 pg MCHC 31.8 g/dL RDW 14.4 % Platelet Count 110 10 3/cmm MPV 9.0 fL Neutrophils 2.02 10 3/uL Lymphocytes 1.0 10 3/uL Monocytes 0.3 10 3/uL Eosinophils 0.0 10 3/uL Basophils 0.0 10 3/uL Neutrophil % 60.1 % Lymphocyte % 28.6 % Monocyte % 10.1 % Eosinophil % 0.3 % Basophils % 0.0 % NRBC % 0 % Impression: 1. Patient with diffuse large B-cell lymphoma, germinal center subtype, presenting with CT evidence of left periaortic lymphadenopathy. By clinical evaluation his disease was at least stage III with IPI score 3. He underwent CT-directed needle biopsy of a left periaortic lymph node on 06/05/2019. 2. There was also PET/CT evidence of FDG avid left upper lobe pulmonary nodule, possibly indicative of extranodal lymphoma (stage IV) versus other primary malignancy. 3. He underwent treatment with 4 cycles of R-CHOP chemotherapy from 06/28/2019 thru 09/05/2019. He had evidence of very good response by restaging PET/CT after 2 cycles. 4. He had worsening memory loss and cognitive dysfunction following his third and fourth cycles of chemotherapy. He was then found by brain MRI on 09/20/2019 to have a large left frontal lobe brain mass. 5. He underwent craniotomy/excision of the brain mass on 09/24/2019 with pathology consistent with glioblastoma multiforme. His other medical illnesses include: 6. Hypertension. 7. Hyperlipidemia. 8. Hypothyroidism. 9. Degenerative arthritis. 10. He underwent abdominal aortic aneurysm repair with bifurcation graft in 2016. He had significant improvement in his neurologic symptoms following the surgery. On 10/31/2019 he began postoperative radiation concurrently with temozolomide chemotherapy. He completed radiation on 12/06/2019 to a total dose of 5400 cGy. Overall, he tolerated the treatment well, and he was able to continue the temozolomide with no dose reductions or interruptions. At that point I had attempted to reduce the dexamethasone to 1 mg daily, but he did not seem to tolerate it, and the dosage was then increased back to 2 mg daily. His repeat brain MRI on 01/07/2020 showed residual postoperative collection containing hemosiderin and necrosis in the left frontal lobe with a maximum diameter of 3.0 cm. There was some residual edema and there were foci of abnormal patchy enhancement at the resection site which were felt to be highly suspicious for residual tumor. Overall, though, there was dramatic improvement in the appearance of the left frontal lobe compared to the pretreatment study. He then began cycle 1 of monthly temozolamide at 150 mg/m??? daily for 5 days. His restagin PET/CT on 01/12/20 showed further decrease in para-aortic mass with no areas of abnormal FDG uptake, consistent with positive response to therapy. He tolerated the 1st cycle of monthly temozolamide without acute toxicity. Since then he has had decline in performance status and some decline in cognitive function. It is uncertain to what extent those symtoms may be related to the brain tumor or to treatment. He also has some proximal muscle weakness, which may be steroid-related. Plan: He will continue with his 2nd of 6 planned cycles of monthly temozolomide. The dosage and schedule remains the same. He will be scheduled for a followup visit with restaging brain MRI in 4 weeks. In the meantime, he will try decreasing dexamethasone to 2 mg daily. Signed By: Murray Hoffman M.D. <<Signature on File>>
== END 2020-02-15 23:59 | disposition home or self-care (01) ==
LOC: ONCMED 07:06
PROVIDERS: PCP Family Medicine; Visit Provider Internal Medicine Medical Oncology
DX: C71.1 Malignant neoplasm of frontal lobe (principal); E78.5 Hyperlipidemia, unspecified; I10 Essential (primary) hypertension; E03.9 Hypothyroidism, unspecified; C83.33 Diffuse large B-cell lymphoma, intra-abdominal lymph nodes; Z79.899 Other long term (current) drug therapy; Z79.52 Long term (current) use of systemic steroids; M62.81 Muscle weakness (generalized); Z92.3 Personal history of irradiation
CPT/HCPCS: 80053; 83615; 85025; 99214

== ENCOUNTER 2020-03-03 08:56 | Outpatient (CLI) | payer MEDICARE, OTHER, SELFPAY ==
--- NOTE | 2020-03-03 09:20 | MR_ITS ---
WS: [id number] MRI HEAD WITH CONTRAST TECHNIQUE: Sagittal T1, T2 axial, T2 axial FLAIR, axial susceptibility weighted imaging, axial diffus ion weighted images, and coronal T2 images were obtained. Pre and post-T1 axial and post T1 coronal i mages. ADC and FSPGR images. CLINICAL INFORMATION: FOLLOW-UP GLIOMA COMPARISON: MRI January 07, 2020 and additional MRIs September 2019 FINDINGS: Prior postoperative changes left frontal craniotomy with tumor resection. Resection cavity left front al lobe. No significant mass effect or midline shift. Blood products within the resection cavity. Res ection cavity is improved compared to the prior examination with decreased blood products. No signifi cant mass effect or midline shift. No hydrocephalus. Increased periventricular white matter changes c onsistent with radiation therapy. Decreased patchy foci of enhancement about the resection cavity. Sm all amount of patchy enhancement about the dorsal and inferior margins of the resection cavity. No ev idence of disease progression. Normal posterior fossa. Normal vascular flow voids at the skull base. No extra-axial fluid collection s. Paranasal sinuses and mastoid air cells well aerated. No restricted diffusion to suggest acute isc hemia. MR/MR head wo/w con [id number] IMPRESSION: 1. Prior postoperative changes left frontal resection cavity for tumor resecti on. 2. No evidence of tumor progression. No increasing edema or mass effect. 3. Improved resection cavity with decreasing blood products. 4. Improved enhancement about the resection cavity likely due to treatment-rel ated changes 5. Patchy enhancement along the dorsal superior margin and inferior lateral ma rgin resection cavity. This is stable compared to previous. Recommend 3 month f ollow-up 6. Improved subdural collection overlying the left frontal lobe. 7. Increasing periventricular white matter changes consistent with treatment-r elated effect
== END 2020-03-03 08:57 | disposition home or self-care (01) ==
LOC: RADWPI 09:06
PROVIDERS: Family Provider Family Medicine; PCP Family Medicine; Visit Provider Internal Medicine Medical Oncology
DX: C71.9 Malignant neoplasm of brain, unspecified (principal)
CPT/HCPCS: 70553; A9579

== ENCOUNTER 2020-03-05 06:04 | Outpatient (RCR) | payer MEDICARE, OTHER, SELFPAY ==
[2020-03-05 12:12] LABS: Basophils % 0.3 %; Eosinophils % 0.3 %; Hematocrit 38.6 % (42.0-52.0); Hemoglobin 12.7 g/dL (11.7-16.6); Lymphocytes # 0.8 10^3/uL (0.8-4.8); Lymphocytes % 24.5 %; Mean Corpuscular HGB Conc 32.9 g/dL (30.0-36.0); Mean Corpuscular Hemoglobin 32.9 pg (28.0-34.0); Mean Platelet Volume 8.7 fL (7.4-10.4); Monocytes # 0.4 10^3/uL (0.2-0.9); Neutrophils # 2.01 10^3/uL (1.8-7.7); Nucleated Red Blood Cells % 0 %; Platelet Count 101 10^3/cmm (130-400); Red Blood Count 3.86 10^6/uL (4.1-5.3); Red Cell Distribution Width 14.6 % (12.1-15.1); White Blood Count 3.2 10^3/uL (4.0-10.0)
[2020-03-05 12:33] LABS: Alanine Aminotransferase 32 U/L (0-41); Albumin Level 4.1 g/dL (3.5-5.2); Alkaline Phosphatase 45 IU/L (40-130); Anion Gap 11.1 (5-19); Aspartate Amino Transferase 20 U/L (0-40); Blood Urea Nitrogen 19 mg/dL (8-23); Calcium 9.2 mg/dL (8.5-10.5); Carbon Dioxide 27 mmol/L (22-29); Chloride 109 mmol/L (98-107); Globulin 2.3 g/dL (1.3-4.6); Glucose 99 mg/dL (65-115); Lactate Dehydrogenase 210 U/L (135-225); Osmolality Calculated 293 mOsm/kg (285-295); Potassium 4.1 mmol/L (3.5-5.1); Sodium 143 mmol/L (136-145); Total Bilirubin 0.4 mg/dL (0.15-1.2); Total Protein 6.4 g/dL (6.6-8.7)
--- NOTE | 2020-03-05 21:22 | ONC FU_ITS ---
Dr. Hoffman Patient Follow-Up Note Patient: Mauro Otero Unit #: [id number]: 1945 Dicatated By: Murray Hoffman M.D.Date of Visit:Mar 05, 2020 Onc Med Follow-up/Prog Note Chief Complaint: Lymphoma/glioblastoma multiforme. History of Present Illness: This is a 74-year-old man with diffuse large B-cell lymphoma, by clinical evaluation at least stage III and IPI at least 3. He subsequently was found to have glioblastoma multiforme involving the left frontal lobe of the brain. He has a known history of abdominal aortic aneurysm for which he underwent abdominal aortic aneurysm repair using bifurcation graft in 2016. On his surveillance CT angiogram in April 2019 he was incidentally noted to have left periaortic lymphadenopathy. He then underwent CT directed needle biopsy of the left periaortic lymph node on 06/05/2019. Pathology was consistent with diffuse large B-cell lymphoma. The tumor cells were noted to be positive for CD45, CD20, CD10, CD23, BCL-2, and BCL-6. They were negative for CD3, CD5, CD21, CD30, and cyclin D1. The staining pattern by IHC was found to be consistent with diffuse large B-cell lymphoma, germinal center type. I had seen him initially on 06/18/2019. Staging PET/CT on 06/23/2019 showed a 1.9 x 1.3 cm left upper lobe pulmonary nodule with SUV 23.8, consistent with extranodal disease. Also noted were FDG positive lymph nodes in the posterior mediastinum and left hilar region with SUVs up to 9.4. Bilateral retrocrural lymph nodes were also FDG positive. A complex retroperitoneal mass was noted to envelop the aortic aneurysm, roughly measuring 12.9 x 9.9 cm with SUV 34.4. There were positive mesenteric lymph nodes, consistent with lymphoma. His baseline echocardiogram showed normal left ventricular systolic function with ejection fraction estimated at 65%. With those findings and with relatively good performance status, he was recommended to undergo treatment with R-CHOP chemotherapy. He began cycle 1 of R-CHOP chemotherapy on 06/28/2019. He tolerated the treatment with acceptable toxicity. He was then able to continue with cycle 2 on 07/19/2019 and with cycle 3 on 08/09/2019. Restaging PET/CT on 09/01/2019 showed residual abdominal mass encasing the aorta measuring 8.6 x 8.7 cm but with only minimal FDG activity. Mediastinal lymph nodes were noted to be subcentimeter in size and FDG negative. Retrocrural and lymph nodes were also subcentimeter in size and FDG negative. The left upper lobe pulmonary nodule was noted to measure 1.0 cm and it was no longer clearly solid. It was entirely FDG negative. Overall, the findings were consistent with a near complete response to therapy (Deauville Criteria 2). At that point he had reported increased memory loss and cognitive dysfunction, which I had assumed that it was chemotherapy related. I had encouraged him, though, to complete a least 1 more cycle of treatment, and he then continued with cycle 4 of R-CHOP on 09/05/2019. His cognitive function continued to worsen fairly dramatically. He then had evaluation with head MRI on 09/20/2019. It showed a large heterogeneously enhancing left frontal mass measuring 7.1 x 3.3 x 5.5 cm. There was a large amount of surrounding edema and there was associated left to right midline shift measuring 1.7 cm. Enhancement was noted to extend to the ventricular surface and cortical surface, suspicious for leptomeningeal spread of disease. There was effacement of the left lateral ventricle and partial effacement of the right lateral ventricle. He was transferred to [facility] for admission and on 09/24/2019 he underwent left frontal craniotomy with resection of the tumor. Pathology was consistent with glioblastoma multiforme. He tolerated the surgery well. He subsequently was transferred to the [facility] rehab facility in [place]. He returned home on 10/10/2019. He was then seen here for postoperative chemoradiation. His other medical illnesses, in addition to the abdominal aortic aneurysm, include hypertension, hyperlipidemia, hypothyroidism, and degenerative arthritis. He is a non-smoker. INTERIM HISTORY: He began radiation, concurrently with temozolomide chemotherapy on 10/31/2019. Prior to that, he had recurrence of MUSEUM HOST/HOSTESS symptoms after being tapered off dexamethasone, and I did have him restart it at 4 mg daily. His symptoms did improve, and during subsequent follow-up he was able to tolerate the temozolomide with no apparent adverse effects. He completed radiation on 12/06/2019 to a total dose of 5400 cGy. At that point his dexamethasone dosage was further tapered to 1 mg daily, but subsequently increased back to 2 mg daily. Repeat brain MRI on 01/07/2020 showed significant improvement in the postsurgical changes in the left frontal lobe compared to the 09/25/2019 visit. A postoperative subdural collection over the left frontal lobe had a maximum diameter of 8 mm, significantly improved. There was marked improvement in the peritumoral edema and midline shift or mass-effect. There was still a significant amount of residual edema which was felt to be in part post radiation. A postoperative collection in the center of the left frontal lobe was noted to contain hemosiderin and necrosis with a maximum diameter of 3.0 cm. On the postcontrast imaging there were numerous foci of abnormal patchy enhancement at the resection site, felt to be highly suspicious for additional tumor. Also noted were numerous patchy areas of enhancement surrounding the postoperative cavity, the largest located posterior and lateral to the resection cavity measuring 11 mm. There was additional nodular enhancement extending towards the left ventricle. With that finding he began his 1st of 6 planned cycles of monthly temozolamide at 150 mg/m??? daily for 5 days. He tolerated it without acute toxicity. A restaging PET/CT on 01/12/2020 showed further regression in the size of the mass which was previously encasing the abdominal aortic aneurysm. It was noted to be present discrete, enlarged nodes without FDG activity, indicative of ongoing positive response to therapy. There was no evidence of recurrence of mediastinal or abdominal adenopathy or of the left upper lobe pulmonary nodule. At his follow-up visit on 02/06/2020 he appeared to have some decline in his performance status and in his cognitive function. However, with the improvement in his MRI, we did opt to proceed with a second cycle of temozolomide. His repeat brain MRI on 03/03/2020 showed postoperative resection cavity for left frontal tumor resection. There was no increasing edema or mass effect or other evidence of tumor progression. There was improved appearance of the resection cavity with decreasing blood products, and there was improved enhancement about the resection cavity likely due to treatment-related changes. Also noted was improved subdural collection overlying the left frontal lobe. There was increasing periventnricular white matter changes consistent with treatment-related side effects. Patchy enhancement along the dorsal superior margin and inferior lateral margin resection cavity appeared stable. He is seen for a followup visit. His family indicates that he has continued to go downhill, as he has been getting progressively weaker and he has had further decline in his activity tolerance. His ECOG score is 3. He is also losing appetite. His weight is down 3 pounds. He does not have fever or night sweats. He does not complain of shortness of breath, cough, or chest pain. He has no GI or complaints. He has pain in his left knee and left ankle. That is actually a chronic problem, but it seems to be getting worse. He is having to use a cane to ambulate. He does not complain of headache or dizziness, and he has no focal neurologic symptoms. There has been further decline, though, and his memory and cognitive function. His indicates that has been getting more anxiety, mainly in the afternoons. Medications: ALPRAZolam 1 Tablet (of 0.25 mg) Oral b.i.d. PRN, Dexamethasone 1 Tablet (of 4 mg) Oral, Levothyroxine Sodium 1 Tablet (of 50 mcg) Oral daily, Meloxicam 1 Tablet (of 15 mg) Oral daily, Gunpowder-3 Fatty Acids 1 Capsule (of 1200 mg) Oral daily, Senna 2 Capsule (of 8.6 mg) Oral b.i.d. PRN, Simvastatin 1 Tablet (of 40 mg) Oral daily, Temozolomide (5 mg) Capsule Oral Take as Directed, traZODone HCl 1 - 2 Tablet (of 50 mg) Oral at bedtime, Vitamin D3 1 Tablet (of 1500 Units) Oral daily Allergies: No Known Allergies. Review of Systems: Constitutional - He continues to have a significant amount of weakness. He is no energy. He is mainly sedentary. His feels like his appetite has decreased and his weight is down 3 pounds from last visit. No fevers, night sweats, or hot flashes. ECOG score is 3, ENMT - No sinus congestion/drainage. No mouth sores. No sore throat or difficulty swallowing, Hematologic/Lymphatic - No abnormal bruising or bleeding, Respiratory - No shortness of breath. No cough. No pleuritic pain or hemoptysis, Cardiovascular - No angina pain. No palpitations, Gastrointestinal - No nausea or vomiting. No heartburn or acid reflux. No diarrhea or constipation. No blood in the stool or black stools, Genitourinary (M) - No dysuria or hematuria. No urinary frequency. No urgency or incontinence, Musculoskeletal - He is having pain in his left knee and ankle. He is now using a cane to ambulate, Integumentary - No skin complications, Neurologic - He has been having some headaches. No dizziness. No numbness or tingling. He is having a significant amount of confusion and memory loss, Psychiatric - His reports worsening in his anxiety and depression. He recently started taking the citalopram and his feels it helps. No insomnia. Vital Signs: Performed on Mar 05, 2020 11:05 Height - 71.00 in Weight - 194.2 lbs (LOW) BSA - 2.08 sq.m BMI - 27.09 Temperature - 98.0 F (LOW) Pulse - 62 /min Respiration - 19 /min BP - 146/82 mm(hg) (HIGH) O2 Sat - 97 % Pain - 8 Physical Examination: Constitutional - He appears generally weak, Eyes - Sclerae nonicteric. Conjunctivae clear, ENMT - No lesions noted in the oral cavity, Hematologic/Lymphatic - No cervical, clavicular, or axillary adenopathy, Respiratory - Lungs are clear with good air movement bilaterally, Cardiovascular - Heart rhythm is regular. There is no murmur, gallop, or rub noted, Abdomen - Soft. Liver and spleen are not enlarged. There is no abdominal mass or ascites noted and there is no inguinal adenopathy, Extremities - No edema, Neurologic - He is generally weak and he has postural instability. He does not appear to have any focal neurologic deficit. Lab/Imaging: Test performed on Mar 05, 2020 12:00 LDH (Total) 210 U/L Sodium 143 mmol/L Potassium 4.1 mmol/L Chloride 109 mmol/L CO2 27 mmol/L Anion Gap 11.1 BUN 19 mg/dL Creatinine 0.7 mg/dL Cr Clearance (Est) 115.8900 mL/min Glucose 99 mg/dL Calcium 9.2 mg/dL Protein, Total 6.4 g/dL Albumin 4.1 g/dL Globulin 2.3 g/dL Bilirubin, Total 0.4 mg/dL ALT (SGPT) 32 U/L AST (SGOT) 20 U/L Alkaline Phosphatase 45 IU/L WBC 3.2 10 3/uL RBC 3.86 10 6/uL HGB 12.7 g/dL HCT 38.6 % MCV 100.0 fL MCH 32.9 pg MCHC 32.9 g/dL RDW 14.6 % Platelet Count 101 10 3/cmm MPV 8.7 fL Neutrophils 2.01 10 3/uL Lymphocytes 0.8 10 3/uL Monocytes 0.4 10 3/uL Eosinophils 0.0 10 3/uL Basophils 0.0 10 3/uL Neutrophil % 63.0 % Lymphocyte % 24.5 % Monocyte % 11.0 % Eosinophil % 0.3 % Basophils % 0.3 % NRBC % 0 % Impression: 1. Patient with diffuse large B-cell lymphoma, germinal center subtype, presenting with CT evidence of left periaortic lymphadenopathy. By clinical evaluation his disease was at least stage III with IPI score 3. He underwent CT-directed needle biopsy of a left periaortic lymph node on 06/05/2019. 2. There was also PET/CT evidence of FDG avid left upper lobe pulmonary nodule, possibly indicative of extranodal lymphoma (stage IV) versus other primary malignancy. 3. He underwent treatment with 4 cycles of R-CHOP chemotherapy from 06/28/2019 thru 09/05/2019. He had evidence of very good response by restaging PET/CT after 2 cycles. 4. He had worsening memory loss and cognitive dysfunction following his third and fourth cycles of chemotherapy. He was then found by brain MRI on 09/20/2019 to have a large left frontal lobe brain mass. 5. He underwent craniotomy/excision of the brain mass on 09/24/2019 with pathology consistent with glioblastoma multiforme. His other medical illnesses include: 6. Hypertension. 7. Hyperlipidemia. 8. Hypothyroidism. 9. Degenerative arthritis. 10. He underwent abdominal aortic aneurysm repair with bifurcation graft in 2016. He had significant improvement in his neurologic symptoms following the surgery. On 10/31/2019 he began postoperative radiation concurrently with temozolomide chemotherapy. He completed radiation on 12/06/2019 to a total dose of 5400 cGy. Overall, he tolerated the treatment well, and he was able to continue the temozolomide with no dose reductions or interruptions. At that point I had attempted to reduce the dexamethasone to 1 mg daily, but he did not seem to tolerate it, and the dosage was then increased back to 2 mg daily. His repeat brain MRI on 01/07/2020 showed residual postoperative collection containing hemosiderin and necrosis in the left frontal lobe with a maximum diameter of 3.0 cm. There was some residual edema and there were foci of abnormal patchy enhancement at the resection site which were felt to be highly suspicious for residual tumor. Overall, though, there was dramatic improvement in the appearance of the left frontal lobe compared to the pretreatment study. He then began cycle 1 of monthly temozolamide at 150 mg/m??? daily for 5 days. His restagin PET/CT on 01/12/20 showed further decrease in para-aortic mass with no areas of abnormal FDG uptake, consistent with positive response to therapy. He tolerated the 1st cycle of monthly temozolamide without acute toxicity. At his follow-up visit on 02/06/2020 he had experienced some decline in his cognitive function and in his activity tolerance. At that point I did opt to proceed with a second cycle of temozolomide. Since then there has been further decline in both the cognitive function and the performance status, though with no evidence on MRI of progression of his MUSEUM HOST/HOSTESS disease. Plan: Due to the continued decline in his cognitive function and his performance status, I will not attempt any further chemotherapy. At least for now he will continue dexamethasone at 2 mg daily. He is advised to stop the meloxicam. He will be given a prescription for hydrocodone 5/APAP to take as needed for his knee and ankle pain. I will plan to see him again in [address] scans of the chest, abdomen, and pelvis for restaging of his lymphoma. In the meantime, I also will request neurology consultation with Dr. Ruth regard to his declining cognitive function. Signed By: Murray Hoffman M.D. <<Signature on File>>
== END 2020-03-17 23:59 | disposition home or self-care (01) ==
LOC: ONCMED 06:04
PROVIDERS: PCP Family Medicine; Visit Provider Internal Medicine Medical Oncology
DX: C71.1 Malignant neoplasm of frontal lobe (principal); E78.5 Hyperlipidemia, unspecified; I10 Essential (primary) hypertension; E03.9 Hypothyroidism, unspecified
CPT/HCPCS: 80053; 83615; 85025; 99214

== ENCOUNTER 2020-04-08 19:26 | Emergency (ER) | payer MEDICARE, OTHER, SELFPAY ==
[2020-04-08 19:27] VITALS: BMI 26.9
--- NOTE | 2020-04-08 19:32 | CTR_ITS ---
PROCEDURE INFORMATION: Exam: CT Thoracic Spine Without Contrast Exam date and time: 04/08/2020 7:42 PM Age: 75 years old Clinical indication: Injury or trauma; Fall; Initial encounter; Blunt trauma (contusions or hematomas); Prior surgery TECHNIQUE: Imaging protocol: Computed tomography images of the thoracic spine without contrast. Sagittal and coronal reformatted images were created and reviewed. Radiation optimization: All CT scans at this facility use at least one of these dose optimization techniques: automated exposure control; mA and/or kV adjustment per patient size (includes targeted exams where dose is matched to clinical indication); or iterative reconstruction. COMPARISON: No relevant prior studies available. RADIATION DOSE METRICS: Total DLP (mGy-cm): 2435.58 FINDINGS: Vertebrae: Vertebral body height is maintained. No subluxation. Normal bone mineralization. No acute fracture. Discs/Spinal canal/Neural foramina: Multilevel degenerative changes of varying severity in the visualized spine. Epidural space: No evidence for an epidural hematoma. Soft tissues: No paravertebral soft tissue abnormality. Vasculature: Mild atherosclerotic changes in the visualized arteries. Lymph nodes: Calcified lymph nodes in the mediastinum and left hilum. Lungs: Dependent atelectasis in the lungs bilaterally. Calcified granuloma in the the visualized left lower lobe. Heart: Mild atherosclerotic calcification in the visualized coronary arteries. CT/CT thoracic spin wo con* [id number] IMPRESSION: 1. No acute fracture of the thoracic spine. 2. Multilevel degenerative changes of varying severity in the visualized spine. 3. Incidental/nonacute findings are listed in the report. Radiation Dose CTDIVOL = (mGy): DLP = 2435.58 (mGy-cm)
--- NOTE | 2020-04-08 19:32 | CTR_ITS ---
PROCEDURE INFORMATION: Exam: CT Head Without Contrast Exam date and time: 04/08/2020 7:42 PM Age: 75 years old Clinical indication: Injury or trauma; Fall; Altered mental status/memory loss; Prior surgery TECHNIQUE: Imaging protocol: Computed tomography of the head without contrast. Radiation optimization: All CT scans at this facility use at least one of these dose optimization techniques: automated exposure control; mA and/or kV adjustment per patient size (includes targeted exams where dose is matched to clinical indication); or iterative reconstruction. COMPARISON: MR head wo/w con [id number] 2020-03-03 09:21 RADIATION DOSE METRICS: Total DLP (mGy-cm): 859.57 FINDINGS: Brain: Chronic left frontal extra-axial 6 mm hygroma. Left frontal lobe encephalomalacia. Ventricles: Left lateral ventricle ex vacuo dilatation from volume loss. No acute hemorrhage. Bones/joints: Left frontal parietal craniotomy. Paranasal sinuses: Visualized sinuses are unremarkable. No fluid levels. Mastoid air cells: Visualized mastoid air cells are well aerated. Soft tissues: Unremarkable. CT/CT head wo con* [id number] IMPRESSION: No acute intracranial abnormality. Radiation Dose CTDIVOL = (mGy): DLP = 859.57 (mGy-cm)
--- NOTE | 2020-04-08 19:32 | CTR_ITS ---
PROCEDURE INFORMATION: Exam: CT Lumbar Spine Without Contrast Exam date and time: 04/08/2020 7:42 PM Age: 75 years old Clinical indication: Injury or trauma; Fall; Initial encounter; Blunt trauma (contusions or hematomas); Prior surgery TECHNIQUE: Imaging protocol: Computed tomography images of the lumbar spine without contrast. Sagittal and coronal reformatted images were created and reviewed. Radiation optimization: All CT scans at this facility use at least one of these dose optimization techniques: automated exposure control; mA and/or kV adjustment per patient size (includes targeted exams where dose is matched to clinical indication); or iterative reconstruction. COMPARISON: [place] - PET Scan 01/12/2020 8:38:00 AM RADIATION DOSE METRICS: Total DLP (mGy-cm): 2372.03 FINDINGS: Vertebrae: Vertebral body height is maintained. No subluxation. Normal bone mineralization. No acute fracture. Discs/Spinal canal/Neural foramina: Multilevel degenerative changes of varying severity in the visualized spine. Mild spinal canal stenosis at L3-L4 and L4-L5. Multilevel foraminal stenosis of varying severity in the visualized spine. Sacrum/coccyx: Mild degenerative changes of the right sacroiliac joint. There is partial fusion of the left sacroiliac joint, consistent with a remote episode of seronegative sacroiliitis versus sequela of degenerative change. Vasculature: Atherosclerotic changes in the visualized arteries. Aneurysm of the infrarenal abdominal aorta is partially visualized. The visualized portion of the aneurysm is stable in size measuring 6.3 cm in transverse diameter (series 3, image 45). The aneurysm extends into the right common iliac artery, the right MARGOT measures 3.1 cm in diameter, unchanged (series 3, image 83). Stable changes consistent with endovascular repair of the aneurysm. Soft tissues: No paravertebral soft tissue abnormality. No radiopaque foreign body. CT/CT lumbar spine wo con* [id number] IMPRESSION: 1. No acute fracture of the lumbar spine. 2. Multilevel degenerative changes of varying severity in the visualized spine. Mild spinal canal stenosis at L3-L4 and L4-L5. Multilevel foraminal stenosis of varying severity in the visualized spine. 3. Stable changes consistent with endovascular repair of an abdominal aortic aneurysm extending into the right common iliac artery. Visualized aneurysms are stable. 4. Incidental/nonacute findings are listed in the report. Radiation Dose CTDIVOL = (mGy): DLP = 2372.03 (mGy-cm)
--- NOTE | 2020-04-08 19:32 | CTR_ITS ---
PROCEDURE INFORMATION: Exam: CT Cervical Spine Without Contrast Exam date and time: 04/08/2020 7:42 PM Age: 75 years old Clinical indication: Injury or trauma; Fall; Initial encounter; Blunt trauma TECHNIQUE: Imaging protocol: Computed tomography images of the cervical spine without contrast. Radiation optimization: All CT scans at this facility use at least one of these dose optimization techniques: automated exposure control; mA and/or kV adjustment per patient size (includes targeted exams where dose is matched to clinical indication); or iterative reconstruction. COMPARISON: No relevant prior studies available. RADIATION DOSE METRICS: Total DLP (mGy-cm): 706.85 FINDINGS: Vertebrae: Straightening of the normal cervical lordotic curvature. Normal vertebral body heights and alignments. No fractures. Discs/Spinal canal/Neural foramina: Diffuse degenerative disc space loss with degenerative disc osteophyte complexes, facet arthropathy, and ligamentum flavum thickening causes up to moderate spinal and foraminal stenosis greatest at C3-C7. Soft tissues: Unremarkable. Lungs: Lung apices are normal. CT/CT cervical spin wo con* [id number] IMPRESSION: No acute fracture/subluxation. Radiation Dose CTDIVOL = (mGy): DLP = 706.85 (mGy-cm)
[2020-04-08 19:53] LABS: Basophils % 0.3 %; Eosinophils % 0.5 %; Hematocrit 32.9 % (42.0-52.0); Lymphocytes # 0.7 10^3/uL (0.8-4.8); Lymphocytes % 18.3 %; Mean Corpuscular HGB Conc 33.4 g/dL (30.0-36.0); Mean Corpuscular Hemoglobin 33.6 pg (28.0-34.0); Mean Corpuscular Volume 100.6 fL (80-94); Monocytes # 0.3 10^3/uL (0.2-0.9); Monocytes % 7.7 %; Neutrophils # 2.73 10^3/uL (1.8-7.7); Neutrophils % 72.1 %; Nucleated Red Blood Cells % 0 %; Platelet Count 98 10^3/cmm (130-400); Red Blood Count 3.27 10^6/uL (4.1-5.3); Red Cell Distribution Width 15.1 % (12.1-15.1); White Blood Count 3.8 10^3/uL (4.0-10.0)
--- NOTE | 2020-04-08 19:57 | ED_ITS ---
HPI - Weakness General: Chief complaint: Weakness Stated complaint: fall, back pain Time Seen by Provider: 04/08/20 19:27 History of Present Illness: HPI Narrative: This patient is a 75-year-old gentleman who fell at home today. He actually is fallen twice. He fell this morning and EMS came out evaluated him but he did not want to come to the hospital. At that time he had hit his head and had a hematoma on the left side of his scalp. He fell again this afternoon trying to get out of bed and now has back pain all the way up and down his back. He has a history of brain cancer. He also had B-cell lymphoma. These were treated with chemotherapy and ra diation. He has not been doing well and not responding well and has not had any treatments in at least a month. He does take 2 mg of dexamethasone daily. He is awake and alert but says he has a lot of problems with his memory. He denies any focal weakness but complains of being generally weak. MD Complaint: generalized weakness Onset (ago): unknown Location: generalized Associated symptoms: Reports confusion; Denies chest pain, chills, easy bruising, fever(s), headache(s), nausea or vomiting Review of Systems General: Reports: 10 or more systems reviewed and unremarkable except in HPI and below Const: Reports: fatigue; Denies: fever(s), chills or malaise Eyes: Denies: change in vision ENMT: Denies: odynophagia Card: Denies: chest pain or swelling of feet/ankles Resp: Denies: dyspnea, productive cough or non-productive cough GI: Denies: abdominal pain, nausea or vomiting : Denies: flank pain Musc: Reports: back pain; Denies: neck pain Skin/Breast: Denies: rash Neuro: Reports: weakness in extremities, frequent falls and confusion; Denies: headache(s) or numbness in extremities Cong/Lymph: Denies: easy bruising or easy bleeding PFSH ED PFSH: Social History Smoking and tobacco status: former smoker Physical Exam Const: COMMON NORMALS: no acute distress, patient oriented x3, no limitations and alert GENERAL APPEARANCE: cooperative and comfortable HENMT: HEAD & SCALP: normal to inspection FACE & SINUS: normal facial exam Eye: GENERAL EYE: appearance normal, both eyes and all related structures Neck/C-Spine: COMMON NORMALS: supple, no meningeal signs and no JVD GENER AL: Yes tender Chest: COMMONS NORMALS: normal inspection of the chest Resp: COMMON NORMALS: normal respiratory effort, No use of accessory muscles and clear to auscultation bilaterally AUSCULTATION: clear to auscultation bilaterally Cardio: COMMON NORMALS: no JVD, regular rate, regular rhythm and No murmurs present (Cardio) RATE: regular rate RHYTHM: regular rhythm GI: COMMON NORMALS: Normal to inspection, nondistended, normoactive bowel sounds present, Soft to palpation and non-tender INSPECTION: Yes normal to inspection AUSCULTATION: Yes normoactive bowel sounds PALPATION: Yes Soft to palpation Back/Pelvis: THORACIC SPINE/UPPER BACK: Yes thoracic spinal tenderness LUMBAR SPINE/LOWER BACK: Yes lumbar spinal tenderness Extremity: COMMON NORMALS: normal to inspection Neuro: COMMON NORMALS: patient oriented x3, moves all extremities, no focal motor deficits and no sensory deficits noted SENSORIUM/ORIENTATION: Yes alert MENINGEAL SIGNS: Yes no meningeal signs Psych: COMMON NORMALS: mental status grossly normal, cooperative and normal affect Skin: COMMON NORMALS: no rashes or lesions noted and turgor normal GENERAL SKIN EXAM: no rashes or lesions noted and turgor normal Course ED course: This patient has been having more frequent falls recently. We discussed using a walker at home and other ideas to help keep him from falling. His says that Dr. Hoffman has initiated the process to get him started with hospice. They have an appoint with Dr. Hoffman at 9:00 in the morning. They were both comfortable with him going home today. Vital Signs: Vital signs: Vital Signs Pulse Rate 56 L 04/08/20 21:48 Respiratory Rate 14 04/08/20 21:48 Blood Pressure 159/84 04/08/20 21:48 Pulse Oximetry 92 04/08/20 21:48 MDM - Weakness Lab Data: Labs: Lab Results 04/08/20 04/08/20 Range/Units 19:40 19:40 WBC 3.8 L (4.0-10.0) 10^3/ uL RBC 3.27 L (4.1-5.3) 10^6/u L Hgb 11.0 L (11.7-16.6) g/dL Hct 32.9 L (42.0-52.0) % MCV 100.6 H (80-94) fL MCH 33.6 (28.0-34.0) pg MCHC 33.4 (30.0-36.0) g/dL RDW 15.1 (12.1-15.1) % Plt Count 98 L (130-400) 10^3/c mm MPV 9.0 (7.4-10.4) fL Neut % (Auto) 72.1 % Lymph % (Auto) 18.3 % Teller % (Auto) 7.7 % Eos % (Auto) 0.5 % Baso % (Auto) 0.3 % Neut # (Auto) 2.73 (1.8-7.7) 10^3/u L Lymph # (Auto) 0.7 L (0.8-4.8) 10^3/u L Teller # (Auto) 0.3 (0.2-0.9) 10^3/u L Eos # (Auto) 0.0 (0.0-0.8) 10^3/u L Baso # (Auto) 0.0 (0.0-0.1) 10^3/u L Nucleated RBC % (a uto) 0 % Nucleated RBCs # 0.0 /100WBC Sodium 147 H (136-145) mmol/L Potassium 3.5 (3.5-5.1) mmol/L Chloride 114 H (98-107) mmol/L Carbon Dioxide 23 (22-29) mmol/L Anion Gap 13.5 (5-19) BUN 20 (8-23) mg/dL Creatinine 0.6 L (0.7-1.2) mg/dL GFR Calculation Not Reportable Glucose 129 H (65-115) mg/dL Calculated Osmolal ity 308 H (285-295) mOsm/k g Calcium 7.9 L (8.5-10.5) mg/dL Total Bilirubin 0.3 (0.15-1.2) mg/dL AST 18 (0-40) U/L ALT 23 (0-41) U/L Alkaline Phosphata se 43 (40-130) IU/L Total Protein 5.7 L (6.6-8.7) g/dL Albumin 3.7 (3.5-5.2) g/dL Globulin 2.0 (1.3-4.6) g/dL Discharge Plan Discharge Patient Disposition: Home Clinical Impression: Fall Qualifiers: Encounter type: initial encounter Qualified Code(s): W19.XXXA - Unspecified fall, initial encounter Condition: Stable Prescriptions: No Action levothyroxine 50 mcg tablet 50 mcg PO DAILY RF: 0 trazodone 50 mg tablet 50 mg PO BEDTIME RF: 0 simvastatin 40 mg tablet 40 mg PO DAILY RF: 0 dexamethasone 2 mg tablet 2 mg PO DAILY RF: 0 Vitamin D3 25 mcg (1,000 unit) Tablet 25 mcg PO DAILY RF: 0 Discharge Orders: Discharge Order (Routine); Ordered 04/08/20 Ordered By: Katie Pedersen Referrals: Megan Bach DO [Primary Care Provider] - Discharge Diet: Usual diet Discharge Activity: Resume usual activity and Use walker/crutches as instructed Patient Instructions: Fall Prevention for Older Adults (ED) Activity Restrictions/Additional Instructions: Follow up with Dr. Hoffman as planned in the morning. 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
[2020-04-08 20:01] LABS: Alanine Aminotransferase 23 U/L (0-41); Albumin Level 3.7 g/dL (3.5-5.2); Alkaline Phosphatase 43 IU/L (40-130); Anion Gap 13.5 (5-19); Aspartate Amino Transferase 18 U/L (0-40); Blood Urea Nitrogen 20 mg/dL (8-23); Calcium 7.9 mg/dL (8.5-10.5); Carbon Dioxide 23 mmol/L (22-29); Chloride 114 mmol/L (98-107); Glucose 129 mg/dL (65-115); Osmolality Calculated 308 mOsm/kg (285-295); Potassium 3.5 mmol/L (3.5-5.1); Sodium 147 mmol/L (136-145); Total Bilirubin 0.3 mg/dL (0.15-1.2); Total Protein 5.7 g/dL (6.6-8.7)
[2020-04-08 20:24] VITALS: BP 144/87; PULSE 54; RESP 16; O2SAT 96
[2020-04-08 21:48] VITALS: BP 159/84; PULSE 56; RESP 14; O2SAT 92
== END 2020-04-08 22:05 | disposition home or self-care (01) ==
PROVIDERS: Emergency Provider Emergency Medicine; PCP Family Medicine
DX: R53.1 Weakness (principal); Z87.891 Personal history of nicotine dependence
CPT/HCPCS: 12345; 70450; 72125; 72128; 72131; 80053; 85025; 99282; 99283

== ENCOUNTER 2020-04-09 06:20 | Outpatient (RCR) | payer MEDICARE, OTHER, SELFPAY ==
[2020-04-04 12:40] LABS: Basophils % 0.2 %; Eosinophils % 0.2 %; Hematocrit 37.5 % (42.0-52.0); Hemoglobin 12.5 g/dL (11.7-16.6); Lymphocytes # 0.6 10^3/uL (0.8-4.8); Lymphocytes % 9.9 %; Mean Corpuscular HGB Conc 33.3 g/dL (30.0-36.0); Mean Corpuscular Hemoglobin 33.5 pg (28.0-34.0); Mean Corpuscular Volume 100.5 fL (80-94); Mean Platelet Volume 8.7 fL (7.4-10.4); Monocytes # 0.3 10^3/uL (0.2-0.9); Monocytes % 5.2 %; Neutrophils # 4.82 10^3/uL (1.8-7.7); Neutrophils % 83.6 %; Nucleated Red Blood Cells % 0 %; Platelet Count 117 10^3/cmm (130-400); Red Blood Count 3.73 10^6/uL (4.1-5.3); White Blood Count 5.8 10^3/uL (4.0-10.0)
[2020-04-04 12:54] LABS: Alanine Aminotransferase 23 U/L (0-41); Albumin Level 4.1 g/dL (3.5-5.2); Alkaline Phosphatase 51 IU/L (40-130); Anion Gap 14.7 (5-19); Aspartate Amino Transferase 16 U/L (0-40); Blood Urea Nitrogen 14 mg/dL (8-23); Carbon Dioxide 25 mmol/L (22-29); Chloride 109 mmol/L (98-107); Globulin 2.5 g/dL (1.3-4.6); Glucose 89 mg/dL (65-115); Lactate Dehydrogenase 196 U/L (135-225); Osmolality Calculated 300 mOsm/kg (285-295); Potassium 3.7 mmol/L (3.5-5.1); Sodium 145 mmol/L (136-145); Total Bilirubin 0.5 mg/dL (0.15-1.2); Total Protein 6.6 g/dL (6.6-8.7)
--- NOTE | 2020-04-07 09:18 | CT_ITS ---
WS: [id number] CT CHEST, ABDOMEN AND PELVIS WITH CONTRAST. HISTORY: LYMPHOMA TECHNIQUE: Contiguous 5 mm axial imaging performed through the chest, abdomen and pelvis with IV cont rast, oral contrast has been provided. Coronal and sagittal reformats chest. Coronal and sagittal ref ormats through the abdomen and pelvis. All CT scans at [facility] use at least one of the se dose optimization techniques: automated exposure control; mA and/or kV adjustment per patient size (includes targeted exams where dose is matched to clinical indication); or iterative reconstruction. CONTRAST: Omnipaque 300; 95 mL IV. DLP: 2674.08 mGycm COMPARISON: Head CT 01/12/[address]: Minimal pleural thickening and scarring at the LEFT lung base. No mass or pulmonary nodule. Mild atherosclerosis thoracic aorta. No aneurysm. Moderate calcifications in the jena coronary art eries. Cardiac chambers are slightly enlarged but stable. No mediastinal or hilar adenopathy. No axil rosina adenopathy. No significant hiatal hernia. Abdomen CT: Liver, spleen, gallbladder, adrenals and pancreas are stable. Splenic and hepatic granulo manning. No metastatic disease. Endovascular stent grafting of the abdominal aorta. The largest jena a neurysm is unchanged in size. Maximum transverse diameter of 6.1 cm is stable. No periaortic hematoma . Mesenteric and retroperitoneal lymph nodes are stable. The largest maximum transverse diameter is a c entral mesenteric lymph node at 2.2 cm. There are additional stable lymph nodes that are adjacent and inseparable from the LEFT lateral abdominal aorta which are also stable. No new lymph nodes or incre asing size of lymph nodes. No ascites. Extensive diverticular disease in the descending and sigmoid colon without acute diverticulitis. No o bstructive pattern. Pelvic CT: Urinary bladder is not distended. There is mild wall thickening due to the nondistention. No free fluid or adenopathy in the pelvis. No inguinal lymph nodes. Inguinal canals are patent bilate rally containing fat only. No osteoblastic or osteolytic bone disease. Mild degenerative changes at the hip joints bilaterally. CT/CT chest abd pel w con* IMPRESSION: 1. No interval change in the chest, abdomen and pelvis since the PET/CT of 12/17. 2. Abdominal adenopathy is stable in size with the largest lymph node at 2.2 c m. FDG negative on the recent PET/CT. 3. No ascites. 4. Endovascular stent grafting of the abdominal aortic aneurysm and iliac nargis serafin is stable. 5. Coronary artery calcifications. No metastatic disease in the chest.
[2020-04-07] MEDS: iohexol 300 mg/mL 50 mL Btl PO (09:41)
[2020-04-07] MEDS: iohexol 300 mg/mL 100 mL Btl IV (11:23)
--- NOTE | 2020-04-09 19:49 | ONC FU_ITS ---
Dr. Hoffman Patient Follow-Up Note Patient: Mauro Otero Unit #: [id number]: [id number] Dicatated By: Murray Hoffman M.D.Date of Visit:Apr 09, 2020 Onc Med Follow-up/Prog Note Chief Complaint: Lymphoma/glioblastoma multiforme. History of Present Illness: This is a 75 year-old man with diffuse large B-cell lymphoma, by clinical evaluation at least stage III and IPI at least 3. He subsequently was found to have glioblastoma multiforme involving the left frontal lobe of the brain. He has a known history of abdominal aortic aneurysm for which he underwent abdominal aortic aneurysm repair using bifurcation graft in 2016. On his surveillance CT angiogram in April 2019 he was incidentally noted to have left periaortic lymphadenopathy. He then underwent CT directed needle biopsy of the left periaortic lymph node on 06/05/2019. Pathology was consistent with diffuse large B-cell lymphoma. The tumor cells were noted to be positive for CD45, CD20, CD10, CD23, BCL-2, and BCL-6. They were negative for CD3, CD5, CD21, CD30, and cyclin D1. The staining pattern by IHC was found to be consistent with diffuse large B-cell lymphoma, germinal center type. I had seen him initially on 06/18/2019. Staging PET/CT on 06/23/2019 showed a 1.9 x 1.3 cm left upper lobe pulmonary nodule with SUV 23.8, consistent with extranodal disease. Also noted were FDG positive lymph nodes in the posterior mediastinum and left hilar region with SUVs up to 9.4. Bilateral retrocrural lymph nodes were also FDG positive. A complex retroperitoneal mass was noted to envelop the aortic aneurysm, roughly measuring 12.9 x 9.9 cm with SUV 34.4. There were positive mesenteric lymph nodes, consistent with lymphoma. His baseline echocardiogram showed normal left ventricular systolic function with ejection fraction estimated at 65%. With those findings and with relatively good performance status, he was recommended to undergo treatment with R-CHOP chemotherapy. He began cycle 1 of R-CHOP chemotherapy on 06/28/2019. He tolerated the treatment with acceptable toxicity. He was then able to continue with cycle 2 on 07/19/2019 and with cycle 3 on 08/09/2019. Restaging PET/CT on 09/01/2019 showed residual abdominal mass encasing the aorta measuring 8.6 x 8.7 cm but with only minimal FDG activity. Mediastinal lymph nodes were noted to be subcentimeter in size and FDG negative. Retrocrural and lymph nodes were also subcentimeter in size and FDG negative. The left upper lobe pulmonary nodule was noted to measure 1.0 cm and it was no longer clearly solid. It was entirely FDG negative. Overall, the findings were consistent with a near complete response to therapy (Deauville Criteria 2). At that point he had reported increased memory loss and cognitive dysfunction, which I had assumed that it was chemotherapy related. I had encouraged him, though, to complete a least 1 more cycle of treatment, and he then continued with cycle 4 of R-CHOP on 09/05/2019. His cognitive function continued to worsen fairly dramatically. He then had evaluation with head MRI on 09/20/2019. It showed a large heterogeneously enhancing left frontal mass measuring 7.1 x 3.3 x 5.5 cm. There was a large amount of surrounding edema and there was associated left to right midline shift measuring 1.7 cm. Enhancement was noted to extend to the ventricular surface and cortical surface, suspicious for leptomeningeal spread of disease. There was effacement of the left lateral ventricle and partial effacement of the right lateral ventricle. He was transferred to [facility] for admission and on 09/24/2019 he underwent left frontal craniotomy with resection of the tumor. Pathology was consistent with glioblastoma multiforme. He tolerated the surgery well. He subsequently was transferred to the [facility] rehab facility in [place]. He returned home on 10/10/2019. He was then seen here for postoperative chemoradiation. He began radiation, concurrently with temozolomide chemotherapy on 10/31/2019. 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 His symptoms did improve, and during subsequent follow-up he was able to tolerate the temozolomide with no apparent adverse effects. He completed radiation on 12/06/2019 to a total dose of 5400 cGy. At that point his dexamethasone dosage was further tapered to 1 mg daily, but subsequently increased back to 2 mg daily. Repeat brain MRI on 01/07/2020 showed significant improvement in the postsurgical changes in the left frontal lobe compared to the 09/25/2019 visit. A postoperative subdural collection over the left frontal lobe had a maximum diameter of 8 mm, significantly improved. There was marked improvement in the peritumoral edema and midline shift or mass-effect. There was still a significant amount of residual edema which was felt to be in part post radiation. A postoperative collection in the center of the left frontal lobe was noted to contain hemosiderin and necrosis with a maximum diameter of 3.0 cm. On the postcontrast imaging there were numerous foci of abnormal patchy enhancement at the resection site, felt to be highly suspicious for additional tumor. Also noted were numerous patchy areas of enhancement surrounding the postoperative cavity, the largest located posterior and lateral to the resection cavity measuring 11 mm. There was additional nodular enhancement extending towards the left ventricle. With that finding he began his 1st of 6 planned cycles of monthly temozolamide at 150 mg/m??? daily for 5 days. He tolerated it without acute toxicity. A restaging PET/CT on 01/12/2020 showed further regression in the size of the mass which was previously encasing the abdominal aortic aneurysm. It was noted to be present discrete, enlarged nodes without FDG activity, indicative of ongoing positive response to therapy. There was no evidence of recurrence of mediastinal or abdominal adenopathy or of the left upper lobe pulmonary nodule. At his follow-up visit on 02/06/2020 he appeared to have some decline in his performance status and in his cognitive function. However, with the improvement in his MRI, we did opt to proceed with a second cycle of temozolomide. His repeat brain MRI on 03/03/2020 showed postoperative resection cavity for left frontal tumor resection. There was no increasing edema or mass effect or other evidence of tumor progression. There was improved appearance of the resection cavity with decreasing blood products, and there was improved enhancement about the resection cavity likely due to treatment-related changes. Also noted was improved subdural collection overlying the left frontal lobe. There was increasing periventnricular white matter changes consistent with treatment-related side effects. Patchy enhancement along the dorsal superior margin and inferior lateral margin resection cavity appeared stable. He was seen for a follow-up visit on 03/05/2020. He was showing further decline in his performance status and in his cognitive function. I opted to withhold any further chemotherapy. He continued dexamethasone at 2 mg daily. His other medical illnesses, in addition to the abdominal aortic aneurysm, include hypertension, hyperlipidemia, hypothyroidism, and degenerative arthritis. He is a non-smoker. INTERIM HISTORY: He is seen for a followup visit. He has continued to get weaker. He fell at home yesterday and got a pretty big knot on the left side of his head. He also injured his back. He was seen in the emergency room last evening. CT scans of the thoracic and lumbar spine showed degenerative changes but no fracture or other acute pathology. Head CT showed no acute intracranial abnormality. There was evidence of left frontal lobe encephalomalacia. He has had very limited activity at home. He has been trying to do a little bit of exercising, but he is mostly sedentary. His says that he can hardly get up and get around. His ECOG score is 3. His appetite has declined. His weight is down about 5 pounds. He does not have fever or night sweats. His says that he is antsy. He has confusion which comes and goes. He has agitation at times, but that does seem to be managed adequately with Haldol. He has been sleeping a lot. Medications: Dexamethasone 1 Tablet (of 4 mg) Oral, Levothyroxine Sodium 1 Tablet (of 50 mcg) Oral daily, Meloxicam 1 Tablet (of 15 mg) Oral daily, [place]-3 Fatty Acids 1 Capsule (of 1200 mg) Oral daily, Senna 2 Capsule (of 8.6 mg) Oral b.i.d. PRN, Simvastatin 1 Tablet (of 40 mg) Oral daily, Temozolomide (5 mg) Capsule Oral Take as Directed, traZODone HCl 1 - 2 Tablet (of 50 mg) Oral at bedtime, Vitamin D3 1 Tablet (of 1500 Units) Oral daily Allergies: No Known Allergies. Review of Systems: Constitutional - His overall performance status has declined. He is very weak and he is mainly sedentary. His appetite has decreased and his weight is down about 5 pounds. No fever, night sweats, or hot flashes. ECOG score is 3, ENMT - No sinus congestion/drainage. No mouth sores. No sore throat or difficulty swallowing, Hematologic/Lymphatic - No abnormal bruising or bleeding, Respiratory - No shortness of breath. No cough. No pleuritic pain or hemoptysis, Cardiovascular - No angina pain. No palpitations, Gastrointestinal - No nausea or vomiting. No heartburn or acid reflux. No diarrhea. He was having constipation. No blood in the stool or black stools, Genitourinary (M) - No dysuria or hematuria. No urinary frequency. No urgency or incontinence, Musculoskeletal - No joint or bone pain, Integumentary - No skin complications, Neurologic - He had a fall yesterday and hit his head, he was evaluated in the ER for this. He has a slight headache today. He has some dizziness in the morning. No numbness or tingling. He is having a lot of difficulty with his memory. He is also having increased agitation and he has displayed aggressive behavior. He is taking Haldol as needed for agitation. It has worked well per his family, Psychiatric - His anxiety is adequately managed with alprazolam. No depression. He is sleeping alot. Vital Signs: Performed on Apr 09, 2020 09:22 Height - 71.00 in Weight - 191.6 lbs (LOW) BSA - 2.07 sq.m BMI - 26.72 Temperature - 97.4 F (LOW) Pulse - 77 /min Respiration - 18 /min BP - 135/89 mm(hg) O2 Sat - 94 % (LOW) Pain - 7 Physical Examination: Constitutional - He appears generally weak, Eyes - Sclerae nonicteric. Conjunctivae clear, ENMT - No lesions noted in the oral cavity, Hematologic/Lymphatic - No cervical, clavicular, or axillary adenopathy, Respiratory - Lungs are clear with good air movement bilaterally, Cardiovascular - Heart rhythm is regular. There is no murmur, gallop, or rub noted, Abdomen - Soft. Liver and spleen are not enlarged. There is no abdominal mass or ascites noted and there is no inguinal adenopathy, Extremities - No edema, Integumentary - There is a small skin tear on the lower right leg, Neurologic - He is generally weak and he has postural instability. He ambulates with a walker. He has a shuffling gait. He does not appear to have any focal neurologic deficit. Lab/Imaging: CBC shows hemoglobin 11.0 g, white blood cell count 3800, and platelet count 98,000. Comprehensive metabolic profile is unremarkable except for slightly elevated sodium and chloride levels. Impression: 1. Patient with diffuse large B-cell lymphoma, germinal center subtype, presenting with CT evidence of left periaortic lymphadenopathy. By clinical evaluation his disease was at least stage III with IPI score 3. He underwent CT-directed needle biopsy of a left periaortic lymph node on 06/05/2019. 2. There was also PET/CT evidence of FDG avid left upper lobe pulmonary nodule, possibly indicative of extranodal lymphoma (stage IV) versus other primary malignancy. 3. He underwent treatment with 4 cycles of R-CHOP chemotherapy from 06/28/2019 thru 09/05/2019. He had evidence of very good response by restaging PET/CT after 2 cycles. 4. He had worsening memory loss and cognitive dysfunction following his third and fourth cycles of chemotherapy. He was then found by brain MRI on 09/20/2019 to have a large left frontal lobe brain mass. 5. He underwent craniotomy/excision of the brain mass on 09/24/2019 with pathology consistent with glioblastoma multiforme. His other medical illnesses include: 6. Hypertension. 7. Hyperlipidemia. 8. Hypothyroidism. 9. Degenerative arthritis. 10. He underwent abdominal aortic aneurysm repair with bifurcation graft in 2015. He had significant improvement in his neurologic symptoms following the surgery. On 10/31/2019 he began postoperative radiation concurrently with temozolomide chemotherapy. He completed radiation on 12/06/2019 to a total dose of 5400 cGy. Overall, he tolerated the treatment well, and he was able to continue the temozolomide with no dose reductions or interruptions. At that point I had attempted to reduce the dexamethasone to 1 mg daily, but he did not seem to tolerate it, and the dosage was then increased back to 2 mg daily. His repeat brain MRI on 01/07/2020 showed residual postoperative collection containing hemosiderin and necrosis in the left frontal lobe with a maximum diameter of 3.0 cm. There was some residual edema and there were foci of abnormal patchy enhancement at the resection site which were felt to be highly suspicious for residual tumor. Overall, though, there was dramatic improvement in the appearance of the left frontal lobe compared to the pretreatment study. He then began cycle 1 of monthly temozolamide at 150 mg/m??? daily for 5 days. His restagin PET/CT on 01/12/20 showed further decrease in para-aortic mass with no areas of abnormal FDG uptake, consistent with positive response to therapy. He tolerated the 1st cycle of monthly temozolamide without acute toxicity. At his follow-up visit on 02/06/2020 he had experienced some decline in his cognitive function and in his activity tolerance. At that point I did opt to proceed with a second cycle of temozolomide. A repeat head MRI on 03/03/2020 showed postoperative changes in the left frontal lobe with no evidence of tumor progression and no increasing edema or mass-effect. There was improved appearance to the resection cavity with decreasing blood products and there was improved enhancement about the resection cavity thought to be likely due to treatment related changes. Patchy enhancement along the dorsal superior margin and inferior lateral margin resection cavity appeared stable. The subdural collection overlying the left frontal lobe also showed improvement. There was increasing periventricular white matter changes consistent with treatment related effect. At his visit on 03/05/2020 there was further decline in his cognitive function and in his performance status. I opted not to attempt any further chemotherapy. During follow-up he has continued to show decline in performance status and cognitive function. It is uncertain to what extent this is related to the tumor or to the radiation. As of February, though, his MRI did not show any evidence of progression of the brain tumor and his recent restaging CT scans of the chest, abdomen, and pelvis showed no evidence of progression of the lymphoma. Plan: He is now being followed on symptomatic/supportive care. His management at home has become increasingly problematic for his , she has had treatment for colon cancer and is not particularly robust herself. We discussed some possible options, which unfortunately are limited. I would like to check and see if he may be eligible for physical therapy at home, but I doubt that any other type of assistance at home would be covered by Medicare. I am still trying to arrange for evaluation with Dr. Ruth. If his general condition continues to decline, hospice referral may be the best option. I will tentatively plan a follow-up visit in 1 month. In the meantime, I will have him try increasing dexamethasone to 2 mg twice daily. Signed By: Murray Hoffman M.D. <<Signature on File>>
== END 2020-04-16 23:59 | disposition home or self-care (01) ==
LOC: ONCMED 06:20
PROVIDERS: PCP Family Medicine; Visit Provider Internal Medicine Medical Oncology
DX: C83.33 Diffuse large B-cell lymphoma, intra-abdominal lymph nodes (principal); C79.31 Secondary malignant neoplasm of brain; I10 Essential (primary) hypertension; E78.5 Hyperlipidemia, unspecified; E03.9 Hypothyroidism, unspecified; M19.90 Unspecified osteoarthritis, unspecified site; Z92.21 Personal history of antineoplastic chemotherapy; Z92.3 Personal history of irradiation
CPT/HCPCS: 36415; 71260; 74177; 80053; 83615; 85025; 99214; Q9967

== ENCOUNTER 2020-04-17 08:00 | Outpatient (RCR) | payer MEDICARE, OTHER, SELFPAY | END 2020-05-17 08:58 | disposition home or self-care (01) | LOC: ONCMED 08:00 | PROVIDERS: PCP Family Medicine; Visit Provider Internal Medicine Medical Oncology | DX: G31.83 Neurocognitive disorder with Lewy bodies (principal); F02.80 Dementia in other diseases classified elsewhere, unspecified severity, without behavioral disturbance, psychotic disturbance, mood disturbance, and anxiety; C71.1 Malignant neoplasm of frontal lobe; C85.80 Other specified types of non-Hodgkin lymphoma, unspecified site; Z87.891 Personal history of nicotine dependence | CPT/HCPCS: 99205 ==